=== PATIENT | female | born 1940 | race Caucasian/White ===

== ENCOUNTER → 2017-05-28 | Outpatient (CLI) | payer OTHER ==
[~2017-05-28] MED LIST: IBUP-1050 PO
--- NOTE | 2017-05-28 15:12 | MAMMOGRAPHY REPORT ---
BILATERAL DIGITAL SCREENING MAMMOGRAM WITH CAD: 05/28/2017 CLINICAL HISTORY: Routine screening. Patient has no complaints. TECHNIQUE: Bilateral CC and MLO views were obtained. Current study was also evaluated with a Compute r Aided Detection (CAD) system. COMPARISON: Comparison is made to exams dated: 05/22/2016 mammogram, 05/10/2015 mammogram, 05/04/2014 m ammogram, 04/28/2013 mammogram, 04/22/2012 mammogram, and 04/13/2011 mammogram - [facility] nter. BREAST COMPOSITION: There are scattered areas of fibroglandular density in both breasts. FINDINGS: There are a few benign round calcifications in the breasts. Stable asymmetry in the superi or right breast. No new suspicious mass, architectural distortion or cluster of microcalcifications is seen. IMPRESSION: ACR BI-RADS CATEGORY 1: NEGATIVE There is no mammographic evidence of malignancy. A 1 year screening mammogram is recommended. The pa tient will receive written notification of the results. Approximately 10% of breast cancers are not detected with mammography. A negative mammographic report should not delay biopsy if a clinically suggestive mass is present. Cassie Zhu M.D. ay/:05/28/2017 09:16:47 Mortgage Manager: Lakeisha DEJESUS(R)(M), [facility] letter sent: Normal 1/2 BI-RADS Code: ACR BI-RADS Category 1: Negative
== END | disposition home or self-care (01) ==
LOC: C.MAMM 07:15
PROVIDERS: ATTEND Family Medicine
DX: Z12.31 Encounter for screening mammogram for malignant neoplasm of breast (principal)

== ENCOUNTER → 2017-07-26 | Outpatient (CLI) | payer OTHER ==
--- NOTE | 2017-07-26 12:14 | DIAGNOSTIC IMAGING REPORT ---
RIGHT INJ MAJOR JNT SHLDR,HIP,KNEE CLINICAL HISTORY: 77 years-old Female presenting with RIGHT HIP PAIN Right. COMPARISON: None. PROCEDURE: The risks, benefits, and alternatives to the procedure were discussed with the patient. Written informed consent was obtained. The patient was placed supine on the fluoroscopy table, and a right hip injection was performed under fluoroscopic guidance. The area was prepped and draped in the usual sterile fashion. The skin and soft tissues anesthetized with local 1% lidocaine. The right hip joint was accessed utilizing a 22-gauge needle, and approximately 1 cc of Optiray 300 was injected into the joint space under fluoroscopic guidance the confirm intra-articular location. Subsequently, a 10 mL mixture of 2 mL of betamethasone and 8 mL of 0.5% bupivacaine was administered into the joint. The procedure was well tolerated and without immediate complication. Fluoroscopy dosage (mGy): Not available. Fluoroscopy time: 18 seconds. Number of fluoroscopic spot images: 0. IMPRESSION: Successful injection of the right hip under fluoroscopic guidance. Electronically signed by: Willam Bonilla M.D. 07/26/2017 12:13 PM Dictated Date/Time: 07/26/2017 12:11 PM
== END | disposition home or self-care (01) ==
LOC: C.RADBC 10:56
PROVIDERS: ATTEND Orthopaedic Surgery Sports Medicine
DX: M16.10 Unilateral primary osteoarthritis, unspecified hip (principal); M70.71 Other bursitis of hip, right hip

== ENCOUNTER 2017-10-08 05:16 | Inpatient (IN) | payer OTHER ==
[2017-09-10 08:45] VITALS: BMI 22.0
--- NOTE | 2017-09-10 09:20 | PAT Medication Instructions ---
Service Date Sep 10, 2017. Current Home Medication List Ibuprofen (Advil), 600 MG PO TID Medication Instructions For Your Scheduled Surgery - Check with surgeon for instructions: Ibuprofen (Advil), 600 MG PO TID If you have any questions please call us at [phone] or [phone] or [phone]
[2017-09-10 10:04] LABS: BASO % 0.5 %; BASO ABS # 0.04 K/uL (0-0.2); COMPLETE YES; EOS % 1.2 %; HEMATOCRIT 38.2 % (37-47); IG% 0.2 %; LYMPH % 28.2 %; LYMPH ABS # 2.35 K/uL (1.2-3.4); MEAN CELL VOLUME 90.1 fL (80-100); MEAN CORPUSCULAR HEMOGLOBIN 29.7 pg (25-34); MEAN PLATELET VOLUME 9.4 fL (7.4-10.4); MONO % 4.7 %; NEUT % 65.2 %; PLATELET COUNT 302 K/uL (130-400); RED BLOOD COUNT 4.24 M/uL (4.2-5.4); WHITE BLOOD COUNT 8.34 K/uL (4.8-10.8)
--- NOTE | 2017-09-10 10:06 | DIAGNOSTIC IMAGING REPORT ---
CHEST PREADMISSION(PA/LAT) HISTORY: 77 years-old Female PAT preoperative exam. No acute chest complaints COMPARISON: None available TECHNIQUE: Frontal and lateral views of the chest FINDINGS: Cardiomediastinal and hilar silhouettes are within normal limits. Atherosclerosis of the aorta. Lungs are hyperinflated with diaphragmatic flattening. Mild biapical pleural-parenchymal scarring and mild background interstitial coarsening without pneumothorax, pleural effusion or focal airspace consolidation. Increased lucency of the lungs suggests emphysema. Degenerative changes of the spine and shoulders are noted. Surgical clips of the upper abdomen suggest prior cholecystectomy. IMPRESSION: Probable emphysema without acute cardiopulmonary process. The above report was generated using voice recognition software. It may contain grammatical, syntax or spelling errors. Electronically signed by: Richie Singh M.D. 09/10/2017 10:04 AM Dictated Date/Time: 09/10/2017 10:03 AM
[2017-09-10 10:20] LABS: INR 0.9 (0.9-1.1); PROTHROMBIN TIME (PATIENT) 9.8 SECONDS (9.0-12.0)
--- NOTE | 2017-10-05 08:48 | HISTORY & PHYSICAL EXAMINATION ---
DATE OF ADMISSION: 10/08/2017 CHIEF COMPLAINT: Right hip pain. HISTORY OF PRESENT ILLNESS: The patient is a 77-year-old female who I have been following over the years for multiple musculoskeletal complaints. Over the past several years, she developed increased right hip pain and discomfort. We have given her some bursal injections with minimal relief. She did have an intra-articular hip joint injection which initially aggravated her symptoms for a period of time and then seemed to resolve them for a while. She developed increasing groin pain. It radiates down to her knee and causes some knee pain. The more she walks, the more it hurts. She has the upcoming trip in January and would like to have her hip better so she can walk better. X-rays show moderate hip arthritis. The patient elected to proceed with operative treatment. PAST MEDICAL HISTORY: Noncontributory. PAST SURGICAL HISTORY: 1. Appendectomy. 2. Cholecystectomy. 3. Hysterectomy. ALLERGIES: CODEINE WHICH CAUSES NAUSEA. CURRENT MEDICATIONS: Advil. SOCIAL HISTORY: 77-year-old female. She is and lives alone. Does not smoke. FAMILY HISTORY: Negative for heart disease, diabetes, or blood clots. REVIEW OF SYSTEMS: Negative for diabetes, neurologic problems, vascular problems or bleeding disorders. No chest pain or shortness of breath. No history of DVT or PE. PHYSICAL EXAMINATION: GENERAL: Reveals a healthy pleasant female. She looks younger than her stated age. HEENT: Benign. NECK: Supple. No lymphadenopathy. LUNGS: Clear to auscultation. HEART: Regular rate and rhythm. ABDOMEN: Soft, nontender, nondistended. EXTREMITIES: Grossly neurovascularly intact except as follows: Examination of the right leg reveals the patient walks with a slightly antalgic gait. Clinically, the leg lengths appear equal. She does have pain and stiffness with hip rotation, particularly internal rotation which reproduces her pain. Negative straight leg raise. She is neurologically intact. Examination of the right knee reveals bony hypertrophy. Minimal tenderness over the medial joint line. Minimal knee effusion. No instability. X-RAYS: X-rays of the right hip reveal moderate to advanced hip arthritis. She has got near complete loss of her joint space. She has less severe arthritis in the left side. X-rays of the knee reveal moderately advanced knee arthritis as well in both knees. ASSESSMENT: 77-year-old white female with right lower extremity pain consistent with: 1. 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 Her hip seems to be the limiting factor and unresponsive to conservative treatment. She would like to have her right hip fixed. PLAN: We are going to take her to the operating room and do a right total hip replacement. The risks and benefits of this procedure were explained to the patient including but not limited to DVT, PE, , infection, neurological injury, vascular injury, bleeding problems, pain, limited range of motion, stiffness, failure to relieve symptoms, incomplete relief of symptoms, need for further surgery in the future, fracture, leg length inequality, nerve palsy, dislocation, etc. The patient understands and desires to proceed. Informed consent was obtained. As far as discharge plans, she is hoping to be discharged to home using [facility]. Her daughter is going to come and stay with her for a while.
[~2017-10-08] VITALS: Ht 157.5 cm; Wt 56.6 kg
[2017-10-08] VITALS (19 sets, daily range): BP systolic 114–175; BP diastolic 54–72; PULSE 47–65; TEMP 36.4–36.7; O2SAT 87–100; Ht 157.5 cm; Wt 56.6 kg
[2017-10-08] MEDS ORDERED: ACET-1256 PO (05:38)
[2017-10-08] MEDS ORDERED: ACETAMINOPHEN 500 MG TAB PO SCH (06:00)
[2017-10-08] MEDS ORDERED: GABAPENTIN 300 MG CAP PO SCH (06:00)
[2017-10-08] MEDS ORDERED: LACTATED RINGER'S 1000ML 1,000 ML IV SCH (06:00)
[2017-10-08] MEDS ORDERED: LACTATED RINGER'S 1000ML 500 ML IV ONE (06:00)
[2017-10-08] MEDS ORDERED: FAMOTIDINE 20 MG TAB PO SCH (06:00)
[2017-10-08] MEDS ORDERED: METOCLOPRAMIDE HCL 10 MG TAB PO SCH (06:00)
[2017-10-08] MEDS ORDERED: TRANEXAMIC ACID INJ 1,000 MG in SYRINGE 0 ML IV SCH (06:00)
[2017-10-08] MEDS ORDERED: CEFAZOLIN 2000MG IV PUSH 10 ML IV SCH (06:00)
[2017-10-08] MEDS ORDERED: LACTATED RINGER'S 1000ML IV SCH (06:00)
[2017-10-08] MEDS ORDERED: SCOPOLAMINE 1.5 MG TDSY TD SCH (06:00)
[2017-10-08] MEDS ORDERED: BUPIVACAINE 0.5 % 5 MG/1 ML PF 10ML VIAL ONE (06:36)
[2017-10-08] MEDS ORDERED: PROPOFOL IV EMULSION 10 MG/ML 20 ML VIAL IV ONE (06:44)
[2017-10-08] MEDS ORDERED: MIDAZOLAM HCL 1 MG/ML 2ML VIAL ONE (06:44)
[2017-10-08] MEDS ORDERED: ONDANSETRON INJ 2 MG/ML 2 ML VIAL ONE (06:44)
[2017-10-08] MEDS ORDERED: FENTANYL CITRATE INJ 50 MCG/1 ML 2 ML VIAL ONE (06:44)
[2017-10-08] MEDS ORDERED: LIDOCAINE HCL 2% 2 ML VIAL (20MG/ML) ONE (06:44)
[2017-10-08] MEDS ORDERED: MORPHINE SULFATE PF 2MG/2ML SYR ONE (06:46)
--- NOTE | 2017-10-08 06:51 | History & Physical Bridge Note ---
H&P Re-Evaluation Bridge Note: I have examined the patient, reviewed the History & Physical and in the interval since the performance of the History & Physical I have noted the following changes of clinical significance: No changes noted
[2017-10-08] MEDS ORDERED: BUPIVACAINE/EPINEPHRINE 0.5% MPF 1:200,000 30 ML VIAL ONE (06:56)
[2017-10-08] MEDS ORDERED: BACITRACIN 50000 UNIT VIAL ONE (06:56)
[2017-10-08] MEDS ORDERED: SODIUM CHLORIDE 0.9% 1000ML 1,000 ML IV PRN (07:22)
[2017-10-08] MEDS ORDERED: NALOXONE HCL INJ 0.08 MG in SYRINGE 1.8 ML IV PRN (07:22)
[2017-10-08] MEDS ORDERED: LACTATED RINGER'S 1000ML 500 ML IV PRN (07:22)
[2017-10-08] MEDS ORDERED: NALOXONE HCL INJ 1 MG in SODIUM CHLORIDE 0.9% 1000ML 1,000 ML IV PRN (07:22)
[2017-10-08] MEDS ORDERED: MoRPHine SULFATE PF 1 MG/ML 10 ML AMP/VIAL INT SPINAL PRN (07:30)
[2017-10-08] MEDS ORDERED: ONDANSETRON INJ 2 MG/ML 2 ML VIAL IV PRN ×2 (07:30)
[2017-10-08] MEDS ORDERED: EpHEDrine SULFATE INJ 50 MG/ML AMP IV PRN ×2 (07:30)
[2017-10-08] MEDS ORDERED: ATROPINE SULFATE 0.1 MG/ML 5ML SYR IV PRN (07:30)
[2017-10-08] MEDS ORDERED: NALOXONE HCL 0.4 MG/1 ML VIAL/CARP IV PRN (07:30)
[2017-10-08] MEDS ORDERED: MoRPHine SULFATE 2 MG/ML CARP IV PRN (07:30)
[2017-10-08] MEDS ORDERED: DiphenhydrAMINE HCL 50 MG/ML VIAL IV PRN (07:30)
[2017-10-08] MEDS ORDERED: FENTANYL CITRATE INJ 50 MCG/1 ML 2 ML VIAL IV PRN (07:30)
[2017-10-08] MEDS ORDERED: NO NARCOTICS OR SEDATIVES SCH (07:30)
--- NOTE | 2017-10-08 08:54 | [facility] Post Operative Brief Note ---
Immediate Operative Summary Operative Date Oct 08, 2017. Pre-Operative Diagnosis Advanced Right Hip Degenerative Joint Disease Post-Operative Diagnosis Advanced Right Hip Degenerative Joint Disease + Chronic Hip Abductor Avulsion Procedure(s) Performed Right Total Hip Arthroplasty--Uncemented with Right Hip Abductor Repair Surgeon Dr. Castillo Basketball Coach Surgeon(s) JOHN Singh Estimated Blood Loss 300 ml Findings Hip DJD + Chronic Hip Abductor Avulsion Fluids (cc crystalloids) 1500 cc Specimens A. Right Femoral Head Drains None Anesthesia Spinal Complication(s) None Disposition Recovery Room / PACU
[2017-10-08] MEDS ORDERED: ALUMINUM/MAGNESIUM/SIMETH (MAALOX MAX) 30 ML UDC PO PRN (09:00)
[2017-10-08] MEDS ORDERED: BISACODYL 10 MG SUPP PR PRN (09:00)
[2017-10-08] MEDS ORDERED: MAGNESIUM HYDROXIDE SUSP 30 ML UDC PO PRN (09:00)
[2017-10-08] MEDS ORDERED: SILVER SULFADIAZINE 1% CR 50 GM JAR EXT PRN (09:00)
[2017-10-08] MEDS ORDERED: METOCLOPRAMIDE HCL INJ 5 MG/ML 2 ML VIAL IV PRN (09:00)
--- NOTE | 2017-10-08 09:25 | Anesthesiology Progress Note ---
Anesthesia Post Op Note Date & Time Oct 08, 2017 at 09:25 Vital Signs Pain Intensity: 0 Vital Signs Past 12 Hours Date Time Temp Pulse Resp B/P (MAP) Pulse Ox O2 Delivery O2 Flow Rate FiO2 10/08/17 09:20 56 13 151/63 94 Nasal Cannula 2 10/08/17 09:10 54 15 145/68 96 Nasal Cannula 2 10/08/17 09:00 54 13 135/54 98 Oxymask 10 10/08/17 08:52 36.6 57 10 128/56 98 Oxymask 10 10/08/17 05:44 36.6 65 18 164/72 94 Room Air Notes Mental Status: alert / awake / arousable, participated in evaluation Pt Amnestic to Procedure: Yes Nausea / Vomiting: adequately controlled Pain: adequately controlled Airway Patency, RR, SpO2: stable & adequate BP & HR: stable & adequate Hydration State: stable & adequate Neuraxial Anesthesia: was administered, sensory block is resolving Anesthetic Complications: no major complications apparent
--- NOTE | 2017-10-08 09:26 | DIAGNOSTIC IMAGING REPORT ---
R PELVIS/UNILATERAL HIP 1 VIEW CLINICAL HISTORY: IN PACU - A/P PELVIS and LATERAL HIP INCLUDING ALL OF IMPLANT COMPARISON: None. DISCUSSION: Anatomic alignment status post total right hip replacement. Good contact between prosthetic and the Bone. Expected soft tissue postoperative change. IMPRESSION: Anatomic parameters status post total right hip replacement. The above report was generated using voice recognition software. It may contain grammatical, syntax or spelling errors. Electronically signed by: Beau Allison M.D. 10/08/2017 9:25 AM Dictated Date/Time: 10/08/2017 9:24 AM
--- NOTE | 2017-10-08 09:28 | OPERATIVE REPORT ---
DATE OF OPERATION: 10/08/2017 SURGEON: Sherman Castillo MD. ANGIO TECHNOLOGIST: JOHN Connors. PREOPERATIVE DIAGNOSIS: Right hip degenerative joint disease. POSTOPERATIVE DIAGNOSES: 1. Right hip degenerative joint disease. 2. Right hip chronic abductor avulsion. PROCEDURE PERFORMED: 1. Right uncemented total hip arthroplasty. 2. Right hip abductor repair. COMPLICATIONS: None. ESTIMATED BLOOD LOSS: 300 mL. FLUID REPLACEMENT: 1500 mL crystalloid fluid replacement. ANESTHESIA: Spinal. DRAINS: None. SPECIMENS: Right femoral head sent for pathology. OPERATIVE INDICATIONS: The patient is a 77-year-old female who has had a long history of bilateral hip as well as knee pain. I have been treating her for the past several years. The injection in her knee seemed to help her. Her hip pain has gotten progressively worse and unresponsive to conservative care. It is really limiting her activities. She elected to proceed with total hip arthroplasty. She was made fully aware that this is not going to help her knee disease. OPERATIVE FINDINGS: Operative findings revealed advanced right hip DJD. She had a moderate sized joint effusion. She had fairly inflammatory looking hip process consistent with her psoriasis and maybe some psoriatic arthritis. She had osteophytes around the femoral head and acetabulum. She had some mild synovitis. Diffuse osteopenia. She also had a chronic hip abductor avulsion. OPERATIVE IMPLANTS: Operative implants consisted of: 1. Biomet G7 size 48 mm acetabular shell. 2. A 6.5 cancellous acetabular screws, 1 of 35 mm in length. 3. An apex hole eliminator. 4. Highly cross-linked polyethylene liner with a 48 mm outer diameter and 32 mm inner diameter with a monte placed posterior and inferior. 5. DePuy size 10.5 small stature AML femoral stem. 6. A +1/32 mm metal articular ball. OPERATIVE PROCEDURE: The patient taken to the operating room, identified and placed on the operating table in supine position. All contact areas were appropriately padded. IV antibiotics were provided by anesthesia team. A spinal anesthetic had been implemented in holding area. Britt catheter was placed in sterile fashion. The patient was then placed in the left lateral decubitus position. An axillary roll was placed. [facility] was used for positioning. Right hip and leg were then prepped and draped in usual sterile fashion. A posterolateral approach to the right hip was then performed through a curvilinear incision centered over the greater trochanter. Sharp dissection was carried out through the subcutaneous tissue down to the level of the IT band and gluteal fascia. The IT band and gluteal fascia were incised longitudinally in line with the skin incision. The underlying greater trochanteric bursa was excised. The chronic hip abductor avulsion was easily visualized. The piriformis and external rotators were tagged and taken off the posterior aspect of the joint capsule. Great care was taken throughout the procedure to protect the sciatic nerve at all times. Posterior capsulotomy was then performed leaving a large flap for later repair. Hip was internally rotated and dislocated. Femoral neck osteotomy cut was made with a final cut about 8 mm above the lesser trochanter. Femoral head was removed and sent for pathology. The femur was retracted anteriorly. Attention was then drawn to the acetabulum. The acetabulum labrum was excised. The pulvinar fat was excised. Sequential reaming of the acetabulum was then performed beginning with a size 41 and progressing up to 47. I then did ream with a 48 mm just open the entrance as there were some osteophytes. A 48 mm Biomet G7 acetabular shell was then placed in about 40 degrees of lateral opening and 20 degrees of anteversion. It was fixed with two 6.5 cancellous acetabular screws. A trial liner was placed. I eventually did take out one of the screws as I could not quite seat it and I kept the polyethylene from the seating. A trial liner was placed. Attention was then drawn to the femur. The proximal femur was entered with a cookie cutter followed by canal finder and lateralizing reamer. I reamed beginning with a size 9 and started even getting chatter at 9, so we reamed up to a 10. Her bone was pretty osteopenic and I did not want to risk a fracture. I then broached with a 10.5 broach. We had to broach this several times. A calcar reamer was then used to smoothen off the calcar. I then trialed the hip and the +1 articular ball seemed to provide soft tissue tension appropriately. I was fully aware that I may have lengthen her a couple millimeters, but I felt it was essential to maximize her stability. The hip was fully stable in full extension and external rotation and flexion to 90 degrees, internal rotation to [address] a hooded liner with the monte posterior and inferior to maximize stability posteriorly. I elected to do this, especially considering her chronic hip abductor avulsion. We elected to place these implants. All trial implants were removed. An apex hole eliminator was placed. I did remove the posterior screw and there was just 1 remaining screw at the acetabulum which did have good fixation. A highly cross-linked polyethylene liner with a monte placed posterior and inferior was then impacted in position. A 10.5 small stature AML femoral stem was placed. We got pretty good fit. A +1/32 mm metal articular ball was placed. Hip was located once again and found to be stable. Attention was then drawn toward closing. The wound was irrigated with copious amounts of pulsatile lavage solution. I did inject locally with 60 mL of 0.5% ropivacaine with epinephrine. The posterior capsule and external rotators were repaired through drill holes in the posterior trochanter with #2 Ethibond suture. The hip abductor repair was then repaired with a single Biomet JuggerKnot anchor with 2 sutures, 1 placed at the anterior hip abductors and 1 to the superior hip abductors. I then repaired the soft tissue into the vastus lateralis tissue with #1 Vicryl suture in running fashion. The IT band and gluteal fascia were then closed with #1 PDS suture in running fashion. The subcutaneous tissues were then closed with 2 layers with the deep layer #1 Vicryl suture and subcutaneous tissues with 2-0 Dexon suture in a buried interrupted fashion. Skin was closed skin marek. Leg was then cleaned, dried and a sterile dressing of Xeroform, 4 x 4, sterile ABD pad and foam tape was applied. The patient then transferred to the recovery room in stable condition. The patient tolerated the procedure without complications. All needle and sponge counts were correct at the end of the operation. I attest to the content of the Intraoperative Record and any orders documented therein. Any exceptions are noted below. MELISSA
[2017-10-08] MEDS: D5W AND 1/2NSS + 20MEQ KCL 1,000 ML IV SCH ×2 (10:26→20:16)
[2017-10-08] MEDS: FERROUS GLUCONATE 324 MG TAB PO SCH ×2 (12:30→17:55)
[2017-10-08] MEDS: ASPIRIN 325 MG ECTAB PO SCH ×2 (12:32→20:16)
[2017-10-08] MEDS: KETOROLAC TROMETHAMINE 15 MG/ML VIAL IV. SCH ×2 (12:34→17:56)
[2017-10-08] MEDS: ACETAMINOPHEN 500 MG TAB PO SCH ×2 (13:13→21:45)
[2017-10-08] MEDS ORDERED: TRANEXAMIC ACID INJ 1,000 MG in SODIUM CHLORIDE 0.9% 100ML 100 ML IV SCH (15:30)
[2017-10-08] MEDS: CEFAZOLIN IV 1,000 MG in SYRINGE 0 ML IV SCH (15:56)
[2017-10-08] MEDS: CHECK SCOPOLAMINE PATCH PLACEMENT SCH (15:57)
[2017-10-08] MEDS ORDERED: CEFAZOLIN IV 1,000 MG in DEXTROSE 5% 50ML 50 ML IV SCH (16:00)
--- NOTE | 2017-10-08 17:56 | PROGRESS NOTE ---
DATE: 10/08/2017 SUBJECTIVE: A 77-year-old white female postop from a right total hip replacement. She is doing well. Not having any pain. No chest pain or shortness of breath. Not feeling dizzy or lightheaded. OBJECTIVE: VITAL SIGNS: Temperature is 36.5. Vital signs stable. GENERAL: Physical examination reveals a pleasant elderly female. I awake her this afternoon when I went in her room. She is resting comfortably. LUNGS: Clear to auscultation. HEART: Regular rate and rhythm. ABDOMEN: Soft, nontender, and nondistended. EXTREMITIES: Grossly neurovascularly intact except as follows: Examination of right hip and leg reveals the leg to be well aligned. Leg lengths appear equal. Hip is located. Dressings clean, dry and intact. Thigh is soft and supple. She is neurologically intact. She can dorsiflex and plantarflex her foot appropriately. X-RAYS: X-rays of the right hip from recovery room were reviewed. It shows right uncemented total hip arthroplasty. The components looked to be in good position. No signs of problems. ASSESSMENT: A 77-year-old white female postop from a right total hip replacement, doing well. Pain is controlled. Hip is located. She is neurologically intact. PLAN: 1. DVT prophylaxis including thigh-high TEDs, SCDs, and aspirin twice a day. 2. PT/OT. Weightbear as tolerated. Right total hip protocol. 3. Pain control. Doing well with current pain regimen. 4. IV antibiotics x24 hours. 5. Disposition: Plan to discharge to home with some home health and her daughter's assistance once adequately recovered.
[2017-10-08] MEDS: DOCUSATE SODIUM 100 MG CAP PO SCH (20:17)
[2017-10-08] MEDS: SENNA 8.6 MG TAB PO SCH (20:17)
[2017-10-09 00:01] VITALS: O2SAT 95
[2017-10-09] MEDS: CHECK SCOPOLAMINE PATCH PLACEMENT SCH ×3 (00:08→16:00)
[2017-10-09] MEDS: KETOROLAC TROMETHAMINE 15 MG/ML VIAL IV. SCH ×4 (00:09→19:02)
[2017-10-09] MEDS: CEFAZOLIN IV 1,000 MG in SYRINGE 0 ML IV SCH (00:26)
[2017-10-09 01:00] VITALS: O2SAT 96
[2017-10-09] MEDS ORDERED: HYDROmorphone INJ 0.5 MG/0.5 ML SYR IV PRN (01:00)
[2017-10-09] MEDS ORDERED: ZOLPIDEM TARTRATE 5 MG TAB PO PRN (01:00)
[2017-10-09] MEDS ORDERED: ONDANSETRON INJ 2 MG/ML 2 ML VIAL IV PRN (01:00)
[2017-10-09] MEDS ORDERED: DC INTRASPINAL MORPHINE SCH (01:00)
[2017-10-09 04:00] VITALS: BP 120/68; PULSE 51; TEMP 37.1; O2SAT 96
[2017-10-09] MEDS: ACETAMINOPHEN 500 MG TAB PO SCH ×3 (05:46→21:24)
[2017-10-09] MEDS: D5W AND 1/2NSS + 20MEQ KCL 1,000 ML IV SCH (05:49)
[2017-10-09 06:36] LABS: BASO % 0.3 %; BASO ABS # 0.03 K/uL (0-0.2); COMPLETE YES; EOS % 0.7 %; HEMATOCRIT 30.7 % (37-47); IG% 0.3 %; LYMPH % 16.9 %; LYMPH ABS # 1.63 K/uL (1.2-3.4); MEAN CELL VOLUME 92.5 fL (80-100); MEAN CORPUSCULAR HEMOGLOBIN 29.2 pg (25-34); MEAN CORPUSCULAR HGB CONC 31.6 g/dl (32-36); MEAN PLATELET VOLUME 9.2 fL (7.4-10.4); MONO % 7.2 %; NEUT % 74.6 %; PLATELET COUNT 264 K/uL (130-400); RED BLOOD COUNT 3.32 M/uL (4.2-5.4); WHITE BLOOD COUNT 9.67 K/uL (4.8-10.8)
[2017-10-09 07:00] VITALS: BP 98/55; PULSE 53; TEMP 37; O2SAT 97
[2017-10-09 07:15] LABS: BUN/CREATININE RATIO 28.2 (10-20); CREATININE 0.79 mg/dl (0.60-1.20); POTASSIUM 4.3 mmol/L (3.5-5.1)
--- NOTE | 2017-10-09 07:40 | Anesthesiology Progress Note ---
Anesthesia Post Op Note Date & Time Oct 09, 2017 at 07:40 Vital Signs Pain Intensity: 0.0 Vital Signs Past 12 Hours Date Time Temp Pulse Resp B/P (MAP) Pulse Ox O2 Delivery O2 Flow Rate FiO2 10/09/17 07:00 37.0 53 16 98/55 (69) 97 Room Air 10/09/17 04:00 37.1 51 16 120/68 (85) 96 Room Air 10/09/17 01:00 16 96 Room Air 10/09/17 00:05 Room Air 10/09/17 00:01 16 95 Room Air 10/08/17 23:00 36.7 58 16 127/62 (83) 95 Room Air 10/08/17 22:00 16 93 10/08/17 21:00 16 94 10/08/17 20:00 15 94 10/08/17 19:55 36.5 59 15 133/65 (87) 95 Room Air Notes Mental Status: alert / awake / arousable, participated in evaluation Pt Amnestic to Procedure: Yes Nausea / Vomiting: adequately controlled Pain: adequately controlled Airway Patency, RR, SpO2: stable & adequate BP & HR: stable & adequate Hydration State: stable & adequate Neuraxial Anesthesia: was administered, sensory block resolved Anesthetic Complications: no major complications apparent
[2017-10-09] MEDS: TRAMADOL HCL 50 MG TAB PO PRN (08:45)
[2017-10-09] MEDS: PANTOprazole SOD 40 MG TAB PO SCH (08:46)
[2017-10-09] MEDS: FERROUS GLUCONATE 324 MG TAB PO SCH ×3 (08:46→19:02)
[2017-10-09] MEDS: MULTIVITAMIN TAB PO SCH (08:46)
[2017-10-09] MEDS: DOCUSATE SODIUM 100 MG CAP PO SCH ×2 (08:47→21:23)
[2017-10-09] MEDS: ASPIRIN 325 MG ECTAB PO SCH ×2 (08:47→21:23)
--- NOTE | 2017-10-09 09:10 | PROGRESS NOTE ---
DATE: 10/09/2017 SUBJECTIVE: 77-year-old white female postop day 1 from a right total hip replacement with hip abductor repair. She is doing well. Pain is manageable. No chest pain or shortness of breath. Not feeling dizzy or lightheaded. OBJECTIVE: VITAL SIGNS: Temperature 37.0. Vital signs stable. PHYSICAL EXAMINATION: GENERAL: Pleasant elderly female. She is sitting up in her bedside chair and looks pretty comfortable. EXTREMITIES: Examination of the right hip reveals leg lengths to be equal. Her dressing is clean, dry and intact. She can dorsiflex and plantarflex her foot appropriately. She is neurologically intact. LABORATORY DATA: Hemoglobin 9.7, hematocrit 30.7. Electrolytes are stable. ASSESSMENT: 77-year-old white female postoperative day 1 from right total hip replacement, doing well. Pain is reasonably well controlled. Hip is located. She is neurologically intact. PLAN: 1. DVT prophylaxis including thigh-high TEDs, SCDs, and aspirin twice a day. 2. PT/OT. Weight bear as tolerated. Right total hip protocol. No active hip abduction for 6 weeks due to abductor repair. 3. Pain control, doing pretty well with current pain regimen. 4. Disposition: Plan to discharge to home. Her daughter is going to stay with her along with some home health.
[2017-10-09 15:18] VITALS: BP 139/70; PULSE 71; TEMP 37.2
[2017-10-09] MEDS: SENNA 8.6 MG TAB PO SCH (21:23)
[2017-10-09] MEDS ORDERED: ULT50X PO (21:26)
[2017-10-09] MEDS ORDERED: ASPEC325 PO (21:26)
[2017-10-09] MEDS ORDERED: ACET-24 PO (21:26)
[2017-10-09] MEDS ORDERED: FRRG PO (21:26)
--- NOTE | 2017-10-09 21:29 | Discharge Instructions ---
Discharge Instructions Date of Service Oct 09, 2017. Admission Reason for Admission: Right Hip Degenerative Joint Disease Discharge Discharge Diagnosis / Problem: Right Hip Replacement Discharge Goals Goal(s): Decrease discomfort, Improve function, Increase independence, Improve disease control, Therapeutic intervention Activity Recommendations Activity Limitations: per Instructions/Follow-up section (Total Hip Precautions ) Weightbearing Status: Right weightbearing . Instructions / Follow-Up Instructions / Follow-Up ACTIVITY RECOMMENDATIONS: Physical Therapy: * Aggressive physical therapy is not usually needed. You will learn to take care of yourself safely and walk. * Follow the "Hip Precautions Instructions." * In some cases, the social staff worker at the hospital will arrange to have a therapist come to your house for the first couple of weeks to help you learn these skills. * You need to practice on your own or with the help of a family member as needed. * When you learn these skills, most of the therapy can be done on your own. Home Exercise: * You were shown a series of exercises in the hospital. Do these exercises three to four times each day including the exercises you were shown in physical therapy. Walking: * Get up and walk several times each day. For the first four weeks, try not to stand or walk for more than one hour at a time. If you do stand or walk for more than one hour, you will not hurt anything, but your leg will likely swell. * As you feel comfortable, you may change from the walker or crutches to a cane and then to independent walking. MEDICATIONS: New Medicine: * You will likely be taking one or more of these medicines: 1. Tramadol - Take, as directed, when you need it, every four to six hours to control your pain. 2. Iron Sulfate - Take three times each day for the month after surgery to help you replace the blood lost during surgery. 3. Aspirin - Thins your blood to lessen the chance of forming a blood clot. * The most common side effects of pain medicine and iron are nausea and constipation. If nausea or constipation is too much of a problem or if you have any questions about your new medicines or doses, call [facility] at [phone]. We will try to help you manage these issues. VERY IMPORTANT TO READ AND REVIEW" Pain: * The immediate post-operative period after hip replacement surgery is often quite painful. * You are given a prescription for pain medicine. You should take it, as directed, when you need it, especially before physical therapy and before going to bed. Pain that interferes with sleep is very common and can last several months. * You will likely need pain medicine for the first two to four weeks. It will not stop all of the pain. The pain will lessen and as you feel better, you may change to milder pain medicine such as Tylenol. * The most common side effects of pain medicine are nausea and constipation, so don't take more than you need. SPECIAL CARE INSTRUCTIONS: TEDs/Elastic Stockings: * The white elastic stockings help limit swelling and prevent blood clots from forming in your legs. The more you wear them, the more they work. * Wear them for six weeks. Prevention of Infection: * Take antibiotics one hour before any dental cleaning, dental work, urological procedure, gastrointestinal procedure or any invasive surgery in order to prevent your new joint from getting infected. * You may get the antibiotics from the doctor performing the procedure or you may call our office at before and we will call in a prescription to the pharmacy of your choice. Things to Watch For: * Drainage from the incision site that occurs more than one week after your surgery. * Severely increased leg pain or swelling. * Increased redness at the incision site. * Fever above 102 degrees Fahrenheit. * Unusual chest pain or shortness of breath. * Unusual pain or burning with urination. Call [facility] at with any of the above problems or if you have any questions about your medicines or recovery. FOLLOW UP VISIT: Make an appointment to see your doctor for approximately two weeks after surgery for a progress check and staple removal by calling the office at . Current Hospital Diet Patient's current hospital diet: Regular Diet Discharge Diet Recommended Diet: Regular Diet Procedures Procedures Performed: Right Total Hip Arthroplasty--Uncemented with Right Hip Abductor Repair Pending Studies Studies pending at discharge: no Medical Emergencies . Who to Call and When: Medical Emergencies: If at any time you feel your situation is an emergency, please call [phone] immediately. . Non-Emergent Contact Non-Emergency issues call your: Surgeon . "Provider Documentation" section prepared by Sherman Castillo. . VTE Core Measure Inpt VTE Proph given/why not?: Other Anticoagulation, T.E.D. Stockings, SCD's
[2017-10-10 00:13] VITALS: BP 137/69; PULSE 67; TEMP 37; O2SAT 95
[2017-10-10] MEDS: KETOROLAC TROMETHAMINE 15 MG/ML VIAL IV. SCH ×2 (00:15→05:41)
[2017-10-10] MEDS: CHECK SCOPOLAMINE PATCH PLACEMENT SCH ×2 (00:20→07:26)
[2017-10-10] MEDS: ACETAMINOPHEN 500 MG TAB PO SCH (05:41)
[2017-10-10 06:48] VITALS: BP 124/70; PULSE 68; TEMP 37.2; O2SAT 95
[2017-10-10] MEDS: ASPIRIN 325 MG ECTAB PO SCH (07:27)
[2017-10-10] MEDS: FERROUS GLUCONATE 324 MG TAB PO SCH (07:27)
[2017-10-10] MEDS: TRAMADOL HCL 50 MG TAB PO PRN ×2 (07:27→11:55)
[2017-10-10] MEDS: DOCUSATE SODIUM 100 MG CAP PO SCH (07:27)
[2017-10-10] MEDS: MULTIVITAMIN TAB PO SCH (07:28)
[2017-10-10] MEDS: PANTOprazole SOD 40 MG TAB PO SCH (07:28)
[2017-10-10 08:26] VITALS: O2SAT 95
[2017-10-10 10:49] VITALS: BP 124/70; PULSE 68; TEMP 37.2; O2SAT 95
--- NOTE | 2017-10-10 11:01 | PROGRESS NOTE ---
DATE: 10/10/2017 SUBJECTIVE: A 77-year-old white female, postop day 2 from right total hip replacement with hip abductor repair. She is doing pretty well. Pain is controlled. Really not much pain except for when she is walking. Denies any chest pain or shortness of breath. Not feeling dizzy or lightheaded. OBJECTIVE: VITAL SIGNS: Temperature 37.2. Vital signs stable. PHYSICAL EXAMINATION: GENERAL: Shows a pleasant elderly female. She is sitting in her bedside chair and looks pretty comfortable. EXTREMITIES: Examination of the right leg reveals the leg to be well aligned. Leg lengths are equal. Dressing is clean, dry and intact. Thigh is soft and supple. She is neurologically intact. ASSESSMENT: A 77-year-old white female, postop day 2 from right total hip replacement with hip abductor repair, doing pretty well. PLAN: 1. DVT prophylaxis including thigh-high TEDs, SCDs, and aspirin twice a day. 2. PT/OT. She can weightbear as tolerated. Right total hip protocol. No active hip abduction for 6 weeks. 3. Pain control. She is going to stick to Tylenol if at all possible. We will write her for some tramadol if needed. 4. Disposition. She is planning to be discharged to home when she is going to have someone come and stay with her and she is going to have home health as well.
[2017-10-10 11:25] VITALS: BP 134/73; PULSE 64; TEMP 36.8; O2SAT 98
--- NOTE | 2017-10-12 16:13 | DISCHARGE SUMMARY ---
ADMITTING PHYSICIAN AND SURGEON: Dr. Castillo. ADMITTING DIAGNOSIS: Right hip degenerative joint disease. SURGERY PERFORMED: 1. Right total hip arthroplasty. 2. Right hip abductor repair. SECONDARY DIAGNOSIS: Noncontributory. CONSULTS: None obtained. HISTORY AND PHYSICAL EXAMINATION: Well documented in the patient's chart. HOSPITAL COURSE: The patient is a 77-year-old female who was admitted on 10/08/2017 and underwent total hip arthroplasty, tolerated the procedure well and there were no complications. She was transferred to the PACU postoperatively and later to the orthopedic floor for further care. She was given Ancef for antibiotic prophylaxis, CELE stockings, SCDs and aspirin for DVT prophylaxis. Hemoglobin, hematocrit and vital signs were monitored during her hospital stay and remained stable. She developed some postoperative anemia with a hemoglobin of 9.7, but did not require any blood transfusions. There were no complications. By postoperative day #2, she was tolerating a regular diet. Pain was controlled with oral pain medicine. She was participating in physical therapy. No signs or symptoms of deep vein thrombosis. On postop day #2, she was discharged home and set up with home health services. She was given printed discharge instructions including new prescriptions for extra strength Tylenol, aspirin 325 mg b.i.d., iron supplement and tramadol. She can continue her home medicine which included just Advil, and her home dose of Tylenol was changed. She will continue physical therapy, weightbearing as tolerated, CELE stockings, total hip precautions. She was also instructed to avoid hip abduction for 6 weeks postoperatively. She will follow up in 10-12 days or sooner if there are any problems or concerns.
== END 2017-10-10 12:30 | disposition home health service (06) | DRG 470 ==
LOC: C.ACU 05:16 → C.3E 06:40 → ENRESERV 09:18
PROVIDERS: ADMIT Orthopaedic Surgery Sports Medicine; ATTEND Orthopaedic Surgery Sports Medicine
PROC: 0KQN0ZZ Repair Right Hip Muscle, Open Approach (ICD-10-PCS; principal; 2017-10-08 07:15)
PROC: 0SR902A Replacement of Right Hip Joint with Metal on Polyethylene Synthetic Substitute, Uncemented, Open Approach (ICD-10-PCS; principal; 2017-10-08 07:15)
DX: M16.11 Unilateral primary osteoarthritis, right hip (principal); S76.091A Other specified injury of muscle, fascia and tendon of right hip, initial encounter; M85.851 Other specified disorders of bone density and structure, right thigh; L40.50 Arthropathic psoriasis, unspecified; Z79.1 Long term (current) use of non-steroidal anti-inflammatories (NSAID); X58.XXXA Exposure to other specified factors, initial encounter

== ENCOUNTER 2018-02-08 20:34 | Emergency (ER) | payer OTHER ==
[~2018-02-08] VITALS: Ht 157.5 cm; Wt 58.9 kg
[~2018-02-08 20:34] MED LIST changes: +ACET-24 PO; +ASPEC325 PO; +FRRG PO; +ULT50X PO
[2018-02-08 20:37] VITALS: TEMP 36.7; Ht 157.5 cm; Wt 58.9 kg
[2018-02-08 21:12] LABS: BASO % 0.5 %; BASO ABS # 0.04 K/uL (0-0.2); EOS ABS # 0.26 K/uL (0-0.5); HEMATOCRIT 38.7 % (37-47); HEMOGLOBIN 12.6 g/dL (12.0-16.0); IG# 0.01 K/uL (0.00-0.02); LYMPH % 29.7 %; MEAN CELL VOLUME 86.6 fL (80-100); MEAN CORPUSCULAR HEMOGLOBIN 28.2 pg (25-34); MEAN CORPUSCULAR HGB CONC 32.6 g/dl (32-36); MEAN PLATELET VOLUME 9.5 fL (7.4-10.4); MONO ABS # 0.61 K/uL (0.11-0.59); NEUT % 59.7 %; NEUT ABS # 5.22 K/uL (1.4-6.5); PLATELET COUNT 383 K/uL (130-400); RED CELL DISTRIBUTION WIDTH CV 14.7 % (11.5-14.5); RED CELL DISTRIBUTION WIDTH SD 46.5 fL (36.4-46.3); WHITE BLOOD COUNT 8.74 K/uL (4.8-10.8)
[2018-02-08 21:23] LABS: PTT PATIENT 24.3 SECONDS (21.0-31.0)
[2018-02-08 21:28] LABS: ALBUMIN 3.6 gm/dl (3.4-5.0); CALCIUM 8.8 mg/dl (8.5-10.1); CREATININE 0.82 mg/dl (0.60-1.20); POTASSIUM 3.8 mmol/L (3.5-5.1)
[2018-02-08 21:32] LABS: TOTAL PROTEIN 7.2 gm/dl (6.4-8.2)
[2018-02-08] MEDS ORDERED: OPTIRAY 320 IV PRN (21:45)
--- NOTE | 2018-02-08 21:51 | EMERGENCY ROOM VISIT NOTE ---
History Report prepared by Sabas: Jordy Chang Under the Supervision of: Dr. Marcello Slater M.D. First contact with patient: 20:44 Chief Complaint: URINARY SYMPTOMS Stated Complaint: BLOOD IN URINE History of Present Illness The patient is an 78 year old female who presents to the Emergency Room with complaints of worsening blood in her urine beginning 6.5 hours ago. She states she currently does not have discomfort. The patient state she went to the restroom earlier and noticed her urine was slightly discolored. She reports she went to the restroom again 3.5 hours ago and 2.5 hours ago. The patient notes each time she went to the restroom, more blood was present. She states she has a history of trace blood in her urine but nothing like this. The patient reports she is prone to UTIs, and it does not feel like a UTI. She denies burning with urination, the urgency to urinate, nausea, flank pain, taking a blood thinner, and trauma to her kidneys or flank. Source of History: patient Onset: 6.5 hours ago Symptom Intensity: none Quality: other (blood in urine) Timing: worsening Associated Symptoms: No nausea Note: Denies: burning with urination, urgency to urinate, flank pain, taking a blood thinner, trauma to her kidney or flank Review of Systems See HPI for pertinent positives & negatives. A total of 10 systems reviewed and were otherwise negative. Past Medical & Surgical Medical Problems: (1) Cholecystectomy (2) Psoriasis (3) Right Hip DJD (4) Vertigo Surgical Problems: (1) S/P appendectomy (2) S/P hysterectomy Family History Cancer Diabetes mellitus FHx: gallbladder disease FHx: lung disease Hypertension Social History Smoking Status: Current Some Day Smoker Alcohol Use: none Marital Status: Housing Status: lives alone Occupation Status: employed Current/Historical Medications Scheduled Ibuprofen (Advil), 400 MG PO PRN UD Allergies Coded Allergies: Codeine (Verified Allergy, Unknown, NAUSEA AND VOMITING, 10/08/17) Physical Exam Vital Signs Date Time Temp Pulse Resp B/P (MAP) Pulse Ox O2 Delivery O2 Flow Rate FiO2 02/08/18 22:40 63 20 173/77 95 Room Air 02/08/18 20:37 36.7 69 20 206/83 95 Room Air Physical Exam GENERAL: Patient is in no acute distress. HEENT: No acute trauma, normocephalic atraumatic, mucous membranes moist, no nasal congestion, no scleral icterus. NECK: No stridor, no adenopathy, no meningismus, trachea is midline. LUNGS: Clear to auscultation bilaterally, no wheeze, no rhonchi, breath sounds equal. HEART: Without murmurs gallops or rubs, regular rate and rhythm. ABDOMEN: Soft, nontender, bowel sounds positive, no hernias, no peritonitis. BACK: No flank discomfort with percussion. EXTREMITIES: No cyanosis or edema, full range of motion of all the joints without pain or difficulty, no signs for acute trauma. NEUROLOGIC: Oriented x 3, no acute motor or sensory deficits, no focal weakness. SKIN: No rash, no jaundice, no diaphoresis. Medical Decision & Procedures ER Provider Diagnostic Interpretation: Radiology results as stated below per my review and radiologist interpretation: CT SCAN OF THE ABDOMEN AND PELVIS COMBO CLINICAL HISTORY: Hematuria. COMPARISON STUDY: No priors. TECHNIQUE: Before and following the IV administration of 93 cc of Optiray 320, CT scan of the abdomen and pelvis is performed from the lung bases to the proximal femora. Images are reviewed in the axial, sagittal, and coronal planes. IV contrast was administered without complication. A dose lowering technique was utilized adhering to the principles of ALARA. CT DOSE: 500.89 mGy.cm FINDINGS: Lung bases: The heart is normal in size and without pericardial effusion. The lung bases are clear noting dependent atelectasis at the right lung base. There is a small hiatal hernia. Liver: The contrast-enhanced liver is mildly enlarged, measuring 18.3 cm in length. The liver is normal in contour and attenuation. There is no intrahepatic biliary ductal dilatation. The hepatic veins and portal veins are patent. Gallbladder: Surgically absent noting clips in the gallbladder fossa. Spleen: Normal in size and attenuation. Pancreas: Unremarkable. Adrenal glands: Unremarkable. Kidneys: No renal calculi are identified on the unenhanced series. The contrast enhanced kidneys images demonstrate cortical atrophy. There is no left-sided hydronephrosis. There is a large heterogeneous/essentially necrotic mass lesion arising from the upper pole the right kidney. This measures approximately 7.5 x 9 x 5.5 cm. This likely extends into the left renal pelvis. There is mild to moderate right hydronephrosis. Hyperdense material is present within the right proximal ureter and likely represents blood products. There is no definite involvement of the right renal vein. There is heterogeneously diminished perfusion of the right kidney as compared to left. Nonspecific right-sided perinephric stranding is observed. No enhancing mass lesion is identified in the left kidney. A 3.6 cm cyst arises from the interpolar left kidney. Numerous additional subcentimeter cortical hypodensities also likely represent cysts but are too small for definitive characterization. Abdominal vasculature: The abdominal aorta is normal in course and caliber noting moderate atherosclerotic calcification. Bowel: The small bowel and colon are normal in course and caliber. The appendix is not identified and reported surgically absent. Peritoneum: There is no intraperitoneal free air or abdominal ascites. Lymphadenopathy: A retrocaval lymph node on image #134 measures 2.0 x 2.2 cm. No additional retroperitoneal lymph nodes are identified. Pelvic viscera: Evaluation of the pelvis is degraded by streak artifact from a right hip arthroplasty. The bladder is partially decompressed and grossly unremarkable. The uterus is surgically absent. No adnexal lesion is seen. Skeletal structures: The skeletal structures are osteopenic. No lytic or blastic lesions are seen. A right hip arthroplasty is in place. IMPRESSION: 1. There is a 9 cm centrally necrotic mass lesion arising from the upper pole of the right kidney. This should be considered renal cell carcinoma until proven otherwise, and this likely invades the right renal collecting system. 2. There is mild to moderate right-sided hydronephrosis, and hyperdense material is present within the right proximal ureter. This likely represents blood clots causing obstruction. 3. There is heterogeneously diminished perfusion of the right kidney as well as right-sided perinephric stranding. 4. 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 5. No enhancing lesion is identified in the left kidney. 6. No renal calculi are identified. 7. Additional findings as above. Electronically signed by: Marcello Lynn M.D. 02/08/2018 10:21 PM Dictated Date/Time: 02/08/2018 10:08 PM Laboratory Results 02/08/18 21:00 Red Blood Count 4.47, Mean Corpuscular Volume 86.6, Mean Corpuscular Hemoglobin 28.2, Mean Corpuscular Hemoglobin Concent 32.6, Mean Platelet Volume 9.5, Neutrophils (%) (Auto) 59.7, Lymphocytes (%) (Auto) 29.7, Monocytes (%) (Auto) 7.0, Eosinophils (%) (Auto) 3.0, Basophils (%) (Auto) 0.5, Neutrophils # (Auto) 5.22, Lymphocytes # (Auto) 2.60, Monocytes # (Auto) 0.61, Eosinophils # (Auto) 0.26, Basophils # (Auto) 0.04 02/08/18 21:00 Test 02/08/18 20:50 02/08/18 21:00 Urine Color RED Urine Appearance CLOUDY (CLEAR) Urine pH 6.0 (4.5-7.5) Urine Specific [place] 1.020 (1.000-1.030) Urine Protein NEG (NEG) Urine Glucose (UA) NEG (NEG) Urine Ketones NEG (NEG) Urine Occult Blood 3+ (NEG) Urine Nitrite NEG (NEG) Urine Bilirubin NEG (NEG) Urine Urobilinogen NEG (NEG) Urine Leukocyte Esterase NEG (NEG) Urine RBC >30 /hpf (0-4) Urine WBC 5-10 /hpf (0-5) Urine Epithelial Cells 10-20 /lpf (0-5) Urine Bacteria 1+ (NEG) White Blood Count 8.74 K/uL (4.8-10.8) Red Blood Count 4.47 M/uL (4.2-5.4) Hemoglobin 12.6 g/dL (12.0-16.0) Hematocrit 38.7 % (37-47) Mean Corpuscular Volume 86.6 fL (80-100) Mean Corpuscular Hemoglobin 28.2 pg (25-34) Mean Corpuscular Hemoglobin Concent 32.6 g/dl (32-36) Platelet Count 383 K/uL (130-400) Mean Platelet Volume 9.5 fL (7.4-10.4) Neutrophils (%) (Auto) 59.7 % Lymphocytes (%) (Auto) 29.7 % Monocytes (%) (Auto) 7.0 % Eosinophils (%) (Auto) 3.0 % Basophils (%) (Auto) 0.5 % Neutrophils # (Auto) 5.22 K/uL (1.4-6.5) Lymphocytes # (Auto) 2.60 K/uL (1.2-3.4) Monocytes # (Auto) 0.61 K/uL (0.11-0.59) Eosinophils # (Auto) 0.26 K/uL (0-0.5) Basophils # (Auto) 0.04 K/uL (0-0.2) RDW Standard Deviation 46.5 fL (36.4-46.3) RDW Coefficient of Variation 14.7 % (11.5-14.5) Immature Granulocyte % (Auto) 0.1 % Immature Granulocyte # (Auto) 0.01 K/uL (0.00-0.02) Prothrombin Time 10.0 SECONDS (9.0-12.0) Prothromb Time International Ratio 1.0 (0.9-1.1) Activated Partial Thromboplast Time 24.3 SECONDS (21.0-31.0) Partial Thromboplastin Ratio 0.9 Anion Gap 5.0 mmol/L (3-11) Est Creatinine Clear Calc Drug Dose 43.3 ml/min Estimated GFR () 78.3 Estimated GFR (Non- 67.6 BUN/Creatinine Ratio 31.0 (10-20) Calcium Level 8.8 mg/dl (8.5-10.1) Total Bilirubin 0.2 mg/dl (0.2-1) Aspartate Amino Transf (AST/SGOT) 10 U/L (15-37) Alanine Aminotransferase (ALT/SGPT) 13 U/L (12-78) Alkaline Phosphatase 147 U/L (45-117) Total Protein 7.2 gm/dl (6.4-8.2) Albumin 3.6 gm/dl (3.4-5.0) Globulin 3.6 gm/dl (2.5-4.0) Albumin/Globulin Ratio 1.0 (0.9-2) Laboratory results reviewed by me. Medications Administered Medications (Trade) Dose Ordered Sig/Daisy Route Start Time Stop Time Status Last Admin Dose Admin Ondansetron HCl (Zofran Odt) 4 mg NOW STAT PO 02/08/18 23:04 02/08/18 23:05 DC 02/08/18 23:07 4 MG ED Course 8: The patient was evaluated in room A04B. A complete history and physical exam was performed. 6: I discussed current lab findings and discussed the need for a CT. The patient is in agreement with a CT scan. 2244: I discussed the patient's case with Dr. Andrews, Urology. He states the patient can follow-up as an outpatient. 0: Reevaluated the patient. Discussed results and discharge instructions: she verbalized understanding and agreement. The patient is ready for discharge. 4: The patient's IV was removed and she started vomiting. She was given Zofran PO. Ordered Ondansetron HCl 4mg PO 2328: I reevaluated the patient. She is feeling better and is ready to be discharged. Medical Decision The patient is an 78 year old female who presents to the ED with complaints of worsening blood in her urine. Differential diagnoses considered include ureteral stone, kidney stone, UTI, coagulopathy, anemia, renal failure, renal mass, and bladder mass. There is no leukocytosis or concerning anemia. No significant electrolyte abnormality, kidney failure or hepatitis. There is no coagulopathy. Urinalysis does show hematuria, no obvious infection. Urine culture is pending. Abdominal and pelvis CT shows a right renal mass, likely cancerous. There was evidence for potential metastasis. The patient has no pain. I do believe the hematuria is from the renal mass noted on CT. I discussed the case with urology. The patient is being discharged with outpatient follow-up and workup. She was told to avoid all aspirin and ibuprofen. She should avoid NSAIDs and only use Tylenol. She was encouraged to return here for worsening symptoms, fever or pain. Upon discharge, the patient became nauseated and vomited. She was given oral Zofran. Her symptoms resolved. I suspect the vomiting was from the stress of the unsuspected diagnosis. Medication Reconcilliation Current Medication List: was personally reviewed by me Blood Pressure Screening Patient's blood pressure: Elevated blood pressure Blood pressure disposition: Referred to PCP Consults Time Called: 2240 Consulting Physician: Dr. Andrews, Urology Returned Call: [phone] I discussed the patient's case with Dr. Andrews, Urology. He states the patient can follow-up as an outpatient. Impression Primary Impression: Hematuria Additional Impression: Right renal mass Scribe Attestation The scribe's documentation has been prepared under my direction and personally reviewed by me in its entirety. I confirm that the note above accurately reflects all work, treatment, procedures, and medical decision making performed by me. Departure Information Dispostion Home / Self-Care Referrals Mac Owens MD (PCP) Forms HOME CARE DOCUMENTATION FORM, IMPORTANT VISIT INFORMATION Patient Instructions My [facility] Additional Instructions stay well hydrated no aspirin, motrin, aleve, advil or ibuprofen use tylenol for pain follow with your doctor sunday for referrals for the right kidney mass return for fever, vomiting, or pain Problem Qualifiers
--- NOTE | 2018-02-08 22:22 | DIAGNOSTIC IMAGING REPORT ---
CT SCAN OF THE ABDOMEN AND PELVIS COMBO CLINICAL HISTORY: Hematuria. COMPARISON STUDY: No priors. TECHNIQUE: Before and following the IV administration of 93 cc of Optiray 320, CT scan of the abdomen and pelvis is performed from the lung bases to the proximal femora. Images are reviewed in the axial, sagittal, and coronal planes. IV contrast was administered without complication. A dose lowering technique was utilized adhering to the principles of ALARA. CT DOSE: 500.89 mGy.cm FINDINGS: Lung bases: The heart is normal in size and without pericardial effusion. The lung bases are clear noting dependent atelectasis at the right lung base. There is a small hiatal hernia. Liver: The contrast-enhanced liver is mildly enlarged, measuring 18.3 cm in length. The liver is normal in contour and attenuation. There is no intrahepatic biliary ductal dilatation. The hepatic veins and portal veins are patent. Gallbladder: Surgically absent noting clips in the gallbladder fossa. Spleen: Normal in size and attenuation. Pancreas: Unremarkable. Adrenal glands: Unremarkable. Kidneys: No renal calculi are identified on the unenhanced series. The contrast enhanced kidneys images demonstrate cortical atrophy. There is no left-sided hydronephrosis. There is a large heterogeneous/essentially necrotic mass lesion arising from the upper pole the right kidney. This measures approximately 7.5 x 9 x 5.5 cm. This likely extends into the left renal pelvis. There is mild to moderate right hydronephrosis. Hyperdense material is present within the right proximal ureter and likely represents blood products. There is no definite involvement of the right renal vein. There is heterogeneously diminished perfusion of the right kidney as compared to left. Nonspecific right-sided perinephric stranding is observed. No enhancing mass lesion is identified in the left kidney. A 3.6 cm cyst arises from the interpolar left kidney. Numerous additional subcentimeter cortical hypodensities also likely represent cysts but are too small for definitive characterization. Abdominal vasculature: The abdominal aorta is normal in course and caliber noting moderate atherosclerotic calcification. Bowel: The small bowel and colon are normal in course and caliber. The appendix is not identified and reported surgically absent. Peritoneum: There is no intraperitoneal free air or abdominal ascites. Lymphadenopathy: A retrocaval lymph node on image #134 measures 2.0 x 2.2 cm. No additional retroperitoneal lymph nodes are identified. Pelvic viscera: Evaluation of the pelvis is degraded by streak artifact from a right hip arthroplasty. The bladder is partially decompressed and grossly unremarkable. The uterus is surgically absent. No adnexal lesion is seen. Skeletal structures: The skeletal structures are osteopenic. No lytic or blastic lesions are seen. A right hip arthroplasty is in place. IMPRESSION: 1. There is a 9 cm centrally necrotic mass lesion arising from the upper pole of the right kidney. This should be considered renal cell carcinoma until proven otherwise, and this likely invades the right renal collecting system. 2. There is mild to moderate right-sided hydronephrosis, and hyperdense material is present within the right proximal ureter. This likely represents blood clots causing obstruction. 3. There is heterogeneously diminished perfusion of the right kidney as well as right-sided perinephric stranding. 4. 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 5. No enhancing lesion is identified in the left kidney. 6. No renal calculi are identified. 7. Additional findings as above. Electronically signed by: Marcello Lynn M.D. 02/08/2018 10:21 PM Dictated Date/Time: 02/08/2018 10:08 PM
[2018-02-08 22:40] VITALS: BP 173/77; PULSE 63; O2SAT 95
[2018-02-08] MEDS ORDERED: ONDANSETRON 4MG OD TAB PO STA (23:04)
[2018-02-09] MEDS ORDERED: ACET-1256 PO (18:23)
[2018-02-11] MEDS ORDERED: MRLP17X PO (14:52)
[2018-02-11] MEDS ORDERED: TRAM-10 PO (14:52)
[2018-02-11] MEDS ORDERED: CLC100X PO (14:52)
[2018-02-15] MEDS ORDERED: DOCU100C31 PO (11:10)
[2018-02-15] MEDS ORDERED: POLY335019 PO (11:10)
[2018-02-15] MEDS ORDERED: TRAM-10 PO (11:10)
== END 2018-02-08 23:10 | disposition home or self-care (01) ==
LOC: C.EDB 20:35 → C.EDA 23:10
DX: N28.89 Other specified disorders of kidney and ureter (principal); Z90.49 Acquired absence of other specified parts of digestive tract; L40.9 Psoriasis, unspecified; M16.11 Unilateral primary osteoarthritis, right hip; Z90.710 Acquired absence of both cervix and uterus; Z80.9 Family history of malignant neoplasm, unspecified; Z83.3 Family history of diabetes mellitus; Z82.49 Family history of ischemic heart disease and other diseases of the circulatory system; F17.210 Nicotine dependence, cigarettes, uncomplicated; Z88.5 Allergy status to narcotic agent

== ENCOUNTER 2018-02-09 17:41 | Inpatient (IN) | payer OTHER ==
[~2018-02-09] VITALS: Ht 154.9 cm; Wt 58.8 kg
[~2018-02-09 17:41] MED LIST changes: -ACET-24 PO; -ASPEC325 PO; -FRRG PO; -ULT50X PO
[2018-02-09] MEDS ORDERED: FENTANYL CITRATE INJ 50 MCG/1 ML 2 ML VIAL IV STA (18:05)
[2018-02-09] MEDS ORDERED: ONDANSETRON INJ 2 MG/ML 2 ML VIAL IV STA (18:05)
[2018-02-09] MEDS ORDERED: SODIUM CHLORIDE 0.9% 1000ML 1,000 ML IV STA (18:05)
[2018-02-09] MEDS ORDERED: ACET-1256 PO (18:23)
[2018-02-09 18:29] LABS: HEMATOCRIT 36.5 % (37-47); MEAN CELL VOLUME 86.5 fL (80-100); MEAN CORPUSCULAR HEMOGLOBIN 28.4 pg (25-34); MEAN CORPUSCULAR HGB CONC 32.9 g/dl (32-36); MEAN PLATELET VOLUME 9.6 fL (7.4-10.4); PLATELET COUNT 353 K/uL (130-400); RED CELL DISTRIBUTION WIDTH CV 14.6 % (11.5-14.5); RED CELL DISTRIBUTION WIDTH SD 46.1 fL (36.4-46.3); WHITE BLOOD COUNT 12.12 K/uL (4.8-10.8)
--- NOTE | 2018-02-09 18:43 | EMERGENCY ROOM VISIT NOTE ---
History Report prepared by Sabas: Fozia Bassett Under the Supervision of: Dr. Pawan Lai M.D. First contact with patient: 17:55 Chief Complaint: VOMITING Stated Complaint: PAIN AND VOMITING Nursing Triage Summary: right flank/abdominal pain 08/21 with associated vomiting. History of Present Illness The patient is a 78 year old female who presents to the Emergency Room with complaints of constant abdominal pain beginning this morning. The patient was in the ED last night where she had a CT which was unremarkable besides a mass on her kidney. She reports she had three episodes of vomiting since she was in the ED last night. The patient reports she has been having blood in her urine since yesterday. She states the blood was in her urine lessened today. Presently , the patient has nausea. She denies any chest pain or shortness of breath. The patient states she has only been able to drink orange juice since yesterday. The patient is not on any blood thinners. Source of History: patient Onset: morning Position: abdomen Quality: other (pain) Timing: constant Associated Symptoms: + nausea, + vomiting, + abdominal pain, + urinary symptoms, No chest pain, No SOB Review of Systems See HPI for pertinent positives and negatives. A total of ten systems were reviewed and were otherwise negative. Past Medical & Surgical Medical Problems: (1) Cholecystectomy (2) Intractable abdominal pain (3) Psoriasis (4) Right Hip DJD (5) Vertigo Surgical Problems: (1) S/P appendectomy (2) S/P hysterectomy Family History Cancer Diabetes mellitus FHx: gallbladder disease FHx: lung disease Hypertension Social History Smoking Status: Current Some Day Smoker Alcohol Use: none Marital Status: Housing Status: lives alone Occupation Status: employed Current/Historical Medications Scheduled Acetaminophen (Tylenol), 1,000 MG PO UD Ibuprofen (Advil), 400 MG PO PRN UD Allergies Coded Allergies: Codeine (Verified Allergy, Unknown, NAUSEA AND VOMITING, 10/08/17) Physical Exam Vital Signs Date Time Temp Pulse Resp B/P (MAP) Pulse Ox O2 Delivery O2 Flow Rate FiO2 02/09/18 18:33 64 02/09/18 18:30 69 20 152/69 92 Room Air 02/09/18 17:44 36.9 69 18 171/81 94 Room Air Physical Exam GENERAL: Awake, alert, fatigued and uncomfortable-appearing, in no distress HENT: Normocephalic, atraumatic. Oropharynx unremarkable. Dry mucus membranes. EYES: Normal conjunctiva. Sclera non-icteric. NECK: Supple. No nuchal rigidity. FROM. No JVD. RESPIRATORY: Clear to auscultation. CARDIAC: Regular rate, normal rhythm. Extremities warm and well perfused. Pulses equal. ABDOMEN: Generalized abdominal tenderness, without peritoneal signs. Soft, non- distended. No tenderness to palpation. No rebound or guarding. No masses. RECTAL: Deferred. MUSCULOSKELETAL: Chest examination reveals no tenderness. The back is symmetrical on inspection without obvious abnormality. Mild right flank and CVA tenderness. No joint edema. LOWER EXTREMITIES: Calves are equal size bilaterally and non-tender. No edema. No discoloration. NEURO: Normal sensorium. No sensory or motor deficits noted. SKIN: No rash or jaundice noted. Medical Decision & Procedures ER Provider Diagnostic Interpretation: Radiology results as stated below per my review and radiologist interpretation: SINGLE VIEW CHEST FINDINGS: An AP, portable, upright chest radiograph is compared to study dated chest x-ray dated 09/10/2017.. The heart is top normal for projection and there is atherosclerotic calcification of the thoracic aorta. Chronic interstitial thickening is similar to previous. No airspace consolidation or large pleural effusion is identified. Mild apical scarring is observed. No pneumothorax is seen. The skeletal structures are osteopenic. The bony thorax is grossly intact. Degenerative change and scoliosis are noted in the thoracic spine. IMPRESSION: No acute cardiopulmonary abnormality. Electronically signed by: Marcello Lynn M.D. Laboratory Results 02/09/18 18:08 Red Blood Count 4.22, Mean Corpuscular Volume 86.5, Mean Corpuscular Hemoglobin 28.4, Mean Corpuscular Hemoglobin Concent 32.9, Mean Platelet Volume 9.6, Neutrophils (%) (Auto) 86.9, Lymphocytes (%) (Auto) 8.7, Monocytes (%) (Auto) 3.7, Eosinophils (%) (Auto) 0.3, Basophils (%) (Auto) 0.2, Neutrophils # (Auto) 10.51, Lymphocytes # (Auto) 1.06, Monocytes # (Auto) 0.45, Eosinophils # (Auto) 0.04, Basophils # (Auto) 0.03 02/09/18 18:08 Test 02/09/18 18:08 02/09/18 18:11 White Blood Count 12.12 K/uL (4.8-10.8) Red Blood Count 4.22 M/uL (4.2-5.4) Hemoglobin 12.0 g/dL (12.0-16.0) Hematocrit 36.5 % (37-47) Mean Corpuscular Volume 86.5 fL (80-100) Mean Corpuscular Hemoglobin 28.4 pg (25-34) Mean Corpuscular Hemoglobin Concent 32.9 g/dl (32-36) Platelet Count 353 K/uL (130-400) Mean Platelet Volume 9.6 fL (7.4-10.4) Neutrophils (%) (Auto) 86.9 % Lymphocytes (%) (Auto) 8.7 % Monocytes (%) (Auto) 3.7 % Eosinophils (%) (Auto) 0.3 % Basophils (%) (Auto) 0.2 % Neutrophils # (Auto) 10.51 K/uL (1.4-6.5) Lymphocytes # (Auto) 1.06 K/uL (1.2-3.4) Monocytes # (Auto) 0.45 K/uL (0.11-0.59) Eosinophils # (Auto) 0.04 K/uL (0-0.5) Basophils # (Auto) 0.03 K/uL (0-0.2) RDW Standard Deviation 46.1 fL (36.4-46.3) RDW Coefficient of Variation 14.6 % (11.5-14.5) Immature Granulocyte % (Auto) 0.2 % Immature Granulocyte # (Auto) 0.03 K/uL (0.00-0.02) Red Blood Cell Morphology Unremarkable Anion Gap 4.0 mmol/L (3-11) Est Creatinine Clear Calc Drug Dose 39.5 ml/min Estimated GFR () 67.3 Estimated GFR (Non- 58.0 BUN/Creatinine Ratio 23.1 (10-20) Calcium Level 8.4 mg/dl (8.5-10.1) Magnesium Level 2.0 mg/dl (1.8-2.4) Total Bilirubin 0.4 mg/dl (0.2-1) Direct Bilirubin 0.1 mg/dl (0-0.2) Aspartate Amino Transf (AST/SGOT) 13 U/L (15-37) Alanine Aminotransferase (ALT/SGPT) 13 U/L (12-78) Alkaline Phosphatase 138 U/L (45-117) Total Protein 7.0 gm/dl (6.4-8.2) Albumin 3.4 gm/dl (3.4-5.0) Lipase 108 U/L (73-393) Bedside Lactic Acid Venous 0.64 mmol/L (0.90-1.70) Laboratory results reviewed by me Medications Administered Medications (Trade) Dose Ordered Sig/Daisy Route Start Time Stop Time Status Last Admin Dose Admin Sodium Chloride 1,000 ml @ 999 mls/hr Q1H1M STAT IV 02/09/18 18:05 02/09/18 19:05 DC 02/09/18 18:23 999 MLS/HR Ondansetron HCl (Zofran Inj) 4 mg NOW STAT IV 02/09/18 18:05 02/09/18 18:08 DC 02/09/18 18:22 4 MG Fentanyl Citrate (Fentanyl Inj) 50 mcg NOW STAT IV 02/09/18 18:05 02/09/18 18:09 DC 02/09/18 18:22 50 MCG Morphine Sulfate (MoRPHine SULFATE INJ) 2 mg Q4 PRN IV 02/09/18 20:00 02/23/18 19:59 02/09/18 20:29 2 MG Sodium Chloride 1,000 ml @ 75 mls/hr [id number] IV 02/09/18 20:00 02/10/18 22:39 02/09/18 21:55 75 MLS/HR ECG Per My Interpretation Indication: abdominal pain Rate (beats per minute): 66 Rhythm: normal sinus Findings: no acute ischemic change, other (normal axis) ED Course 1801: The patient was evaluated in room A12B. A complete history and physical exam was performed. 1908: I discussed the patient with Dr. Ho - She will evaluate the patient for further treatment. Medical Decision I reviewed the patient's past medical history, medications, and the nursing notes as described above. Differential diagnosis: Etiologies such as appendicitis, diverticulitis, PUD, biliary pathology, UTI, pancreatitis, obstruction, mesenteric ischemia, aortic pathology, infections, inflammatory bowel disease, renal colic, as well as others were entertained. The patient is an 78-year-old woman who presents emergency department with persistent nausea vomiting and right flank and abdominal pain after being seen in the ED yesterday for hematuria and had CT scan that demonstrates likely renal cell carcinoma per hpi. Of note, patient was feeling improved last night as so was discharged with plan for outpatient f/u. Urology was consulted. On arrival the patient is uncomfortable and fatigued appearing but in no distress, afebrile stable vital signs. She has moderate tenderness the right flank and generalized abdominal pain. Labs unremarkable including WBC and lactate within normal limits. Given the patient's persistent symptoms in the setting of likely new diagnosis of renal cell carcinoma it is reasonable to admit the patient for symptom control and possible further evaluation of her renal mass. Case was discussed with Dr. Pippa Castillo, EMILY hospitalist, who will evaluate the patient for admission. Medication Reconcilliation Current Medication List: was personally reviewed by me Blood Pressure Screening Patient's blood pressure: Elevated blood pressure Blood pressure disposition: Elevated BP felt to be situational Consults Time Called: 1900 Consulting Physician: Dr. Ho Returned Call: 1908 I discussed the patient with Dr. Ho - She will evaluate the patient for further treatment. Impression Primary Impression: Hematuria Additional Impressions: Right flank pain Renal mass Scribe Attestation The scribe's documentation has been prepared under my direction and personally reviewed by me in its entirety. I confirm that the note above accurately reflects all work, treatment, procedures, and medical decision making performed by me. Departure Information Dispostion Being Evaluated By Hospitalist Referrals No Doctor, Assigned (PCP) Patient Instructions My [facility] Problem Qualifiers
[2018-02-09 18:50] LABS: BASO % 0.2 %; BASO ABS # 0.03 K/uL (0-0.2); EOS % 0.3 %; EOS ABS # 0.04 K/uL (0-0.5); IG# 0.03 K/uL (0.00-0.02); LYMPH % 8.7 %; LYMPH ABS # 1.06 K/uL (1.2-3.4); MONO % 3.7 %; MONO ABS # 0.45 K/uL (0.11-0.59); NEUT % 86.9 %; NEUT ABS # 10.51 K/uL (1.4-6.5)
[2018-02-09 18:52] LABS: ALBUMIN 3.4 gm/dl (3.4-5.0); CALCIUM 8.4 mg/dl (8.5-10.1); CREATININE 0.93 mg/dl (0.60-1.20); POTASSIUM 3.8 mmol/L (3.5-5.1)
[2018-02-09] MEDS ORDERED: POLYETHYLENE (MIRALAX) 17 GM PACK PO PRN (20:00)
[2018-02-09] MEDS ORDERED: ACETAMINOPHEN 325 MG TAB PO PRN (20:00)
--- NOTE | 2018-02-09 20:27 | History and Physical ---
History & Physical Date & Time of Service: Feb 09, 2018 at 20:02 Chief Complaint: Pain And Vomiting Primary Care Physician: Mac Owens MD History of Present Illness Source: patient Patient is a pleasant 78yo C female with no significant past medical history who was seen in the ER yesterday for painless hematuria with clots. She had a CT of the abdomen performed which revealed a 9cm necrotic mass on the right kidney suspicious for RCC. Patient was discharged home with antiemetics and instruction to followup with her PCP and Urology. She returns this evening with severe right sided bandlike flank pain x 1 day, 10/10 in severity. She took Tylenol at home with no relief. She is also experiencing nausea and 3 episodes of nonbloody nonbilious vomiting. She is having adequate UOP and states that the hematuria has improved from yesterday. She denies increased frequency/urgency or dysuria. No additional complaints at this time. ER Course: NSS x 1 L, Zofran 4mg IV, Fentanyl 50mg IV Past Medical/Surgical History Medical Problems: (1) Psoriasis (2) Hematuria (3) Intractable abdominal pain (4) Psoriasis (5) Right Hip DJD (6) Right renal mass (7) Vertigo Surgical Problems: (1) S/P appendectomy (2) S/P hysterectomy (3) S/P cholecystectomy Family History Cancer Diabetes mellitus FHx: gallbladder disease FHx: lung disease Hypertension Social History Smoking Status: Current Some Day Smoker Alcohol Use: none Drug Use: none Marital Status: Housing status: lives alone Occupational Status: employed Allergies Coded Allergies: Codeine (Verified Allergy, Unknown, NAUSEA AND VOMITING, 10/08/17) Home Medications Scheduled Acetaminophen (Tylenol), 1,000 MG PO UD Ibuprofen (Advil), 400 MG PO PRN UD Review of Systems Constitutional: + chills, No fever Respiratory: No cough, No sputum, No shortness of breath Cardiovascular: No chest pain, No palpitations Abdomen: + pain, + nausea, + vomiting, + constipation, No diarrhea, No GI bleeding Genitourinary - Female: + hematuria, No dysuria, No urinary frequency, No urinary urgency, No urinary incontinence, No urinary retention Physical Exam Vital Signs Date Time Temp Pulse Resp B/P (MAP) Pulse Ox O2 Delivery O2 Flow Rate FiO2 02/09/18 18:33 64 02/09/18 18:30 69 20 152/69 92 Room Air 02/09/18 17:44 36.9 69 18 171/81 94 Room Air General: patient resting comfortably in bed, NAD, AA&O Skin: warm, dry, intact, no rashes or lesions HEENT: NC/AT, PERRL, EOMI, anicteric sclera, conjunctiva without injection, neck supple, no JVD Heart: +S1/S2, regular, no m/r/g Lungs: equal air entry bilaterally, no rales/rhonchi/wheezes Abd: soft, normoactive bowel sounds, +tenderness in RUQ with voluntary guarding , +CVA tenderness on the right Ext: warm, well perfused, no edema, palpable pulses Neuro: grossly nonfocal Diagnostics Laboratory Results Results Past 24 Hours Test 02/09/18 18:08 02/09/18 18:11 Range/Units White Blood Count 12.12 4.8-10.8 K/uL Red Blood Count 4.22 4.2-5.4 M/uL Hemoglobin 12.0 12.0-16.0 g/dL Hematocrit 36.5 37-47 % Mean Corpuscular Volume 86.5 80-100 fL Mean Corpuscular Hemoglobin 28.4 25-34 pg Mean Corpuscular Hemoglobin Concent 32.9 32-36 g/dl Platelet Count 353 130-400 K/uL Mean Platelet Volume 9.6 7.4-10.4 fL Neutrophils (%) (Auto) 86.9 % Lymphocytes (%) (Auto) 8.7 % Monocytes (%) (Auto) 3.7 % Eosinophils (%) (Auto) 0.3 % Basophils (%) (Auto) 0.2 % Neutrophils # (Auto) 10.51 1.4-6.5 K/uL Lymphocytes # (Auto) 1.06 1.2-3.4 K/uL Monocytes # (Auto) 0.45 0.11-0.59 K/uL Eosinophils # (Auto) 0.04 0-0.5 K/uL Basophils # (Auto) 0.03 0-0.2 K/uL RDW Standard Deviation 46.1 36.4-46.3 fL RDW Coefficient of Variation 14.6 11.5-14.5 % Immature Granulocyte % (Auto) 0.2 % Immature Granulocyte # (Auto) 0.03 0.00-0.02 K/uL Red Blood Cell Morphology Unremarkable Sodium Level 135 136-145 mmol/L Potassium Level 3.8 3.5-5.1 mmol/L Chloride Level 105 98-107 mmol/L Carbon Dioxide Level 26 21-32 mmol/L Anion Gap 4.0 3-11 mmol/L Blood Urea Nitrogen 22 7-18 mg/dl Creatinine 0.93 0.60-1.20 mg/dl Est Creatinine Clear Calc Drug Dose 39.5 ml/min Estimated GFR () 67.3 Estimated GFR (Non- 58.0 BUN/Creatinine Ratio 23.1 10-20 Random Glucose 121 70-99 mg/dl Calcium Level 8.4 8.5-10.1 mg/dl Magnesium Level 2.0 1.8-2.4 mg/dl Total Bilirubin 0.4 0.2-1 mg/dl Direct Bilirubin 0.1 0-0.2 mg/dl Aspartate Amino Transf (AST/SGOT) 13 15-37 U/L Alanine Aminotransferase (ALT/SGPT) 13 12-78 U/L Alkaline Phosphatase 138 45-117 U/L Total Protein 7.0 6.4-8.2 gm/dl Albumin 3.4 3.4-5.0 gm/dl Lipase 108 73-393 U/L Bedside Lactic Acid Venous 0.64 0.90-1.70 mmol/L Diagnostic Radiology CT SCAN OF THE ABDOMEN AND PELVIS COMBO CLINICAL HISTORY: Hematuria. COMPARISON STUDY: No priors. TECHNIQUE: Before and following the IV administration of 93 cc of Optiray 320, CT scan of the abdomen and pelvis is performed from the lung bases to the proximal femora. Images are reviewed in the axial, sagittal, and coronal planes. IV contrast was administered without complication. A dose lowering technique was utilized adhering to the principles of ALARA. CT DOSE: 500.89 mGy.cm FINDINGS: Lung bases: The heart is normal in size and without pericardial effusion. The lung bases are clear noting dependent atelectasis at the right lung base. There is a small hiatal hernia. Liver: The contrast-enhanced liver is mildly enlarged, measuring 18.3 cm in length. The liver is normal in contour and attenuation. There is no intrahepatic biliary ductal dilatation. The hepatic veins and portal veins are patent. Gallbladder: Surgically absent noting clips in the gallbladder fossa. Spleen: Normal in size and attenuation. Pancreas: Unremarkable. Adrenal glands: Unremarkable. Kidneys: No renal calculi are identified on the unenhanced series. The contrast enhanced kidneys images demonstrate cortical atrophy. There is no left-sided hydronephrosis. There is a large heterogeneous/essentially necrotic mass lesion arising from the upper pole the right kidney. This measures approximately 7.5 x 9 x 5.5 cm. This likely extends into the left renal pelvis. There is mild to moderate right hydronephrosis. Hyperdense material is present within the right proximal ureter and likely represents blood products. There is no definite involvement of the right renal vein. There is heterogeneously diminished perfusion of the right kidney as compared to left. Nonspecific right-sided perinephric stranding is observed. No enhancing mass lesion is identified in the left kidney. A 3.6 cm cyst arises from the interpolar left kidney. Numerous additional subcentimeter cortical hypodensities also likely represent cysts but are too small for definitive characterization. Abdominal vasculature: The abdominal aorta is normal in course and caliber noting moderate atherosclerotic calcification. Bowel: The small bowel and colon are normal in course and caliber. The appendix is not identified and reported surgically absent. Peritoneum: There is no intraperitoneal free air or abdominal ascites. Lymphadenopathy: A retrocaval lymph node on image #134 measures 2.0 x 2.2 cm. No additional retroperitoneal lymph nodes are identified. Pelvic viscera: Evaluation of the pelvis is degraded by streak artifact from a right hip arthroplasty. The bladder is partially decompressed and grossly unremarkable. The uterus is surgically absent. No adnexal lesion is seen. Skeletal structures: The skeletal structures are osteopenic. No lytic or blastic lesions are seen. A right hip arthroplasty is in place. IMPRESSION: 1. There is a 9 cm centrally necrotic mass lesion arising from the upper pole of the right kidney. This should be considered renal cell carcinoma until proven otherwise, and this likely invades the right renal collecting system. 2. There is mild to moderate right-sided hydronephrosis, and hyperdense material is present within the right proximal ureter. This likely represents blood clots causing obstruction. 3. There is heterogeneously diminished perfusion of the right kidney as well as right-sided perinephric stranding. 4. 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 5. No enhancing lesion is identified in the left kidney. 6. No renal calculi are identified. 7. Additional findings as above. Impression Assessment and Plan 78yo C female with no significant past medical history recently found to have a necrotic right renal mass suspicious for RCC. She presents today with worsening pain abdominal, nausea and vomiting. 1. Abdominal pain - 10/10 constant pain at right flank. LFTs largely unremarkable, [id number]. Most likely secondary to underlying mass. -Pain control with Morphine 2mg IV q 4 hours PRN -Colace 100mg po BID PRN -Miralax PRN 2. Nausea - presently well controlled -Zofran ODT 4mg SL q 6 hours PRN 3. Renal mass - suspicious for RCC. Patient to follow up with Urology as an outpatient -Check UA with culture 4. F/E/N - NSS at 75mL/hr x 2 liters, monitor electrolytes and replete as needed, regular diet as tolerated 5. Ppx - CELE stockings to bilateral LE. Will avoid Lovenox due to hematuria 6. Code - Full per discussion with patient 7. Dispo - Observation to medical floor Resuscitation Status VTE Prophylaxis Will order VTE Prophylaxis: Yes
[2018-02-09] MEDS: MoRPHine SULFATE 2 MG/ML CARP IV PRN (20:29)
[2018-02-09] MEDS ORDERED: DOCUSATE SODIUM 100 MG CAP PO PRN (20:30)
[2018-02-09 20:45] VITALS: BP 162/70; PULSE 75; TEMP 37.2; O2SAT 93; Ht 154.9 cm; Wt 58.8 kg
[2018-02-09] MEDS: SODIUM CHLORIDE 0.9% 1000ML 1,000 ML IV SCH (21:55)
[2018-02-09 23:14] VITALS: BP 136/66; PULSE 71; TEMP 37.6; O2SAT 92
[2018-02-10] MEDS: MoRPHine SULFATE 2 MG/ML CARP IV PRN ×3 (06:20→23:17)
[2018-02-10 06:43] LABS: BASO % 0.3 %; BASO ABS # 0.03 K/uL (0-0.2); EOS % 0.1 %; EOS ABS # 0.01 K/uL (0-0.5); HEMATOCRIT 35.6 % (37-47); HEMOGLOBIN 11.5 g/dL (12.0-16.0); IG# 0.04 K/uL (0.00-0.02); LYMPH % 11.5 %; MEAN CELL VOLUME 86.4 fL (80-100); MEAN CORPUSCULAR HEMOGLOBIN 27.9 pg (25-34); MEAN CORPUSCULAR HGB CONC 32.3 g/dl (32-36); MEAN PLATELET VOLUME 9.8 fL (7.4-10.4); MONO % 6.9 %; MONO ABS # 0.78 K/uL (0.11-0.59); NEUT % 80.8 %; NEUT ABS # 9.15 K/uL (1.4-6.5); PLATELET COUNT 308 K/uL (130-400); RED CELL DISTRIBUTION WIDTH CV 14.8 % (11.5-14.5); RED CELL DISTRIBUTION WIDTH SD 46.9 fL (36.4-46.3); WHITE BLOOD COUNT 11.31 K/uL (4.8-10.8)
[2018-02-10 07:20] LABS: ALBUMIN 2.9 gm/dl (3.4-5.0); CALCIUM 7.9 mg/dl (8.5-10.1); CREATININE 0.91 mg/dl (0.60-1.20); POTASSIUM 3.8 mmol/L (3.5-5.1)
[2018-02-10 07:23] LABS: TOTAL PROTEIN 6.2 gm/dl (6.4-8.2)
[2018-02-10] MEDS ORDERED: PNEUMOCOCCAL ADMINISTRATION CHARGE ONE (08:00)
[2018-02-10] MEDS ORDERED: PNEUMOCOCCAL POLYSACCHARIDES 25 MCG/0.5 ML VIAL/SYR IM. ONE (08:00)
[2018-02-10 08:17] VITALS: BP 138/68; PULSE 68; TEMP 37; O2SAT 94
--- NOTE | 2018-02-10 10:04 | Progress Note ---
Subjective Date of Service: Feb 10, 2018. 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 Pain feels like pressure and distention of her right lower quadrant and radiates to the back. Patient reports morhine is helping. Patient states that patient continues to have hematuria, but is not passing clots. Patient also reports no BM since Sunday. Problem List Medical Problems: (1) Hematuria Status: Acute (2) Hematuria Status: Acute (3) Renal mass Status: Acute (4) Right flank pain Status: Acute (5) Right renal mass Status: Acute Review of Systems Constitutional: No fever, No chills Eyes: No worsening of vision ENT: No hearing loss Respiratory: No cough Cardiac: No chest pain Abdomen: + pain, + nausea Musculoskeletal: No joint pain Female : No dysuria Neurologic: No memory loss Psychiatric: No depression symptoms Heme: No abnormal bleeding/bruising All Other Systems: Reviewed and Negative Medications Current Inpatient Medications Medications (Trade) Dose Ordered Sig/Daisy Route Start Time Stop Time Status Last Admin Dose Admin Acetaminophen (Tylenol Tab) 650 mg Q4H PRN PO 02/09/18 20:00 03/11/18 19:59 Polyethylene (Miralax Powder Packet) 17 gm DAILY PRN PO 02/09/18 20:00 03/11/18 19:59 Ondansetron HCl (Zofran Odt) 4 mg Q6H PRN PO 02/09/18 20:00 03/11/18 19:59 Morphine Sulfate (MoRPHine SULFATE INJ) 2 mg Q4 PRN IV 02/09/18 20:00 02/23/18 19:59 02/10/18 06:20 2 MG Sodium Chloride 1,000 ml @ 75 mls/hr [id number] IV 02/09/18 20:00 02/10/18 22:39 02/09/18 21:55 75 MLS/HR Docusate Sodium (coLACE CAP) 100 mg BID PRN PO 02/09/18 20:30 03/11/18 20:29 02/10/18 09:04 100 MG Objective Vital Signs Date Time Temp Pulse Resp B/P (MAP) Pulse Ox O2 Delivery O2 Flow Rate FiO2 02/10/18 08:17 37.0 68 20 138/68 (91) 94 Room Air 02/10/18 00:01 Room Air 02/09/18 23:14 37.6 71 18 136/66 (89) 92 Room Air 02/09/18 20:45 37.2 75 18 162/70 93 Room Air 02/09/18 18:33 64 02/09/18 18:30 69 20 152/69 92 Room Air 02/09/18 17:44 36.9 69 18 171/81 94 Room Air Physical Exam General Appearance: WD/WN, no apparent distress Eyes: normal inspection ENT: normal ENT inspection Neck: supple, no adenopathy Respiratory/Chest: chest non-tender, lungs clear, normal breath sounds Cardiovascular: regular rate, rhythm, no edema Abdomen: normal bowel sounds, soft, + pertinent finding (no rebound no guarding , no distention. TTP on RLQ) Extremities: normal range of motion Neurologic/Psychiatric: alert, oriented x 3 Skin: normal color Lymphatic: no adenopathy Laboratory Results Last 24 Hours Test 02/09/18 18:08 02/09/18 18:11 02/09/18 23:01 02/10/18 06:07 White Blood Count 12.12 K/uL 11.31 K/uL Red Blood Count 4.22 M/uL 4.12 M/uL Hemoglobin 12.0 g/dL 11.5 g/dL Hematocrit 36.5 % 35.6 % Mean Corpuscular Volume 86.5 fL 86.4 fL Mean Corpuscular Hemoglobin 28.4 pg 27.9 pg Mean Corpuscular Hemoglobin Concent 32.9 g/dl 32.3 g/dl Platelet Count 353 K/uL 308 K/uL Mean Platelet Volume 9.6 fL 9.8 fL Neutrophils (%) (Auto) 86.9 % 80.8 % Lymphocytes (%) (Auto) 8.7 % 11.5 % Monocytes (%) (Auto) 3.7 % 6.9 % Eosinophils (%) (Auto) 0.3 % 0.1 % Basophils (%) (Auto) 0.2 % 0.3 % Neutrophils # (Auto) 10.51 K/uL 9.15 K/uL Lymphocytes # (Auto) 1.06 K/uL 1.30 K/uL Monocytes # (Auto) 0.45 K/uL 0.78 K/uL Eosinophils # (Auto) 0.04 K/uL 0.01 K/uL Basophils # (Auto) 0.03 K/uL 0.03 K/uL RDW Standard Deviation 46.1 fL 46.9 fL RDW Coefficient of Variation 14.6 % 14.8 % Immature Granulocyte % (Auto) 0.2 % 0.4 % Immature Granulocyte # (Auto) 0.03 K/uL 0.04 K/uL Red Blood Cell Morphology Unremarkable Sodium Level 135 mmol/L 138 mmol/L Potassium Level 3.8 mmol/L 3.8 mmol/L Chloride Level 105 mmol/L 105 mmol/L Carbon Dioxide Level 26 mmol/L 25 mmol/L Anion Gap 4.0 mmol/L 7.0 mmol/L Blood Urea Nitrogen 22 mg/dl 17 mg/dl Creatinine 0.93 mg/dl 0.91 mg/dl Est Creatinine Clear Calc Drug Dose 39.5 ml/min 40.6 ml/min Estimated GFR () 67.3 69.1 Estimated GFR (Non- 58.0 59.6 BUN/Creatinine Ratio 23.1 18.3 Random Glucose 121 mg/dl 100 mg/dl Calcium Level 8.4 mg/dl 7.9 mg/dl Magnesium Level 2.0 mg/dl Total Bilirubin 0.4 mg/dl 0.5 mg/dl Direct Bilirubin 0.1 mg/dl 0.1 mg/dl Aspartate Amino Transf (AST/SGOT) 13 U/L 15 U/L Alanine Aminotransferase (ALT/SGPT) 13 U/L 16 U/L Alkaline Phosphatase 138 U/L 122 U/L Total Protein 7.0 gm/dl 6.2 gm/dl Albumin 3.4 gm/dl 2.9 gm/dl Lipase 108 U/L Bedside Lactic Acid Venous 0.64 mmol/L Urine Color YELLOW Urine Appearance ERROR Urine pH 5.0 Urine Specific [place] 1.019 Urine Protein NEG Urine Glucose (UA) NEG Urine Ketones NEG Urine Occult Blood 3+ Urine Nitrite NEG Urine Bilirubin NEG Urine Urobilinogen NEG Urine Leukocyte Esterase NEG Urine WBC (Auto) 1-5 /hpf Urine RBC (Auto) 10-30 /hpf Urine Hyaline Casts (Auto) 0 /lpf Urine Epithelial Cells (Auto) 0-5 /lpf Urine Bacteria (Auto) NEG Assessment and Plan 78yo C female with no significant past medical history recently found to have a necrotic right renal mass suspicious for RCC. She presents today with worsening pain abdominal, nausea and vomiting. 1. Intractable Abdominal pain -Pain better controlled today. -WBC improved -Unsure of cause of pain. May be clots from tumor in ureter. May be from constipation -Patient though is not in acute abdomen. -D/W Urologist. No stents can be placed as these do not help with clots. -Patient will require R nephrectomy -This will likely be done laparoscopically -will like to have patient get a bowel movement and explained to her to try to decrease need of morphine. will also order KUB -Colace 100mg po BID PRN -Miralax PRN 2. Nausea - presently well controlled -Zofran ODT 4mg SL q 6 hours PRN 3. Renal mass - suspicious for RCC. Patient to follow up with Urology as an outpatient -Check UA with culture -hematuria 4. F/E/N - NSS at 75mL/hr x 2 liters, monitor electrolytes and replete as needed, regular diet as tolerated 5. Ppx - CEEL stockings to bilateral LE. Will avoid Lovenox due to hematuria 6. Code - Full per discussion with patient 7. Dispo - Observation to medical floor Continued [facility] stay due to: inadequate oral pain control Discharge planning: home
[2018-02-10] MEDS: SODIUM CHLORIDE 0.9% 1000ML 1,000 ML IV SCH (10:08)
--- NOTE | 2018-02-10 11:08 | DIAGNOSTIC IMAGING REPORT ---
KUB CLINICAL HISTORY: Generalized abdominal pain. Constipation. FINDINGS: 2 AP supine abdominal radiographs are correlated with abdominal CT dated 02/08/2018. There is a nonobstructed abdominal bowel gas pattern noting mild to moderate colonic fecal retention. No evidence of intraperitoneal free air is seen on these supine views. Cholecystectomy clips are noted in the right upper quadrant. Calcified phleboliths are observed in the pelvis. The skeletal structures are osteopenic. A right hip arthroplasty is in place. IMPRESSION: Nonobstructed abdominal bowel gas pattern noting mild to moderate colonic fecal retention. Electronically signed by: Marcello Lynn M.D. 02/10/2018 11:07 AM Dictated Date/Time: 02/10/2018 11:06 AM
--- NOTE | 2018-02-10 11:51 | Urology Consultation ---
History General Date of Service: Feb 10, 2018. Primary Care Physician: Mac Owens MD History of Present Illness Patient is an 78-year-old white female who came to the emergency room yesterday with hematuria. She had a urine culture done which was negative. She had a CT scan though which showed a 9 cm mass in the upper pole of the right kidney consistent with a renal cell carcinoma. She went home and then came back a day later with nausea vomiting and abdominal pain. Currently her complaints are mostly abdominal pain although she may have a little bit of flank pain. She is voiding okay although her urine is light pink. She has had no fevers or chills. Laboratory Last Vital Signs Documentation Date Time Temp Pulse Resp B/P (MAP) Pulse Ox O2 Delivery O2 Flow Rate FiO2 02/10/18 08:17 37.0 68 20 138/68 (91) 94 Room Air Last 24 Hours Test 02/09/18 18:08 02/09/18 18:11 02/09/18 23:01 02/10/18 06:07 White Blood Count 12.12 K/uL 11.31 K/uL Red Blood Count 4.22 M/uL 4.12 M/uL Hemoglobin 12.0 g/dL 11.5 g/dL Hematocrit 36.5 % 35.6 % Mean Corpuscular Volume 86.5 fL 86.4 fL Mean Corpuscular Hemoglobin 28.4 pg 27.9 pg Mean Corpuscular Hemoglobin Concent 32.9 g/dl 32.3 g/dl Platelet Count 353 K/uL 308 K/uL Mean Platelet Volume 9.6 fL 9.8 fL Neutrophils (%) (Auto) 86.9 % 80.8 % Lymphocytes (%) (Auto) 8.7 % 11.5 % Monocytes (%) (Auto) 3.7 % 6.9 % Eosinophils (%) (Auto) 0.3 % 0.1 % Basophils (%) (Auto) 0.2 % 0.3 % Neutrophils # (Auto) 10.51 K/uL 9.15 K/uL Lymphocytes # (Auto) 1.06 K/uL 1.30 K/uL Monocytes # (Auto) 0.45 K/uL 0.78 K/uL Eosinophils # (Auto) 0.04 K/uL 0.01 K/uL Basophils # (Auto) 0.03 K/uL 0.03 K/uL RDW Standard Deviation 46.1 fL 46.9 fL RDW Coefficient of Variation 14.6 % 14.8 % Immature Granulocyte % (Auto) 0.2 % 0.4 % Immature Granulocyte # (Auto) 0.03 K/uL 0.04 K/uL Red Blood Cell Morphology Unremarkable Sodium Level 135 mmol/L 138 mmol/L Potassium Level 3.8 mmol/L 3.8 mmol/L Chloride Level 105 mmol/L 105 mmol/L Carbon Dioxide Level 26 mmol/L 25 mmol/L Anion Gap 4.0 mmol/L 7.0 mmol/L Blood Urea Nitrogen 22 mg/dl 17 mg/dl Creatinine 0.93 mg/dl 0.91 mg/dl Est Creatinine Clear Calc Drug Dose 39.5 ml/min 40.6 ml/min Estimated GFR () 67.3 69.1 Estimated GFR (Non- 58.0 59.6 BUN/Creatinine Ratio 23.1 18.3 Random Glucose 121 mg/dl 100 mg/dl Calcium Level 8.4 mg/dl 7.9 mg/dl Magnesium Level 2.0 mg/dl Total Bilirubin 0.4 mg/dl 0.5 mg/dl Direct Bilirubin 0.1 mg/dl 0.1 mg/dl Aspartate Amino Transf (AST/SGOT) 13 U/L 15 U/L Alanine Aminotransferase (ALT/SGPT) 13 U/L 16 U/L Alkaline Phosphatase 138 U/L 122 U/L Total Protein 7.0 gm/dl 6.2 gm/dl Albumin 3.4 gm/dl 2.9 gm/dl Lipase 108 U/L Bedside Lactic Acid Venous 0.64 mmol/L Urine Color YELLOW Urine Appearance ERROR Urine pH 5.0 Urine Specific [place] 1.019 Urine Protein NEG Urine Glucose (UA) NEG Urine Ketones NEG Urine Occult Blood 3+ Urine Nitrite NEG Urine Bilirubin NEG Urine Urobilinogen NEG Urine Leukocyte Esterase NEG Urine WBC (Auto) 1-5 /hpf Urine RBC (Auto) 10-30 /hpf Urine Hyaline Casts (Auto) 0 /lpf Urine Epithelial Cells (Auto) 0-5 /lpf Urine Bacteria (Auto) NEG Labs were reviewed and are within normal limits unless listed below. Labs are available in the chart and at [facility] Problem List Medical Problems: (1) Hematuria Status: Acute (2) Hematuria Status: Acute (3) Renal mass Status: Acute (4) Right flank pain Status: Acute (5) Right renal mass Status: Acute Family History Cancer Diabetes mellitus FHx: gallbladder disease FHx: lung disease Hypertension Social History Hx Tobacco Use In Past Year?: Yes (SMOKES LESS THAN A PACK PER WEEK ) Marital status: Housing status: lives alone Occupation status: employed History of MDRO No Allergies Coded Allergies: Codeine (Verified Allergy, Unknown, NAUSEA AND VOMITING, 10/08/17) Medications Home Medications: Home Meds and Scripts Medications Dose Route/Sig Max Daily Dose Days Date Category Tylenol (Acetaminophen) 500 Mg Tab 1,000 Mg PO UD 02/09/18 Reported Advil (Ibuprofen) 200 Mg Tab 400 Mg PO PRN UD 05/03/13 Reported Inpatient Medications: Current Inpatient Medications Medications (Trade) Dose Ordered Sig/Daisy Route Start Time Stop Time Status Last Admin Dose Admin Acetaminophen (Tylenol Tab) 650 mg Q4H PRN PO 02/09/18 20:00 03/11/18 19:59 Polyethylene (Miralax Powder Packet) 17 gm DAILY PRN PO 02/09/18 20:00 03/11/18 19:59 Ondansetron HCl (Zofran Odt) 4 mg Q6H PRN PO 02/09/18 20:00 03/11/18 19:59 Morphine Sulfate (MoRPHine SULFATE INJ) 2 mg Q4 PRN IV 02/09/18 20:00 02/23/18 19:59 02/10/18 06:20 2 MG Sodium Chloride 1,000 ml @ 75 mls/hr [id number] IV 02/09/18 20:00 02/10/18 22:39 02/10/18 10:08 75 MLS/HR Docusate Sodium (coLACE CAP) 100 mg BID PRN PO 02/09/18 20:30 03/11/18 20:29 02/10/18 09:04 100 MG Review of Systems Review of Systems Additional Comments: Review of systems reviewed from her admitting history and physical and emergency room notes Physical Exam Vital Signs: Vital Signs Past 12 Hours Date Time Temp Pulse Resp B/P (MAP) Pulse Ox O2 Delivery O2 Flow Rate FiO2 02/10/18 08:17 37.0 68 20 138/68 (91) 94 Room Air 02/10/18 08:00 Room Air 02/10/18 00:01 Room Air Physical Exam: General Appearance: WD/WN, no apparent distress Eyes: bilateral eyes normal inspection ENT: hearing grossly normal Neck: supple, no adenopathy Respiratory/Chest: chest non-tender, lungs clear, normal breath sounds, no respiratory distress Cardiovascular: regular rate, rhythm Gastrointestinal: Abdomen: normal abdomen Assessment & Plan Assessment & Plan Assessment Hematuria with large right upper pole renal mass consistent with a renal cell carcinoma I reviewed the CT with the patient She will need a right nephrectomy I discussed the laparoscopic procedure with her In terms of the abdominal pain and wondering whether some of this may be GI related as she tells me she is developed a lot of bloating and gaseous feelings over the last day or 2 possibly from the pain medication she is getting
[2018-02-10] MEDS ORDERED: LACTULOSE SYRUP 30 GM/45 ML UDP PO STA (12:10)
[2018-02-10] MEDS: ONDANSETRON 4MG OD TAB PO PRN ×2 (12:40→21:54)
[2018-02-10 16:20] VITALS: BP 160/63; PULSE 68; TEMP 37.5; O2SAT 91
[2018-02-10 23:10] VITALS: BP 169/74; PULSE 73; TEMP 37.3; O2SAT 93
[2018-02-11] MEDS: MoRPHine SULFATE 2 MG/ML CARP IV PRN ×2 (04:07→08:08)
[2018-02-11 07:18] LABS: HEMOGLOBIN 11.1 g/dL (12.0-16.0); MEAN CELL VOLUME 85.4 fL (80-100); MEAN CORPUSCULAR HEMOGLOBIN 27.9 pg (25-34); MEAN CORPUSCULAR HGB CONC 32.6 g/dl (32-36); MEAN PLATELET VOLUME 9.5 fL (7.4-10.4); PLATELET COUNT 302 K/uL (130-400); RED CELL DISTRIBUTION WIDTH CV 14.7 % (11.5-14.5); RED CELL DISTRIBUTION WIDTH SD 45.8 fL (36.4-46.3); WHITE BLOOD COUNT 12.77 K/uL (4.8-10.8)
[2018-02-11 07:37] LABS: CALCIUM 8.3 mg/dl (8.5-10.1); CREATININE 0.77 mg/dl (0.60-1.20); POTASSIUM 3.8 mmol/L (3.5-5.1)
[2018-02-11 07:46] VITALS: BP 168/74; PULSE 63; TEMP 37; O2SAT 92
--- NOTE | 2018-02-11 10:10 | Progress Note ---
Subjective Date of Service: Feb 11, 2018. Subjective Pt evaluation today including: conversation w/ patient, chart review, lab review Voiding: no voiding problems 78 yo female with large right renal mass. Pt continues to have some hematuria. Urine in hat noted to be brownish with some clot. H&H stable. Pt c/o right flank pain this morning. Improved with pain medication. Denies n/v. Problem List Medical Problems: (1) Hematuria Status: Acute (2) Hematuria Status: Acute (3) Renal mass Status: Acute (4) Right flank pain Status: Acute (5) Right renal mass Status: Acute Review of Systems Constitutional: No fever, No chills Respiratory: No shortness of breath Cardiac: No chest pain Abdomen: + pain (right flank pain, RLQ ), No nausea, No vomiting Female : + hematuria Heme: + abnormal bleeding/bruising Objective Vital Signs Date Time Temp Pulse Resp B/P (MAP) Pulse Ox O2 Delivery O2 Flow Rate FiO2 02/11/18 08:00 Room Air 02/11/18 07:46 37.0 63 18 168/74 (105) 92 02/11/18 00:30 Room Air 02/10/18 23:10 37.3 73 18 169/74 (105) 93 Room Air 02/10/18 20:00 Room Air 02/10/18 16:20 37.5 68 18 160/63 (95) 91 02/10/18 16:00 Room Air Physical Exam General Appearance: no apparent distress Eyes: normal inspection ENT: hearing grossly normal Neck: no JVD Respiratory/Chest: no respiratory distress, no accessory muscle use Cardiovascular: no JVD Abdomen: + tenderness (RLQ and flank ) Extremities: normal inspection Neurologic/Psychiatric: alert, normal mood/affect, oriented x 3 Skin: normal color Laboratory Results Last 24 Hours Test 02/11/18 06:35 White Blood Count 12.77 K/uL Red Blood Count 3.98 M/uL Hemoglobin 11.1 g/dL Hematocrit 34.0 % Mean Corpuscular Volume 85.4 fL Mean Corpuscular Hemoglobin 27.9 pg Mean Corpuscular Hemoglobin Concent 32.6 g/dl RDW Standard Deviation 45.8 fL RDW Coefficient of Variation 14.7 % Platelet Count 302 K/uL Mean Platelet Volume 9.5 fL Sodium Level 135 mmol/L Potassium Level 3.8 mmol/L Chloride Level 101 mmol/L Carbon Dioxide Level 24 mmol/L Anion Gap 9.0 mmol/L Blood Urea Nitrogen 13 mg/dl Creatinine 0.77 mg/dl Est Creatinine Clear Calc Drug Dose 48.0 ml/min Estimated GFR () 84.5 Estimated GFR (Non- 72.9 BUN/Creatinine Ratio 17.2 Random Glucose 106 mg/dl Calcium Level 8.3 mg/dl Assessment and Plan A/P: Right renal mass, gross hematuria AFVSS. Plan for outpatient f/u with Dr. Turner this 02-13 at 3:20pm to discuss possible nephrectomy. Continue to monitor H&H and gross hematuria while inpatient. Pain management per primary service. Will continue to follow along with primary service. Continued [facility] stay due to: inadequate oral pain control Discharge planning: home
--- NOTE | 2018-02-11 13:59 | Hospitalist Progress Note ---
Hospitalist Progress Note Date of Service Feb 11, 2018. Subjective Pt evaluation today including: conversation w/ patient, physical exam, chart review, lab review, review of studies, review of inpatient medication list Pain: 8 -0-10 scale PO Intake: vivian PO with no increased abdominal pain Voiding: no voiding problems still with significant RUQ and right flank pain - morphine helps - moved bowels x 3 yesterday with no change in pain - no nausea/vomiting, Constitutional: No see HPI, No fever, No chills, No sweats, No weight loss, No weakness, No fatigue, No problem reported Respiratory: No see HPI, No cough, No sputum, No wheezing, No shortness of breath, No dyspnea on exertion, No dyspnea at rest, No hemoptysis, No problem reported Cardiovascular: No see HPI, No chest pain, No orthopnea, No PND, No edema, No claudication, No palpitations, No problem reported Abdomen: + pain Musculoskeletal: No see HPI, No joint pain, No muscle pain, No swelling, No calf pain, No problem reported Female : + hematuria Neurologic: No see HPI, No memory loss, No paralysis, No weakness, No numbness/tingling, No vertigo, No balance problems, No problem reported Heme: No see HPI, No abnormal bleeding/bruising, No clotting problems, No swollen lymph nodes, No night sweats, No problem reported Endo: No see HPI, No fatigue, No excessive thirst, No excessive urination, No problem reported Skin: No see HPI, No rash, No itch, No new/changing skin lesions, No color change, No bleeding, No problem reported All Other Systems: Reviewed and Negative Medications reviewed Objective Vital Signs Date Time Temp Pulse Resp B/P (MAP) Pulse Ox O2 Delivery O2 Flow Rate FiO2 02/11/18 07:46 37.0 63 18 168/74 (105) 92 02/11/18 00:30 Room Air 02/10/18 23:10 37.3 73 18 169/74 (105) 93 Room Air 02/10/18 20:00 Room Air 02/10/18 16:20 37.5 68 18 160/63 (95) 91 02/10/18 16:00 Room Air Physical Exam General Appearance: WD/WN, no apparent distress Eyes: normal inspection ENT: pharynx normal Neck: supple, no adenopathy Respiratory/Chest: chest non-tender, lungs clear, normal breath sounds Cardiovascular: regular rate, rhythm, no edema, no murmur Abdomen: normal bowel sounds, soft, + guarding, + tenderness (even light palpation to RUQ is painful) Extremities: normal range of motion, non-tender, normal inspection, no pedal edema, no calf tenderness Neurologic/Psychiatric: no motor/sensory deficits, alert, normal mood/affect, oriented x 3 Skin: normal color, warm/dry Notes: positive CVA tenderness on the right Laboratory Results Last 24 Hours Test 02/11/18 06:35 White Blood Count 12.77 K/uL Red Blood Count 3.98 M/uL Hemoglobin 11.1 g/dL Hematocrit 34.0 % Mean Corpuscular Volume 85.4 fL Mean Corpuscular Hemoglobin 27.9 pg Mean Corpuscular Hemoglobin Concent 32.6 g/dl RDW Standard Deviation 45.8 fL RDW Coefficient of Variation 14.7 % Platelet Count 302 K/uL Mean Platelet Volume 9.5 fL Sodium Level 135 mmol/L Potassium Level 3.8 mmol/L Chloride Level 101 mmol/L Carbon Dioxide Level 24 mmol/L Anion Gap 9.0 mmol/L Blood Urea Nitrogen 13 mg/dl Creatinine 0.77 mg/dl Est Creatinine Clear Calc Drug Dose 48.0 ml/min Estimated GFR () 84.5 Estimated GFR (Non- 72.9 BUN/Creatinine Ratio 17.2 Random Glucose 106 mg/dl Calcium Level 8.3 mg/dl Assessment and Plan 1. Intractable Abdominal pain - still unclear etiology - question right renal mass as source -Pain tolerable with IV Morphine -WBC once again elevated above 12 -Patient will require R nephrectomy per urology - not sure of timing -This will likely be done laparoscopically 2. constipation - moved bowels x 3 yesterday with no change in pain 3. Renal mass - suspicious for RCC. Urology following 4. DVT prophylaxis - CELE stockings to bilateral LE. Will avoid Lovenox due to hematuria 6. Dispo - Awaiting urology - still unclear source of abdominal pain Continued [facility] stay due to: inadequate oral pain control Discharge planning: uncertain
[2018-02-11] MEDS ORDERED: MRLP17X PO (14:52)
[2018-02-11] MEDS ORDERED: CLC100X PO (14:52)
[2018-02-11] MEDS ORDERED: TRAM-10 PO (14:52)
--- NOTE | 2018-02-11 14:56 | Discharge Instructions ---
Discharge Instructions Date of Service Feb 11, 2018. Admission Reason for Admission: Intractable Abdominal Pain Discharge Discharge Diagnosis / Problem: Right renal mass, constipation Discharge Goals Goal(s): Improve function, Specific goals (follow up with Dr. Turner) Activity Recommendations Activity Limitations: per Instructions/Follow-up section Driving or Machine Use: no driving while taking Ultram . Instructions / Follow-Up Instructions / Follow-Up Medications: - ULTRAM: 50mg every 4 hours as needed for pain control - COLACE: can take twice a day to soften stools, take with 8oz of water - MIRALAX: can take once a day for constipation, as needed Right renal mass, suspicious for renal cell carcinoma follow up with Dr. Turner on 02/13 at 3:20pm to discuss plan use Ultram for pain Constipation: stay well hydrated, stay active, use Benefiber daily can take Colace twice a day as needed Miralax twice a day as needed FOLLOW UP - Dr. Turner on 02/13 as above Current Hospital Diet Patient's current hospital diet: Regular Diet Discharge Diet Recommended Diet: Regular Diet Pending Studies Studies pending at discharge: no Medical Emergencies . Who to Call and When: Medical Emergencies: If at any time you feel your situation is an emergency, please call 911 immediately. . Non-Emergent Contact Non-Emergency issues call your: Primary Care Provider, Urologist Call Non-Emergent contact if: your pain is not controlled, your pain is worsening, you have any medication questions . . "Provider Documentation" section prepared by Michele Polk. . [place] Drug Monitoring Program Search Results: no issues identified
[2018-02-11 14:58] VITALS: BP 168/74; PULSE 63; TEMP 37; O2SAT 92
[2018-02-11 15:32] VITALS: BP 136/70; PULSE 70; TEMP 37.5; O2SAT 94
--- NOTE | 2018-02-12 08:44 | Discharge Summary ---
Discharge Summary Date of Service Feb 11, 2018. Discharge Summary Admission Date: Feb 10, 2018 at 09:57 Discharge Date: Feb 11, 2018 Discharge Disposition: Home Principal Diagnosis: Right sided abdominal pain Problems/Secondary Diagnoses: Right renal mass Constipation Procedures: none Consultations: Urology Medication Reconciliation New Medications: Tramadol (Ultram) 50 Mg Tab 50 MG PO Q4H PRN for Pain, #30 TAB Docusate Sodium (Docusate Sodium) 100 Mg Cap 100 MG PO BID PRN for Constipation, #60 CAP 1 Refill Polyethylene (Miralax) 17 Gm Pow 17 GM PO DAILY PRN for Constipation, #1 BTL 1 Refill Continued Medications: Acetaminophen (Tylenol) 500 Mg Tab 1000 MG PO UD Discontinued Medications: Ibuprofen (Advil) 200 Mg Tab 400 MG PO PRN UD Discharge Exam patient had several bowel movements on 02/11 with some relief of her abdominal pain. still with right flank pain, radiates to right groin. discussed that this was likely from the right renal mass. eating better. she wanted to go home, discussed importance of follow up with Dr. Turner on 02/13 in the afternoon to come up with plan for right renal mass Review of Systems: Constitutional: No fever, No chills, No sweats, No weight loss, No weakness , No fatigue, No problem reported Eyes: No worsening of vision, No eye pain, No redness, No discharge, No diplopia, No problem reported ENT: No hearing loss, No unusual epistaxis, No nasal symptoms, No sore throat, No tinnitus, No dental problems, No trouble swallowing, No problem reported Respiratory: No cough, No sputum, No wheezing, No shortness of breath, No dyspnea on exertion, No dyspnea at rest, No hemoptysis, No problem reported Cardiovascular: No chest pain, No orthopnea, No PND, No edema, No claudication, No palpitations, No problem reported Abdomen: + pain (right groin, right flank, improved), + constipation, No nausea, No vomiting, No diarrhea, No GI bleeding, No problem reported Musculoskeletal: No joint pain, No muscle pain, No swelling, No calf pain, No problem reported Genitourinary - Female: No dysuria, No urinary frequency, No urinary urgency , No urinary incontinence, No urinary retention, No hematuria Neurologic: No memory loss, No paralysis, No weakness, No numbness/tingling , No vertigo, No balance problems, No problem reported Psychiatric: No depression symptoms, No anhedonism, No anxiety, No insomnia , No substance abuse, No problem reported Endocrine: No fatigue, No excessive thirst, No excessive urination, No problem reported Hematologic / Lymphatic: No abnormal bleeding/bruising, No clotting problems , No swollen lymph nodes, No night sweats, No problem reported Integumentary: No rash, No itch, No new/changing skin lesions, No color change, No bleeding, No problem reported Physical Exam: General Appearance: WD/WN, no apparent distress Eyes: normal inspection, EOMI, sclerae normal ENT: normal ENT inspection, hearing grossly normal, pharynx normal Neck: supple, no adenopathy, no JVD, trachea midline Respiratory/Chest: chest non-tender, lungs clear, normal breath sounds, no respiratory distress, no accessory muscle use Cardiovascular: regular rate, rhythm, no edema, no gallop, no JVD, no murmur , normal peripheral pulses Abdomen / GI: normal bowel sounds, soft, no organomegaly, + tenderness ( mild tenderness in right lower quadrant, suprapubic area) Extremities: normal inspection, no calf tenderness, normal capillary refill , no pedal edema, normal range of motion, pelvis stable Neurologic/Psychiatric: shareholder II-XII nml as tested, no motor/sensory deficits , alert, normal mood/affect, normal reflexes, oriented x 3 Skin: normal color, warm/dry, no rash Hospital Course - Abdominal pain, initially intractable likely combination of referred pain from right renal mass complicated by constipation relief of pain after moving bowels but still having right flank pain, referred to right groin and suprapubic area prescribed Ultram PRN - Right renal mass suspicious for RCC will meet with Dr. Turner on 02/13 at 3:20 to discuss options, surgery etc - Constipation slow transit, possible complications of opioids will continue Colace and Miralax on discharge instructed on importance of adequate hydration, staying active, Benefiber Total Time Spent: Greater than 30 minutes This includes examination of the patient, discharge planning, medication reconciliation, and communication with other providers. Discharge Instructions Please refer to the electronic Patient Visit Report (Discharge Instructions) for additional information. Follow-Up Dr. Turner on 02/13 Additional Copies To Mac Owens MD; Juan Turner MD, Urology
[2018-02-15] MEDS ORDERED: POLY335019 PO (11:10)
[2018-02-15] MEDS ORDERED: DOCU100C31 PO (11:10)
[2018-02-15] MEDS ORDERED: TRAM-10 PO (11:10)
== END 2018-02-11 16:06 | disposition home or self-care (01) | DRG 688 ==
LOC: C.EDB 17:42 → C.MS2W 20:02 → ENRESERV 20:33 → OBSVTOIN 02-10 09:57
PROVIDERS: ADMIT Internal Medicine; ATTEND Internal Medicine
DX: C64.1 Malignant neoplasm of right kidney, except renal pelvis (principal); G89.3 Neoplasm related pain (acute) (chronic); K59.03 Drug induced constipation; T40.2X5A Adverse effect of other opioids, initial encounter; K59.01 Slow transit constipation; R31.9 Hematuria, unspecified; R11.0 Nausea; F17.200 Nicotine dependence, unspecified, uncomplicated; Z79.1 Long term (current) use of non-steroidal anti-inflammatories (NSAID); Z88.5 Allergy status to narcotic agent; Z83.3 Family history of diabetes mellitus; Z82.49 Family history of ischemic heart disease and other diseases of the circulatory system

== ENCOUNTER 2018-02-21 09:22 | Inpatient (IN) | payer OTHER ==
[2018-02-15 10:51] VITALS: BMI 24.0
[2018-02-21] VITALS (8 sets, daily range): BP systolic 131–178; BP diastolic 68–77; PULSE 53–75; TEMP 36.3–37; O2SAT 92–99; Ht 154.9 cm; Wt 58.2 kg
[~2018-02-21] VITALS: Ht 154.9 cm; Wt 58.2 kg
[~2018-02-21 09:22] MED LIST changes: +ACET-1256 PO; +ACETAMINOPHEN 1000 MG/100 ML IV IV SCH; +CEFAZOLIN 2000MG IV PUSH 15 ML IV SCH; +DOCU100C31 PO; +FENTANYL CITRATE INJ 50 MCG/1 ML 2 ML VIAL ONE; -IBUP-1050 PO; +LACTATED RINGER'S 1000ML 1,000 ML IV SCH; +MIDAZOLAM HCL 1 MG/ML 2ML VIAL ONE; +POLY335019 PO; +TRAM-10 PO
[2018-02-21] MEDS ORDERED: ATROPINE SULFATE 0.1 MG/ML 5ML SYR IV PRN (13:00)
[2018-02-21] MEDS ORDERED: EpHEDrine SULFATE INJ 50 MG/ML AMP IV PRN (13:00)
[2018-02-21] MEDS ORDERED: ONDANSETRON INJ 2 MG/ML 2 ML VIAL IV PRN (13:00)
[2018-02-21] MEDS ORDERED: PROMETHAZINE HCL INJ 6.25 MG in SODIUM CHLORIDE 0.9% 50ML 50 ML IV PRN (13:00)
[2018-02-21] MEDS ORDERED: HYDROmorphone INJ 1 MG/ML SYR IV PRN (13:00)
[2018-02-21] MEDS ORDERED: MANNITOL 25% 50 ML VIAL ONE (13:01)
[2018-02-21] MEDS ORDERED: BUPIVACAINE 0.5 % 5 MG/1 ML MPF 30ML VIAL ONE (13:01)
[2018-02-21] MEDS ORDERED: GELATIN SPONGE SZ 100 ONE (13:01)
[2018-02-21] MEDS ORDERED: ONDANSETRON INJ 2 MG/ML 2 ML VIAL ONE (15:44)
[2018-02-21] MEDS ORDERED: GLYCOPYRROLATE INJ 0.2 MG/ML VIAL ONE (15:44)
[2018-02-21] MEDS ORDERED: PROPOFOL IV EMULSION 10 MG/ML 20 ML VIAL IV ONE (15:44)
[2018-02-21] MEDS ORDERED: LIDOCAINE HCL 2% 2 ML VIAL (20MG/ML) ONE (15:44)
[2018-02-21] MEDS ORDERED: NEOSTIGMINE METHYLSULFATE 5 MG/5 ML SYR ONE (15:44)
[2018-02-21] MEDS ORDERED: DEXAMETHASONE SOD INJ 4 MG/ML VIAL ONE (15:44)
[2018-02-21] MEDS ORDERED: ROCURONIUM BROMIDE 10 MG/ML 5 ML VIAL IV ONE (15:44)
[2018-02-21] MEDS ORDERED: FENTANYL CITRATE INJ 50 MCG/1 ML 2 ML VIAL ONE (15:46)
[2018-02-21] MEDS ORDERED: SURGICEL ABSORB HEMOSTAT 2IN X 14IN TOP ONE (16:23)
[2018-02-21] MEDS ORDERED: FLOSEAL HEMOSTATIC MATRIX 5ML TOP ONE (16:24)
[2018-02-21] MEDS ORDERED: ACETAMINOPHEN IV 650 MG in EMPTY BAG 0 ML IV PRN (16:45)
[2018-02-21] MEDS ORDERED: OXYCODONE/ACETAMINOPHEN 7.5-325 TAB PO PRN (16:45)
[2018-02-21] MEDS ORDERED: BACITRACIN OINT 15 GM TUBE ONE (16:49)
--- NOTE | 2018-02-21 16:56 | [facility] Post Operative Brief Note ---
Immediate Operative Summary Operative Date Feb 21, 2018. Pre-Operative Diagnosis Right Kidney Mass Post-Operative Diagnosis Right Kidney Mass Retroperitoneal nodule Procedure(s) Performed Right Hand Assisted Laparoscopic Radical Nephrectomy with Resection of retroperitoneal Nodule Surgeon Dr. Juan Turner Senior [employer]ach[employer]ist Surgeon(s) Guerline Biswas PA-C Estimated Blood Loss 200 ml Findings Consistent with Post-Op Diagnosis Fluids (cc crystalloids) 1200 cc crystalloid Specimens A. Right Kidney B. Renal Hilar Nodule Drains Britt to gravity Anesthesia Type General Complication(s) none Disposition Accompanied Pt To Recover: yes Disposition: Recovery Room / PACU
--- NOTE | 2018-02-21 17:13 | [facility] Operative Report ---
Operative Report Operative Date Feb 21, 2018. Pre-Operative Diagnosis Right Kidney Mass Post-Operative Diagnosis Right Kidney Mass Retroperitoneal nodule Procedure(s) Performed Right Hand Assisted Laparoscopic Radical Nephrectomy with Resection of retroperitoneal Nodule Surgeon Dr. Juan Turner Die Baker Surgeon(s) Guerline Biswas PA-C Estimated Blood Loss 200 ml Findings Inflamed right kidney resected without residual tissue. Fatty hilar nodules removed, one with the kidney and one separately. Fluids 1200 cc crystalloid Specimens A. Right Kidney B. Renal Hilar Nodule Drains Britt to gravity Anesthesia Type General (With endotracheal intubation plus local) Complication(s) none Disposition yes Recovery Room / PACU Indications Patient is an 78-year-old female with a right renal mass discovered at the time of an acute bleed into her collecting system with clot colic a week and a half ago. She is here today for resection of her right renal mass as well as her suspected involved lymph node behind the hilum of the right kidney. Please see H&P for further details. Intravenous Ancef provided for antibiotic coverage and SCDs used for DVT prophylaxis. Description of Procedure Patient was properly identified and brought into the operative suite after identification for proper consent in the chart. General anesthesia with endotracheal intubation was initiated and patient was prepped and draped in the standard fashion for this procedure. Britt catheter was placed in a sterile fashion. Full timeout procedure was followed. All port sites were anesthetized with local prior to incision. Patient was placed in the right flank up flexed position with all pressure points generously padded. A Schmitt incision was made in the right lower quadrant and brought down through the subcutaneous tissues to the fascia of the external oblique. This was divided and abdomen was entered using Metzenbaum scissors with no evidence of any injury to the bowel. Initial dissection was carried out through the hand port including division of the white line of Toldt alongside the right colon and mobilization down to the psoas muscle with identification of the ureter. This was identified using a vessel loop. Seen the patient's small stature a significant portion of the dissection was able to be done through the hand port. A GelPort was placed and abdomen was insufflated to 15 mmHg. 2 ports were placed in the medial aspect of the clavicular line onto the surgeon's hand. Patient was noted to have quite a redundant liver covering the entirety of the kidney and after some further dissection a 5 mm port was placed in a substernal location to assist with liver retraction by the medical office assistant instructor. Retroperitoneal covering to the right kidney was divided allowing for medial mobilization of the kidney. Ureter was used for lateral traction on the kidney and the gonadal vessel was identified running into the inferior vena cava to assist with identification of anatomy. No evidence of any injury to the bowel throughout the case was appreciated. Duodenum was identified and kocherized medially. Using a vascular stapler the medial aspect of the kidney was divided up to and including the hilum. This was done with minimal residual tissue being present over the IVC again seen a paucity of intra-abdominal fat. After the hilum was controlled lateral aspects of the kidney were divided using harmonic scalpel. Kidney was noticed to diminish in size and firmness. The superior aspect of the kidney was circumscribed and dissection was carried down to the level of the adrenal gland with the IVC was followed presumably leaving adrenal tissue in proximity to the tumor on CT scan with the specimen. In the superior aspect of the renal hilum attached to Gerota's fascia a fatty nodule was noted to be protruding behind the IVC. This was soft and did not appear consistent with malignant lymph node involvement. This was kept with the specimen and small vessels were controlled using clips as necessary. After the final attachments of the specimen were divided using a stapler the ureter was clipped and divided and the specimen was removed from the abdomen and sent for pathologic analysis. Some stripping of the capsule of the liver was appreciated in this area was covered using Surgicel. Minimal bleeding was present in the renal fossa and over the liver. Hemostasis persisted on dropping intra-abdominal pressure. The hilum was carefully inspected and another fatty nodule was appreciated behind the level of the renal vein. Seen the possibility that this represented the structure identified on CT scan and despite a lack of induration this was carefully dissected free from its location posterior to the IVC using clips and harmonic scalpel judiciously for hemostasis. This was sent separately as a right renal hilar nodule on removal for pathologic analysis. After this was complete the surgical bed was carefully reinspected. Save for the vascular stumps, IVC spine and psoas no additional tissue was appreciated at the level of the dissection or in the hilar area. Resection was felt to be complete and adequate. FloSeal tissue sealant was placed in the adrenal bed, hilar area and over the liver. This was covered with Surgicel and liver was replaced in its anatomic location. Ports were removed and excess carbon dioxide gas was removed from the abdomen. Flexion was removed from the table. Hand port was closed in 2 layers using 0 Vicryl suture on the deep musculature and fascia of the abdomen and a #1 Vicryl on the fascia of the external oblique. Subcutaneous tissue was closed using 3- 0 Vicryl suture. 10 mm ports were closed at the fascial layer using an 0 Vicryl suture on a UR 6 needle. 4-0 Monocryl was used to close all the skin incisions as well as Dermabond. Anesthesia was reversed and patient was transferred to the recovery room in stable condition. CREW MESS ATTENDANT assisted throughout the case with camera, patient positioning, retraction, resection, passage of instruments and general patient safety. Follow-up care: Patient will be admitted to the floor for standard postoperative management. I attest to the content of the Intraoperative Record and any orders documented therein. Any exceptions are noted below.
[2018-02-21] MEDS: FENTANYL CITRATE INJ 50 MCG/1 ML 2 ML VIAL IV PRN ×2 (17:17→17:24)
[2018-02-21 17:20] LABS: MEAN CELL VOLUME 85.2 fL (80-100); MEAN CORPUSCULAR HEMOGLOBIN 27.6 pg (25-34); MEAN PLATELET VOLUME 8.6 fL (7.4-10.4); PLATELET COUNT 394 K/uL (130-400); RED CELL DISTRIBUTION WIDTH CV 14.7 % (11.5-14.5); RED CELL DISTRIBUTION WIDTH SD 46.2 fL (36.4-46.3); WHITE BLOOD COUNT 17.28 K/uL (4.8-10.8)
--- NOTE | 2018-02-21 17:34 | Anesthesiology Progress Note ---
Anesthesia Post Op Note Date & Time Feb 21, 2018 at 17:34 Vital Signs Pain Intensity: 4 Vital Signs Past 12 Hours Date Time Temp Pulse Resp B/P (MAP) Pulse Ox O2 Delivery O2 Flow Rate FiO2 02/21/18 17:20 60 13 165/45 97 Nasal Cannula 2 02/21/18 17:10 61 15 153/76 97 Nasal Cannula 2 02/21/18 17:02 36.4 71 18 171/57 99 Oxymask 10 02/21/18 09:55 37.0 75 16 131/70 92 Notes Mental Status: alert / awake / arousable, participated in evaluation Pt Amnestic to Procedure: Yes Nausea / Vomiting: adequately controlled Pain: adequately controlled Airway Patency, RR, SpO2: stable & adequate BP & HR: stable & adequate Hydration State: stable & adequate Anesthetic Complications: no major complications apparent
[2018-02-21 17:36] LABS: MEAN CORPUSCULAR HGB CONC 32.4 g/dl (32-36)
[2018-02-21 18:04] LABS: CALCIUM 8.3 mg/dl (8.5-10.1); CREATININE 0.87 mg/dl (0.60-1.20); POTASSIUM 4.4 mmol/L (3.5-5.1)
[2018-02-21] MEDS: LACTATED RINGER'S 1000ML 1,000 ML IV SCH (18:23)
[2018-02-21] MEDS: HYDROmorphone INJ 2 MG/ML SYR/VIAL IV PRN ×3 (19:08→23:56)
[2018-02-21] MEDS: DOCUSATE SODIUM 100 MG CAP PO SCH (20:35)
[2018-02-21] MEDS: CEFAZOLIN IV 1,000 MG in SYRINGE 0 ML IV SCH (21:30)
[2018-02-22] MEDS: LACTATED RINGER'S 1000ML 1,000 ML IV SCH ×2 (02:07→11:00)
[2018-02-22] MEDS: HYDROmorphone INJ 2 MG/ML SYR/VIAL IV PRN ×2 (02:46→08:53)
[2018-02-22 04:00] VITALS: BP 149/70; PULSE 57; TEMP 36.6; O2SAT 97
[2018-02-22] MEDS ORDERED: COUGH DROP (SUGAR FREE) LOZ 24 LOZ/1 BOX LOZ PRN (04:45)
[2018-02-22] MEDS: CEFAZOLIN IV 1,000 MG in SYRINGE 0 ML IV SCH ×2 (05:47→14:07)
[2018-02-22 05:56] VITALS: O2SAT 93
[2018-02-22 06:44] LABS: HEMATOCRIT 32.7 % (37-47); HEMOGLOBIN 10.6 g/dL (12.0-16.0); MEAN CELL VOLUME 85.8 fL (80-100); MEAN CORPUSCULAR HEMOGLOBIN 27.8 pg (25-34); MEAN CORPUSCULAR HGB CONC 32.4 g/dl (32-36); MEAN PLATELET VOLUME 9.1 fL (7.4-10.4); PLATELET COUNT 382 K/uL (130-400); RED CELL DISTRIBUTION WIDTH CV 14.6 % (11.5-14.5); RED CELL DISTRIBUTION WIDTH SD 45.5 fL (36.4-46.3); WHITE BLOOD COUNT 9.83 K/uL (4.8-10.8)
--- NOTE | 2018-02-22 06:47 | Clinical Documentation Query ---
CLINICAL DOCUMENTATION QUERY 78-y/o female who has undergone right nephrectomy. The medical record states right kidney mass, which codes to "other specified disorder of kidney." If clinically appropriate you think this mass may be a neoplasm/tumor please state such. In your clinical opinion is this patient being managed for: ( X ) Suspected right kidney tumor treated with nephrectomy. ( ) Not Agree ( ) Other explanation of clinical findings (Please Explain) ( ) Unable to determine (Please Define) ( ) Need to Discuss The medical record reflects the following clinical findings, treatment, and risk factors. Clinical Indicators: right renal mass Treatment: nephrectomy Risk Factors: Age Please clarify and document your clinical opinion in the progress notes and discharge summary. Terms such as "probable", "suspected", "likely", "questionable", "possible", or "still to be ruled out" are acceptable. IF IN AGREEMENT, YOU MUST DOCUMENT ABOVE DIAGNOSTIC STATEMENT IN DAILY PROGRESS NOTES AND DISCHARGE SUMMARY. This document is not part of the patient's record. Thank You, Prudencio Scherer RN [phone]
[2018-02-22 07:08] VITALS: BP_SYST 171; BP_SYST 175; BP_DIAS 60; BP_DIAS 68; PULSE 55; TEMP 36.6; O2SAT 94
[2018-02-22 07:16] LABS: CALCIUM 8.2 mg/dl (8.5-10.1); CREATININE 0.92 mg/dl (0.60-1.20); POTASSIUM 4.6 mmol/L (3.5-5.1)
[2018-02-22 07:17] LABS: BASO % 0.1 %; BASO ABS # 0.01 K/uL (0-0.2); IG# 0.03 K/uL (0.00-0.02); LYMPH % 14.3 %; LYMPH ABS # 1.41 K/uL (1.2-3.4); MONO % 7.1 %; NEUT % 78.2 %; NEUT ABS # 7.68 K/uL (1.4-6.5)
--- NOTE | 2018-02-22 07:56 | Progress Note ---
Subjective Date of Service: Feb 22, 2018. Subjective Pt evaluation today including: conversation w/ patient, chart review, lab review Voiding: zamudio catheter in place (patent, draining clear, yellow urine ) 78 yo female s/p right HALN. Pt reports some belching this morning. Slight nausea. Denies vomiting. Tolerating clear liquids. Denies flatus or BM. I&Os acceptable. H&H 10.6 and 32.7 this morning. Cr of 0.92. Problem List Medical Problems: (1) Hematuria Status: Acute (2) Hematuria Status: Acute (3) Renal mass Status: Acute (4) Right flank pain Status: Acute (5) Right renal mass Status: Acute Review of Systems Constitutional: No fever, No chills Respiratory: No shortness of breath Cardiac: No chest pain Abdomen: No pain, No nausea, No vomiting Female : No hematuria Heme: No abnormal bleeding/bruising Objective Vital Signs Date Time Temp Pulse Resp B/P (MAP) Pulse Ox O2 Delivery O2 Flow Rate FiO2 02/22/18 05:56 Room Air 02/22/18 05:56 93 Room Air 02/22/18 04:00 36.6 57 16 149/70 (96) 97 Nasal Cannula 2.0 02/21/18 23:49 Nasal Cannula 1.0 02/21/18 23:10 167/77 (107) 02/21/18 23:04 36.3 56 15 169/71 (103) 98 Nasal Cannula 2.0 02/21/18 21:27 36.4 66 16 141/68 (92) 97 Nasal Cannula 2.0 02/21/18 20:34 168/73 (104) 99 02/21/18 20:06 36.4 58 18 174/70 (104) 99 Nasal Cannula 2.0 02/21/18 18:59 53 18 178/69 (105) 99 Nasal Cannula 2.0 02/21/18 18:34 54 13 162/71 (101) 97 Nasal Cannula 2.0 02/21/18 18:06 Nasal Cannula 2.0 02/21/18 18:00 Nasal Cannula 2.0 02/21/18 17:40 36.2 65 10 158/68 98 Nasal Cannula 2 02/21/18 17:30 67 16 146/58 96 Nasal Cannula 2 02/21/18 17:20 60 13 165/45 97 Nasal Cannula 2 02/21/18 17:10 61 15 153/76 97 Nasal Cannula 2 02/21/18 17:02 36.4 71 18 171/57 99 Oxymask 10 02/21/18 09:55 37.0 75 16 131/70 92 Physical Exam General Appearance: no apparent distress, + thin Eyes: normal inspection ENT: hearing grossly normal Neck: no JVD Respiratory/Chest: no respiratory distress, no accessory muscle use Cardiovascular: no JVD Abdomen: + pertinent finding (abdominal incisions c/d/i) Extremities: normal inspection Neurologic/Psychiatric: alert, normal mood/affect, oriented x 3 Skin: normal color Laboratory Results Last 24 Hours Test 02/21/18 17:09 02/22/18 06:08 White Blood Count 17.28 K/uL 9.83 K/uL Red Blood Count 3.99 M/uL 3.81 M/uL Hemoglobin 11.0 g/dL 10.6 g/dL Hematocrit 34.0 % 32.7 % Mean Corpuscular Volume 85.2 fL 85.8 fL Mean Corpuscular Hemoglobin 27.6 pg 27.8 pg Mean Corpuscular Hemoglobin Concent 32.4 g/dl 32.4 g/dl RDW Standard Deviation 46.2 fL 45.5 fL RDW Coefficient of Variation 14.7 % 14.6 % Platelet Count 394 K/uL 382 K/uL Mean Platelet Volume 8.6 fL 9.1 fL Sodium Level 136 mmol/L 134 mmol/L Potassium Level 4.4 mmol/L 4.6 mmol/L Chloride Level 107 mmol/L 103 mmol/L Carbon Dioxide Level 25 mmol/L 27 mmol/L Anion Gap 4.0 mmol/L 4.0 mmol/L Blood Urea Nitrogen 20 mg/dl 21 mg/dl Creatinine 0.87 mg/dl 0.92 mg/dl Est Creatinine Clear Calc Drug Dose 42.3 ml/min 40.0 ml/min Estimated GFR () 72.9 68.2 Estimated GFR (Non- 62.9 58.8 BUN/Creatinine Ratio 23.2 23.0 Random Glucose 183 mg/dl 114 mg/dl Calcium Level 8.3 mg/dl 8.2 mg/dl Neutrophils (%) (Auto) 78.2 % Lymphocytes (%) (Auto) 14.3 % Monocytes (%) (Auto) 7.1 % Eosinophils (%) (Auto) 0.0 % Basophils (%) (Auto) 0.1 % Neutrophils # (Auto) 7.68 K/uL Lymphocytes # (Auto) 1.41 K/uL Monocytes # (Auto) 0.70 K/uL Eosinophils # (Auto) 0.00 K/uL Basophils # (Auto) 0.01 K/uL Immature Granulocyte % (Auto) 0.3 % Immature Granulocyte # (Auto) 0.03 K/uL Assessment and Plan POD #1 s/p right HALN. AFVSS. Pt clinically stable. Will advance to a mechanical soft diet today as tolerated. Encourage ambulation to hallway. Encourage use of IS. Trial of void this morning. Possible d/c home after lunch if tolerating PO, ambulating without difficulty, and pain controlled. Discharge planning: home
[2018-02-22] MEDS ORDERED: CLC100 PO (07:58)
[2018-02-22] MEDS ORDERED: OXYC7.5T62 PO (07:58)
--- NOTE | 2018-02-22 08:00 | Discharge Instructions ---
Discharge Instructions Date of Service Feb 22, 2018. Admission Reason for Admission: Right Renal Mass Discharge Discharge Diagnosis / Problem: Right renal mass Discharge Goals Goal(s): Decrease discomfort, Improve function, Increase independence, Improve disease control, Improve nutritional status, Therapeutic intervention Activity Recommendations Activity Limitations: as noted below Shower/Bathe: tomorrow 1. Do not lift >15lbs x 6 weeks. 2. No heavy exercise x 6 weeks. You may engage in light activity such as walking and stairs as tolerated. 3. Do not drive x [address] while taking narcotics. 4. Follow-up as scheduled. Please call our office at [phone] if you need to reschedule for any reason. 5. You may take tramadol or Endocet for pain control, but do not take both medications together. . . Current Hospital Diet Patient's current hospital diet: Regular Diet Discharge Diet Recommended Diet: Regular Diet Procedures Procedures Performed: Right Hand Assisted Laparoscopic Radical Nephrectomy with Resection of retroperitoneal Nodule Pending Studies Studies pending at discharge: yes List of pending studies: right kidney pathology Medical Emergencies . Who to Call and When: Medical Emergencies: If at any time you feel your situation is an emergency, please call 911 immediately. . Non-Emergent Contact Non-Emergency issues call your: Urologist Call Non-Emergent contact if: temperature is above 101.5, your pain is not controlled, your pain is worsening, your pain is unusual for you, your pain is concerning you, wound has increased drainage, wound has increased redness, wound has increased pain, you have any medication questions . . "Provider Documentation" section prepared by Guerline Biswas. . [place] Drug Monitoring Program Search Results: patient reviewed within database, no issues identified
[2018-02-22] MEDS: DOCUSATE SODIUM 100 MG CAP PO SCH ×2 (08:39→20:28)
[2018-02-22] MEDS: ONDANSETRON INJ 2 MG/ML 2 ML VIAL IV PRN (12:18)
[2018-02-22] MEDS: TRAMADOL HCL 50 MG TAB PO PRN ×2 (14:08→20:28)
[2018-02-22 14:58] VITALS: BP 176/72; PULSE 64; TEMP 37.6; O2SAT 90
[2018-02-22] MEDS ORDERED: NURSING VERBAL MED ORDER ONE (15:15)
[2018-02-22] MEDS: HEPARIN SOD 5000 UNIT/0.5 ML CARP SQ SCH (21:31)
[2018-02-22 23:03] VITALS: BP 160/74; PULSE 68; TEMP 37.2; O2SAT 88
[2018-02-22 23:04] VITALS: O2SAT 94
[2018-02-23] MEDS: TRAMADOL HCL 50 MG TAB PO PRN ×3 (02:30→17:50)
[2018-02-23 05:39] VITALS: BP 128/76; PULSE 70; O2SAT 89
[2018-02-23 06:39] LABS: BASO % 0.1 %; BASO ABS # 0.01 K/uL (0-0.2); EOS % 0.6 %; EOS ABS # 0.06 K/uL (0-0.5); HEMATOCRIT 32.2 % (37-47); HEMOGLOBIN 10.5 g/dL (12.0-16.0); IG# 0.03 K/uL (0.00-0.02); LYMPH % 15.6 %; LYMPH ABS # 1.61 K/uL (1.2-3.4); MEAN CELL VOLUME 85.2 fL (80-100); MEAN CORPUSCULAR HEMOGLOBIN 27.8 pg (25-34); MEAN CORPUSCULAR HGB CONC 32.6 g/dl (32-36); MEAN PLATELET VOLUME 8.8 fL (7.4-10.4); MONO ABS # 0.72 K/uL (0.11-0.59); NEUT % 76.4 %; PLATELET COUNT 335 K/uL (130-400); RED CELL DISTRIBUTION WIDTH SD 46.7 fL (36.4-46.3); WHITE BLOOD COUNT 10.33 K/uL (4.8-10.8)
[2018-02-23 07:04] VITALS: BP 154/72; PULSE 65; TEMP 36.9; O2SAT 97
[2018-02-23 07:08] LABS: CALCIUM 8.5 mg/dl (8.5-10.1); CREATININE 0.89 mg/dl (0.60-1.20); POTASSIUM 4.2 mmol/L (3.5-5.1)
[2018-02-23] MEDS: DOCUSATE SODIUM 100 MG CAP PO SCH ×2 (09:10→20:43)
[2018-02-23] MEDS: HEPARIN SOD 5000 UNIT/0.5 ML CARP SQ SCH ×2 (09:14→20:46)
--- NOTE | 2018-02-23 09:21 | Progress Note ---
Subjective Date of Service: Feb 23, 2018. Subjective Pt evaluation today including: conversation w/ patient, physical exam, chart review, lab review Voiding: no voiding problems Postop day #2 status post right hand-assisted laparoscopic radical nephrectomy Progressing appropriately Tolerating diet ambulating in the room Pain relatively well controlled on tramadol No bowel function yet Still reports significant belching and hiccuping Problem List Medical Problems: (1) Hematuria Status: Acute (2) Hematuria Status: Acute (3) Renal mass Status: Acute (4) Right flank pain Status: Acute (5) Right renal mass Status: Acute Review of Systems Constitutional: No see HPI, No fever, No chills, No sweats, No weight loss, No weakness, No fatigue, No problem reported Respiratory: No see HPI, No cough, No sputum, No wheezing, No shortness of breath, No dyspnea on exertion, No dyspnea at rest, No hemoptysis, No problem reported Abdomen: + pain (Appropriate postsurgical) Musculoskeletal: No see HPI, No joint pain, No muscle pain, No swelling, No calf pain, No problem reported Female : No see HPI, No dysuria, No urinary frequency, No hematuria, No incontinence, No abnormal vaginal bleeding, No vaginal discharge, No problem reported Neurologic: No see HPI, No memory loss, No paralysis, No weakness, No numbness/ tingling, No vertigo, No balance problems, No problem reported Endo: No see HPI, No fatigue, No excessive thirst, No excessive urination, No problem reported Objective Vital Signs Date Time Temp Pulse Resp B/P (MAP) Pulse Ox O2 Delivery O2 Flow Rate FiO2 02/23/18 07:25 Room Air 02/23/18 07:04 36.9 65 16 154/72 (99) 97 Room Air 02/23/18 05:39 70 128/76 (93) 89 Room Air 02/22/18 23:31 Nasal Cannula 2.0 02/22/18 23:04 94 Nasal Cannula 2.0 02/22/18 23:03 37.2 68 16 160/74 (102) 88 Room Air 02/22/18 15:20 Room Air 02/22/18 14:58 37.6 64 16 176/72 (106) 90 Room Air Physical Exam General Appearance: no apparent distress Eyes: normal inspection ENT: hearing grossly normal Neck: no adenopathy Respiratory/Chest: no respiratory distress, no accessory muscle use Cardiovascular: regular rate, rhythm, no edema Abdomen: soft (Incisions healing appropriately, no evidence of infection) Extremities: non-tender Neurologic/Psychiatric: alert, normal mood/affect, oriented x 3 Skin: warm/dry Laboratory Results Last 24 Hours Test 02/22/18 20:04 02/23/18 06:22 Prothrombin Time 10.2 SECONDS Prothromb Time International Ratio 1.0 White Blood Count 10.33 K/uL Red Blood Count 3.78 M/uL Hemoglobin 10.5 g/dL Hematocrit 32.2 % Mean Corpuscular Volume 85.2 fL Mean Corpuscular Hemoglobin 27.8 pg Mean Corpuscular Hemoglobin Concent 32.6 g/dl Platelet Count 335 K/uL Mean Platelet Volume 8.8 fL Neutrophils (%) (Auto) 76.4 % Lymphocytes (%) (Auto) 15.6 % Monocytes (%) (Auto) 7.0 % Eosinophils (%) (Auto) 0.6 % Basophils (%) (Auto) 0.1 % Neutrophils # (Auto) 7.90 K/uL Lymphocytes # (Auto) 1.61 K/uL Monocytes # (Auto) 0.72 K/uL Eosinophils # (Auto) 0.06 K/uL Basophils # (Auto) 0.01 K/uL RDW Standard Deviation 46.7 fL RDW Coefficient of Variation 15.0 % Immature Granulocyte % (Auto) 0.3 % Immature Granulocyte # (Auto) 0.03 K/uL Sodium Level 135 mmol/L Potassium Level 4.2 mmol/L Chloride Level 101 mmol/L Carbon Dioxide Level 30 mmol/L Anion Gap 4.0 mmol/L Blood Urea Nitrogen 15 mg/dl Creatinine 0.89 mg/dl Est Creatinine Clear Calc Drug Dose 41.3 ml/min Estimated GFR () 70.9 Estimated GFR (Non- 61.2 BUN/Creatinine Ratio 16.3 Random Glucose 98 mg/dl Calcium Level 8.5 mg/dl Assessment and Plan Postoperative day #2 status post right hand-assisted laparoscopic radical nephrectomy Progressing appropriately, however she does not feel that she is ready for discharge home She has been advanced to full diet I have encouraged her to ambulate in the hallways today Laboratory examinations all appropriate -stable renal function, stable hematocrit Presuming good progression today, discharge home tomorrow Discharge planning: home
[2018-02-23] MEDS: ONDANSETRON INJ 2 MG/ML 2 ML VIAL IV PRN (12:48)
[2018-02-23 15:08] VITALS: BP 135/70; PULSE 79; TEMP 37.2; O2SAT 92
[2018-02-23 16:00] VITALS: O2SAT 92
[2018-02-23 23:09] VITALS: BP 154/70; PULSE 72; TEMP 37.2; O2SAT 80; O2SAT 92
[2018-02-24] MEDS: TRAMADOL HCL 50 MG TAB PO PRN ×3 (04:04→14:30)
[2018-02-24 06:10] LABS: BASO % 0.2 %; BASO ABS # 0.02 K/uL (0-0.2); EOS % 2.1 %; EOS ABS # 0.22 K/uL (0-0.5); HEMATOCRIT 33.4 % (37-47); HEMOGLOBIN 10.4 g/dL (12.0-16.0); IG# 0.04 K/uL (0.00-0.02); LYMPH % 16.3 %; MEAN CORPUSCULAR HEMOGLOBIN 27.1 pg (25-34); MEAN CORPUSCULAR HGB CONC 31.1 g/dl (32-36); MEAN PLATELET VOLUME 9.3 fL (7.4-10.4); MONO ABS # 0.62 K/uL (0.11-0.59); NEUT ABS # 7.82 K/uL (1.4-6.5); PLATELET COUNT 359 K/uL (130-400); RED CELL DISTRIBUTION WIDTH SD 47.6 fL (36.4-46.3); WHITE BLOOD COUNT 10.42 K/uL (4.8-10.8)
[2018-02-24 06:31] LABS: CALCIUM 8.8 mg/dl (8.5-10.1); CREATININE 0.83 mg/dl (0.60-1.20); POTASSIUM 4.2 mmol/L (3.5-5.1)
[2018-02-24 06:57] VITALS: BP 136/81; PULSE 66; TEMP 36.7; O2SAT 94
[2018-02-24] MEDS: DOCUSATE SODIUM 100 MG CAP PO SCH (08:38)
[2018-02-24] MEDS: HEPARIN SOD 5000 UNIT/0.5 ML CARP SQ SCH (08:41)
[2018-02-24] MEDS ORDERED: TRAM-10 PO (09:09)
--- NOTE | 2018-02-24 09:36 | Progress Note ---
Subjective Date of Service: Feb 24, 2018. Subjective Pt evaluation today including: conversation w/ patient, physical exam, chart review, lab review Voiding: no voiding problems Subjectively improved overnight, no nausea, no vomiting No belching, no hiccups Tolerating a diet Ambulating Pain present, but well controlled with tramadol Problem List Medical Problems: (1) Hematuria Status: Acute (2) Hematuria Status: Acute (3) Renal mass Status: Acute (4) Right flank pain Status: Acute (5) Right renal mass Status: Acute Review of Systems Constitutional: No see HPI, No fever, No chills, No sweats, No weight loss, No weakness, No fatigue, No problem reported Female : No see HPI, No dysuria, No urinary frequency, No hematuria, No incontinence, No abnormal vaginal bleeding, No vaginal discharge, No problem reported Objective Vital Signs Date Time Temp Pulse Resp B/P (MAP) Pulse Ox O2 Delivery O2 Flow Rate FiO2 02/24/18 06:57 36.7 66 16 136/81 (99) 94 Nasal Cannula 2.0 02/23/18 23:56 Nasal Cannula 2.0 02/23/18 23:09 92 Nasal Cannula 2.0 02/23/18 23:09 37.2 72 14 154/70 (98) 80 Room Air 02/23/18 16:00 92 Nasal Cannula 1.0 02/23/18 15:08 37.2 79 14 135/70 (91) 92 Room Air Physical Exam General Appearance: no apparent distress ENT: hearing grossly normal Abdomen: soft (Incisions appropriate, no evidence of infection/hematoma, appropriately tender) Laboratory Results Last 24 Hours Test 02/24/18 05:40 White Blood Count 10.42 K/uL Red Blood Count 3.84 M/uL Hemoglobin 10.4 g/dL Hematocrit 33.4 % Mean Corpuscular Volume 87.0 fL Mean Corpuscular Hemoglobin 27.1 pg Mean Corpuscular Hemoglobin Concent 31.1 g/dl Platelet Count 359 K/uL Mean Platelet Volume 9.3 fL Neutrophils (%) (Auto) 75.0 % Lymphocytes (%) (Auto) 16.3 % Monocytes (%) (Auto) 6.0 % Eosinophils (%) (Auto) 2.1 % Basophils (%) (Auto) 0.2 % Neutrophils # (Auto) 7.82 K/uL Lymphocytes # (Auto) 1.70 K/uL Monocytes # (Auto) 0.62 K/uL Eosinophils # (Auto) 0.22 K/uL Basophils # (Auto) 0.02 K/uL RDW Standard Deviation 47.6 fL RDW Coefficient of Variation 15.0 % Immature Granulocyte % (Auto) 0.4 % Immature Granulocyte # (Auto) 0.04 K/uL Sodium Level 134 mmol/L Potassium Level 4.2 mmol/L Chloride Level 101 mmol/L Carbon Dioxide Level 30 mmol/L Anion Gap 3.0 mmol/L Blood Urea Nitrogen 15 mg/dl Creatinine 0.83 mg/dl Est Creatinine Clear Calc Drug Dose 44.3 ml/min Estimated GFR () 77.2 Estimated GFR (Non- 66.6 BUN/Creatinine Ratio 17.6 Random Glucose 110 mg/dl Calcium Level 8.8 mg/dl Assessment and Plan Postoperative day #3 status post right hand-assisted laparoscopic radical nephrectomy Progressed well overnight, feels ready for discharge today Labs stable DC home Discharge planning: home
[2018-02-24 10:42] VITALS: BP 136/81; PULSE 66; TEMP 36.7; O2SAT 94
--- NOTE | 2018-03-12 12:51 | Discharge Summary ---
Discharge Summary Date of Service March 12, 2018. Admission Date/Reason Feb 21, 2018 at 13:00 Right Renal Mass. Discharge Date/Disposition Feb 22, 2018 Home Diagnosis Principal Diagnosis: Right renal cell carcinoma Procedure(s) Performed Right hand-assisted laparoscopic nephrectomy Consultations None Medication Reconciliation See list Admission Physical Exam As per Admitting History & Physical. Hospital Course Patient was admitted after uncomplicated right-sided hand-assisted laparoscopic nephrectomy. Diet and activity were advanced with some sluggish GI function being noted. By postoperative day #3 patient was ambulatory in the hallways, tolerating a regular diet and comfortable on oral medication. She was stable for discharge home at this time. Please see progress notes for further details. Discharge Instructions Please refer to the electronic Patient Visit Report (Discharge Instructions) for additional information.
== END 2018-02-24 15:35 | disposition home or self-care (01) | DRG 658 ==
LOC: C.ACU 09:22 → C.MSW 13:00 → ENRESERV 17:32
PROVIDERS: ADMIT Urology; ATTEND Urology
PROC: 0TT00ZZ Resection of Right Kidney, Open Approach (ICD-10-PCS; principal; 2018-02-21 11:30)
PROC: 07BH0ZX Excision of Right Inguinal Lymphatic, Open Approach, Diagnostic (ICD-10-PCS; principal; 2018-02-21 11:30)
PROC: 0JBB0ZX Excision of Perineum Subcutaneous Tissue and Fascia, Open Approach, Diagnostic (ICD-10-PCS; principal; 2018-02-21 11:30)
DX: C64.1 Malignant neoplasm of right kidney, except renal pelvis (principal); R22.2 Localized swelling, mass and lump, trunk; R31.0 Gross hematuria; Z90.49 Acquired absence of other specified parts of digestive tract; Z90.710 Acquired absence of both cervix and uterus; Z87.891 Personal history of nicotine dependence; Z83.3 Family history of diabetes mellitus; Z82.49 Family history of ischemic heart disease and other diseases of the circulatory system; Z80.1 Family history of malignant neoplasm of trachea, bronchus and lung

== ENCOUNTER 2018-03-04 19:14 | Emergency (ER) | payer OTHER ==
[~2018-03-04] VITALS: Ht 154.9 cm; Wt 58.0 kg
[~2018-03-04 19:14] MED LIST changes: -ACETAMINOPHEN 1000 MG/100 ML IV IV SCH; -CEFAZOLIN 2000MG IV PUSH 15 ML IV SCH; +CLC100 PO; -FENTANYL CITRATE INJ 50 MCG/1 ML 2 ML VIAL ONE; -LACTATED RINGER'S 1000ML 1,000 ML IV SCH; -MIDAZOLAM HCL 1 MG/ML 2ML VIAL ONE
[2018-03-04 19:21] VITALS: TEMP 36.9; Ht 154.9 cm; Wt 58.0 kg
[2018-03-04] MEDS ORDERED: SODIUM CHLORIDE 0.9% 1000ML 1,000 ML IV STA (19:27)
[2018-03-04] MEDS ORDERED: ONDANSETRON INJ 2 MG/ML 2 ML VIAL IV STA (19:34)
[2018-03-04] MEDS ORDERED: OPTIRAY 320 IV PRN (19:45)
--- NOTE | 2018-03-04 19:56 | DIAGNOSTIC IMAGING REPORT ---
CHEST ONE VIEW PORTABLE HISTORY: Generalized abdominal pain. COMPARISON: None. FINDINGS: Right basilar densities. The left lung is clear. The heart is normal in size. No pleural effusions. No pneumothorax. IMPRESSION: Interval development of right basilar densities which may represent atelectasis or pneumonia. This will be better assessed on the same day abdomen and pelvis CT Electronically signed by: Damion Doan M.D. 03/04/2018 7:55 PM Dictated Date/Time: 03/04/2018 7:49 PM
[2018-03-04] MEDS: HYDROmorphone INJ 0.5 MG/0.5 ML SYR IV PRN ×2 (20:08→21:43)
[2018-03-04 20:21] LABS: BASO % 0.4 %; BASO ABS # 0.04 K/uL (0-0.2); EOS % 3.3 %; EOS ABS # 0.31 K/uL (0-0.5); HEMATOCRIT 36.7 % (37-47); HEMOGLOBIN 12.1 g/dL (12.0-16.0); IG# 0.05 K/uL (0.00-0.02); LYMPH % 22.4 %; LYMPH ABS # 2.07 K/uL (1.2-3.4); MEAN CELL VOLUME 84.8 fL (80-100); MEAN CORPUSCULAR HEMOGLOBIN 27.9 pg (25-34); MEAN PLATELET VOLUME 8.9 fL (7.4-10.4); MONO % 5.8 %; MONO ABS # 0.54 K/uL (0.11-0.59); NEUT % 67.6 %; NEUT ABS # 6.25 K/uL (1.4-6.5); PLATELET COUNT 544 K/uL (130-400); RED CELL DISTRIBUTION WIDTH CV 14.8 % (11.5-14.5); RED CELL DISTRIBUTION WIDTH SD 45.8 fL (36.4-46.3); WHITE BLOOD COUNT 9.26 K/uL (4.8-10.8)
[2018-03-04 20:40] LABS: ALBUMIN 3.3 gm/dl (3.4-5.0); ALT/SGPT 24 U/L (12-78); AST/SGOT 11 U/L (15-37); BLOOD UREA NITROGEN 35 mg/dl (7-18); CALCIUM 9.2 mg/dl (8.5-10.1); CARBON DIOXIDE 25 mmol/L (21-32); GLUCOSE 122 mg/dl (70-99); LIPASE 158 U/L (73-393); POTASSIUM 4.1 mmol/L (3.5-5.1); SODIUM 137 mmol/L (136-145)
[2018-03-04 20:42] LABS: ALKALINE PHOSPHATASE 197 U/L (45-117); TOTAL PROTEIN 7.5 gm/dl (6.4-8.2)
--- NOTE | 2018-03-04 21:52 | DIAGNOSTIC IMAGING REPORT ---
ABDOMEN AND PELVIS CT WITH IV CONTRAST CT DOSE: 253.33 mGy.cm HISTORY: fevers, chills, recent right nephrectomy TECHNIQUE: Multiaxial CT images of the abdomen and pelvis were performed following the use of intravenous contrast. A dose lowering technique was utilized adhering to the principles of ALARA. COMPARISON STUDY: Abdomen and pelvis CT 02/08/2018. FINDINGS: Mild dependent changes seen at the lung bases. There are few punctate foci of pneumoperitoneum. Small fat-containing right inguinal hernia containing trace gas. There is a right total hip arthroplasty. No suspicious lytic or blastic osseous lesions. Cholecystectomy. A 6 mm hypodense lesion within the central aspect of the liver on image 91. This is too small to characterize but favors a cyst. The spleen, pancreas, and left adrenal gland are unremarkable. Multiple hypodense lesions seen within the left kidney. The majority of these are subcentimeter in size and too small to characterize. Dominant lesion measures 3.6 cm. This does not appear to demonstrate significant enhancement compared to the prior noncontrast CT. Therefore, this favors a slightly hyperdense cyst. The bladder is not well identified due to the metallic artifact from the right hip prosthesis. The uterus appears surgically absent. No bowel wall thickening or obstruction. The right retrocrural lymph node seen on the prior study may still be present and measures approximately 12 mm in short axis diameter. Interval right-sided nephrectomy. There is fluid at the nephrectomy bed which measures 6.1 x 2.4 cm. This does not demonstrate an enhancing wall at this time. This fluid tracks along the right psoas muscle. IMPRESSION: 1. Status post right nephrectomy. There is fluid at the nephrectomy bed which measures 6.1 x 2.4 cm. This does not demonstrate an enhancing wall at this time to suggest an abscess. Therefore, this favors a seroma. However, if the patient symptoms continue to progress then consider follow-up contrast-enhanced CT to exclude a developing abscess. 2. Trace pneumoperitoneum. This is likely due to the patient's recent postoperative state. 3. The enlarged right retrocrural lymph node may still be present. However, this is difficult to confirm due to the adjacent postoperative changes. This bears watching on future examinations Electronically signed by: Damion Doan M.D. 03/04/2018 9:51 PM Dictated Date/Time: 03/04/2018 9:40 PM
[2018-03-04] MEDS ORDERED: SULFAMETHOXAZOLE/TRIMETHOPRIM DS 800/160MG TAB PO STA ×2 (22:09→22:14)
[2018-03-04] MEDS ORDERED: SULF800T23 PO (22:39)
[2018-03-04 22:55] VITALS: BP 133/62; PULSE 75; O2SAT 95
--- NOTE | 2018-03-04 23:04 | EMERGENCY ROOM VISIT NOTE ---
History Report prepared by Sabas: Megan Maki Under the Supervision of: Dr. Jignesh Serra M.D. First contact with patient: 19:24 Chief Complaint: ABDOMINAL PAIN Stated Complaint: ABDOMINAL PAIN History of Present Illness The patient is a 78 year old female who presents to the Emergency Room with complaints of worsening right-sided abdominal pain beginning 1 week ago which she rates between a 6 and an 8. The patient had a nephrectomy 1 week ago on the right side and was diagnosed with renal cell cancer. The patient reports having diaphoresis, chills, a cough, and nausea since her surgery. She reports that she was given Tramadol but states that she has been taking Tylenol for her pain as she does not like taking pain medication. She also reports taking Zofran which she stated has helped her. The patient reports having hip pain since the surgery. She denies having any redness or problems with the incision site. The patient reports a history of an appendectomy, hysterectomy, and cholecystectomy. Pt denies LOC, headache, visual changes, neck pain, chest pain , breathing difficulties, vomiting, back pain, melena, hematochezia, urinary symptoms, numbness, weakness, lymphadenopathy, rash, or other complaints. Source of History: patient Onset: 1 week ago Position: abdomen Symptom Intensity: rated between a 6 and an 8 Quality: other (pain ) Timing: worsening Associated Symptoms: + chills, + diaphoresis, + cough, + nausea, No vomiting Note: additional symptom: hip pain Review of Systems See HPI for pertinent positives and negatives. A total of ten systems were reviewed and were otherwise negative. Past Medical & Surgical Medical Problems: (1) Cholecystectomy (2) Intractable abdominal pain (3) Psoriasis (4) Renal cell cancer (5) Renal mass, right (6) Right Hip DJD (7) Vertigo Surgical Problems: (1) S/P appendectomy (2) S/P appendectomy (3) S/P hysterectomy (4) S/P hysterectomy (5) S/p nephrectomy Family History Cancer Diabetes mellitus FHx: gallbladder disease FHx: lung disease Hypertension Social History Smoking Status: Former Smoker Alcohol Use: none Drug Use: none Marital Status: Housing Status: lives alone Occupation Status: employed Current/Historical Medications Scheduled Acetaminophen (Tylenol), 1,000 MG PO UD Sulfa/Trimethoprim (Bactrim Ds 800MG/160MG), 1 TAB PO BID Scheduled PRN Docusate Sodium (Docusate Sodium), 1 CAP PO BID PRN for PRN Docusate Sodium (Docusate Sodium), 100 MG PO BID PRN for Constipation Polyethylene Glycol 3350 (Miralax), 17 GM PO DAILY PRN for PRN Tramadol (Ultram), 50 MG PO Q4H PRN for Pain Tramadol (Ultram), 50 MG PO Q4H PRN for Pain Allergies Coded Allergies: Codeine (Verified Adverse Reaction, Unknown, NAUSEA AND VOMITING, 02/21/18) Physical Exam Vital Signs Date Time Temp Pulse Resp B/P (MAP) Pulse Ox O2 Delivery O2 Flow Rate FiO2 03/04/18 22:55 75 18 133/62 95 03/04/18 21:39 76 20 135/71 95 Room Air 03/04/18 20:28 82 03/04/18 19:21 36.9 99 16 138/73 94 Room Air Physical Exam GENERAL: Awake, alert, uncomfortable-appearing, in no distress HENT: Normocephalic, atraumatic. Oropharynx unremarkable. EYES: Normal conjunctiva. Sclera non-icteric. NECK: Supple. No nuchal rigidity. FROM. No masses. RESPIRATORY: Clear to auscultation. No wheezes. No rales. Normal respiratory effort. CARDIAC: Normal rate. Normal rhythm. No murmurs. No rubs. Extremities warm and well perfused. Pulses equal. No JVD. GI: Soft, non-distended. No masses. Tenderness, guarding, and rebound to the right lower quadrant. Incision site clean, dry, and intact. RECTAL: Deferred. MUSCULOSKELETAL: Atraumatic. Chest examination reveals no tenderness. The back is symmetrical on inspection without obvious abnormality. There is no CVA tenderness to palpation. No joint edema. LOWER EXTREMITIES: Calves are equal size bilaterally and non-tender. No edema. No discoloration. NEURO: Normal sensorium. No sensory or motor deficits noted. SKIN: No rash or jaundice noted. Medical Decision & Procedures ER Provider Diagnostic Interpretation: Radiology results as stated below per my review and radiologist interpretation: CHEST ONE VIEW PORTABLE HISTORY: Generalized abdominal pain. COMPARISON: None. FINDINGS: Right basilar densities. The left lung is clear. The heart is normal in size. No pleural effusions. No pneumothorax. IMPRESSION: Interval development of right basilar densities which may represent atelectasis or pneumonia. This will be better assessed on the same day abdomen and pelvis CT Electronically signed by: Damion Doan M.D. 03/04/2018 7:55 PM Dictated Date/Time: 03/04/2018 7:49 PM ABDOMEN AND PELVIS CT WITH IV CONTRAST CT DOSE: 253.33 mGy.cm HISTORY: fevers, chills, recent right nephrectomy TECHNIQUE: Multiaxial CT images of the abdomen and pelvis were performed following the use of intravenous contrast. A dose lowering technique was utilized adhering to the principles of ALARA. COMPARISON STUDY: Abdomen and pelvis CT 02/08/2018. FINDINGS: Mild dependent changes seen at the lung bases. There are few punctate foci of pneumoperitoneum. Small fat-containing right inguinal hernia containing trace gas. There is a right total hip arthroplasty. No suspicious lytic or blastic osseous lesions. Cholecystectomy. A 6 mm hypodense lesion within the central aspect of the liver on image 91. This is too small to characterize but favors a cyst. The spleen, pancreas, and left adrenal gland are unremarkable. Multiple hypodense lesions seen within the left kidney. The majority of these are subcentimeter in size and too small to characterize. Dominant lesion measures 3.6 cm. This does not appear to demonstrate significant enhancement compared to the prior noncontrast CT. Therefore, this favors a slightly hyperdense cyst. The bladder is not well identified due to the metallic artifact from the right hip prosthesis. The uterus appears surgically absent. No bowel wall thickening or obstruction. The right retrocrural lymph node seen on the prior study may still be present and measures approximately 12 mm in short axis diameter. Interval right-sided nephrectomy. There is fluid at the nephrectomy bed which measures 6.1 x 2.4 cm. This does not demonstrate an enhancing wall at this time. This fluid tracks along the right psoas muscle. IMPRESSION: 1. Status post right nephrectomy. There is fluid at the nephrectomy bed which measures 6.1 x 2.4 cm. This does not demonstrate an enhancing wall at this time to suggest an abscess. Therefore, this favors a seroma. However, if the patient symptoms continue to progress then consider follow-up contrast-enhanced CT to exclude a developing abscess. 2. Trace pneumoperitoneum. This is likely due to the patient's recent postoperative state. 3. The enlarged right retrocrural lymph node may still be present. However, this is difficult to confirm due to the adjacent postoperative changes. This bears watching on future examinations Electronically signed by: Damion Doan M.D. 03/04/2018 9:51 PM Dictated Date/Time: 03/04/2018 9:40 PM Laboratory Results 03/04/18 19:55 Red Blood Count 4.33, Mean Corpuscular Volume 84.8, Mean Corpuscular Hemoglobin 27.9, Mean Corpuscular Hemoglobin Concent 33.0, Mean Platelet Volume 8.9, Neutrophils (%) (Auto) 67.6, Lymphocytes (%) (Auto) 22.4, Monocytes (%) (Auto) 5.8, Eosinophils (%) (Auto) 3.3, Basophils (%) (Auto) 0.4, Neutrophils # (Auto) 6.25, Lymphocytes # (Auto) 2.07, Monocytes # (Auto) 0.54, Eosinophils # (Auto) 0.31, Basophils # (Auto) 0.04 03/04/18 19:55 Test 03/04/18 19:55 03/04/18 20:05 White Blood Count 9.26 K/uL (4.8-10.8) Red Blood Count 4.33 M/uL (4.2-5.4) Hemoglobin 12.1 g/dL (12.0-16.0) Hematocrit 36.7 % (37-47) Mean Corpuscular Volume 84.8 fL (80-100) Mean Corpuscular Hemoglobin 27.9 pg (25-34) Mean Corpuscular Hemoglobin Concent 33.0 g/dl (32-36) Platelet Count 544 K/uL (130-400) Mean Platelet Volume 8.9 fL (7.4-10.4) Neutrophils (%) (Auto) 67.6 % Lymphocytes (%) (Auto) 22.4 % Monocytes (%) (Auto) 5.8 % Eosinophils (%) (Auto) 3.3 % Basophils (%) (Auto) 0.4 % Neutrophils # (Auto) 6.25 K/uL (1.4-6.5) Lymphocytes # (Auto) 2.07 K/uL (1.2-3.4) Monocytes # (Auto) 0.54 K/uL (0.11-0.59) Eosinophils # (Auto) 0.31 K/uL (0-0.5) Basophils # (Auto) 0.04 K/uL (0-0.2) RDW Standard Deviation 45.8 fL (36.4-46.3) RDW Coefficient of Variation 14.8 % (11.5-14.5) Immature Granulocyte % (Auto) 0.5 % Immature Granulocyte # (Auto) 0.05 K/uL (0.00-0.02) Anion Gap 7.0 mmol/L (3-11) Est Creatinine Clear Calc Drug Dose 33.4 ml/min Estimated GFR () 54.9 Estimated GFR (Non- 47.4 BUN/Creatinine Ratio 31.5 (10-20) Calcium Level 9.2 mg/dl (8.5-10.1) Total Bilirubin 0.3 mg/dl (0.2-1) Direct Bilirubin < 0.1 mg/dl (0-0.2) Aspartate Amino Transf (AST/SGOT) 11 U/L (15-37) Alanine Aminotransferase (ALT/SGPT) 24 U/L (12-78) Alkaline Phosphatase 197 U/L (45-117) Total Protein 7.5 gm/dl (6.4-8.2) Albumin 3.3 gm/dl (3.4-5.0) Lipase 158 U/L (73-393) Urine Color YELLOW Urine Appearance CLEAR (CLEAR) Urine pH 5.0 (4.5-7.5) Urine Specific [place] 1.028 (1.000-1.030) Urine Protein TRACE (NEG) Urine Glucose (UA) NEG (NEG) Urine Ketones NEG (NEG) Urine Occult Blood 2+ (NEG) Urine Nitrite NEG (NEG) Urine Bilirubin NEG (NEG) Urine Urobilinogen NEG (NEG) Urine Leukocyte Esterase SMALL (NEG) Urine WBC (Auto) 10-30 /hpf (0-5) Urine RBC (Auto) 0-4 /hpf (0-4) Urine Hyaline Casts (Auto) 1-5 /lpf (0-5) Urine Epithelial Cells (Auto) >30 /lpf (0-5) Urine Bacteria (Auto) 1+ (NEG) Laboratory results reviewed by me Medications Administered Medications (Trade) Dose Ordered Sig/Daisy Route Start Time Stop Time Status Last Admin Dose Admin Sodium Chloride 1,000 ml @ 125 mls/hr Q8H STAT IV 03/04/18 19:27 03/05/18 03:26 03/04/18 20:08 125 MLS/HR Ondansetron HCl (Zofran Inj) 4 mg NOW STAT IV 03/04/18 19:34 03/04/18 19:36 DC 03/04/18 20:09 4 MG Hydromorphone HCl (Dilaudid Inj) 0.25 mg Q15M PRN IV 03/04/18 19:45 03/18/18 19:44 03/04/18 21:43 0.25 MG Trimethoprim/ Sulfamethoxazole (Septra Ds 800/ 160MG Tab) 1 tab NOW STAT PO 03/04/18 22:09 03/04/18 22:10 DC 03/04/18 22:48 1 TAB ED Course 1926: Ordered Sodium Chloride 1,000 ml @ 125 mls/hr IV. 1929: The patient was evaluated in room A11B. A complete history and physical exam was performed. 1933: Ordered Zofran Inj 4 mg IV. 1944: Ordered Dilaudid 0.25 mg IV. 2199: I checked on the patient and she does feel a little better. 2204: Discussed the patient's case with Dr. Turner of Urology. He recommended that the patient continue her home pain medication, Bactrim for her UTI, and to follow up in the office. 2208: Ordered Trimethoprim/Sulfamethoxazole 1 tab PO. 2214: Ordered Trimethoprim/Sulfamethoxazole 1 tab PO For use at home tomorrow morning. 2241: I reevaluated the patient. Discussed results and discharge instructions: She verbalized understanding and agreement. The patient is ready for discharge. Medical Decision Prior records/ancillary studies reviewed. Triage Nursing notes reviewed and agree them. Additional history obtained from family. The patient's history was concerning for postoperative abdominal pain. Differential diagnosis: Etiologies such as complication of recent nephrectomy, diverticulitis, PUD, biliary pathology, UTI, pancreatitis, obstruction, mesenteric ischemia, aortic pathology, infections, inflammatory bowel disease, renal colic, as well as others were entertained. Physical examination findings: As above. ER treatment provided: Normal saline hydration IV Zofran IV Dilaudid On reassessment the patient felt much better. Oral Bactrim Diagnostics interpreted by me: The labs revealed an unremarkable CBC and chemistry panel. Urinalysis did reveal findings concerning for infection. Imaging studies: CT scan as above Consultation: A consultation was placed with the urologist on-call, Dr. Turner. The case was discussed and diagnostics were reviewed. He did review the patient's images. He felt that this was likely related to a seroma. He recommended Bactrim for her UTI and requested that the patient take her pain medication as prescribed as she has not been using this much at all. The patient will follow-up in the office. By the evaluation outlined above emergent etiologies such as appendicitis, diverticulitis, PUD, biliary pathology, pancreatitis, obstruction, mesenteric ischemia, aortic pathology, infections, inflammatory bowel disease, renal colic , as well as others were deemed relatively unlikely. The patient was informed about the findings as listed above. All questions were answered and she was pleased with the treatment. Return instructions were outlined and the patient was discharged in stable condition. Outpatient prescription management: Bactrim Patient will continue her tramadol as prescribed Referral: The patient was referred back to their primary care physician and urologist for a recheck of the current condition. Medication Reconcilliation Current Medication List: was personally reviewed by me Blood Pressure Screening Patient's blood pressure: Elevated blood pressure Blood pressure disposition: Referred to PCP Consults Time Called: 2129 Consulting Physician: Dr. Turner-Urology Returned Call: 2204 Discussed the patient's case with Dr. Turner of Urology. He recommended that the patient continue her home pain medication, Bactrim for her UTI, and to follow up in the office. Impression Primary Impression: Right flank pain Additional Impressions: UTI (urinary tract infection) status post right nephrectomy Scribe Attestation The scribe's documentation has been prepared under my direction and personally reviewed by me in its entirety. I confirm that the note above accurately reflects all work, treatment, procedures, and medical decision making performed by me. Departure Information Dispostion Home / Self-Care Prescriptions Sulfa/Trimethoprim (Bactrim Ds 800MG/160MG) Tab 1 TAB PO BID, #8 TAB Prov: Jignesh Serra MD 03/04/18 Referrals Mac Owens MD (PCP) Forms Call Back Authorization, HOME CARE DOCUMENTATION FORM, IMPORTANT VISIT INFORMATION Patient Instructions [facility] Additional Instructions Trimethoprim-Sulfamethoxazole(Bactrim DS): Take one pill twice daily for 5 days for your urine infection. All antibiotics can cause diarrhea. If this occurs and you feel worse or it does not resolve in 1-2 days follow up with your doctor or return to the Emergency Department as this could be signs of serious underlying problems. Any medication can cause an allergic reaction, stop the pills immediately and return to the ER for rash, hives, breathing difficulties, or swelling. Continue your tramadol as prescribed by Dr. Turner. Acetaminophen(Tylenol) may be used for fever or pain. Use 1000mg every six hours as needed. Avoid using more than 4000mg in a 24 hour period. Rest and drink plenty of fluids. Continue current medications. Return to the ER immediately for worsening or persistent abdominal pain, vomiting, fevers, back or flank pain, worsening of your condition, or as needed. Follow-up with Dr. Turner as discussed. Problem Qualifiers
== END 2018-03-04 22:56 | disposition home or self-care (01) ==
LOC: C.EDB 19:15 → C.EDA 22:56
DX: R10.9 Unspecified abdominal pain (principal); N39.0 Urinary tract infection, site not specified; Z90.5 Acquired absence of kidney; R03.0 Elevated blood-pressure reading, without diagnosis of hypertension; Z87.891 Personal history of nicotine dependence; Z88.6 Allergy status to analgesic agent

== ENCOUNTER → 2018-06-03 | Outpatient (CLI) | payer OTHER ==
[~2018-06-03] MED LIST changes: +SULF800T23 PO
--- NOTE | 2018-06-04 07:29 | MAMMOGRAPHY REPORT ---
BILATERAL DIGITAL SCREENING MAMMOGRAM TOMOSYNTHESIS WITH CAD: 06/03/2018 CLINICAL HISTORY: Routine screening. Patient has no complaints. TECHNIQUE: The study was acquired using full field digital technology and interpreted from soft copy. Breast tomosynthesis in addition to standard 2D mammography was performed. Current study was also ev aluated with a Computer Aided Detection (CAD) system. COMPARISON: Comparison is made to exams dated: 05/28/2017 mammogram, 05/22/2016 mammogram, 05/10/2015 m ammogram, 05/04/2014 mammogram, 04/28/2013 mammogram, and 04/22/2012 mammogram - [facility] enter. BREAST COMPOSITION: There are scattered areas of fibroglandular density in both breasts. FINDINGS: There are minimal vascular calcifications and a few benign rim calcifications in the breasts. No fabiana picious mass, architectural distortion or cluster of microcalcifications is seen. IMPRESSION: ACR BI-RADS CATEGORY 1: NEGATIVE There is no mammographic evidence of malignancy. A 1 year screening mammogram is recommended.( 019) The patient will receive written notification of the results. Some breast cancers are not detected with mammography. A negative mammographic report should not arley y biopsy if a clinically suggestive mass is present. Cassie Zhu M.D. ay/:06/03/2018 08:32:58 [employer] Supervisor: RT Lv(R)(M), [facility] letter sent: Normal 1/2 BI-RADS Code: ACR BI-RADS Category 1: Negative
== END | disposition home or self-care (01) ==
LOC: C.MAMM 07:35
PROVIDERS: ATTEND Family Medicine
DX: Z12.31 Encounter for screening mammogram for malignant neoplasm of breast (principal)

== ENCOUNTER → 2018-06-24 | Outpatient (CLI) | payer OTHER ==
[2018-06-24 09:23] LABS: HEMATOCRIT 38.4 % (37-47); HEMOGLOBIN 12.2 g/dL (12.0-16.0); MEAN CORPUSCULAR HEMOGLOBIN 28.9 pg (25-34); MEAN CORPUSCULAR HGB CONC 31.8 g/dl (32-36); MEAN PLATELET VOLUME 10.4 fL (7.4-10.4); PLATELET COUNT 318 K/uL (130-400); RED CELL DISTRIBUTION WIDTH SD 50.1 fL (36.4-46.3); WHITE BLOOD COUNT 5.99 K/uL (4.8-10.8)
[2018-06-24 09:36] LABS: ALBUMIN 3.5 gm/dl (3.4-5.0); ALKALINE PHOSPHATASE 130 U/L (45-117); ALT/SGPT 12 U/L (12-78); AST/SGOT 10 U/L (15-37); BLOOD UREA NITROGEN 33 mg/dl (7-18); CALCIUM 8.8 mg/dl (8.5-10.1); CARBON DIOXIDE 23 mmol/L (21-32); CREATININE 1.06 mg/dl (0.60-1.20); GLUCOSE 94 mg/dl (70-99); POTASSIUM 4.2 mmol/L (3.5-5.1); SODIUM 139 mmol/L (136-145)
== END | disposition home or self-care (01) ==
LOC: C.LAB 08:12
PROVIDERS: ATTEND Urology
DX: C79.9 Secondary malignant neoplasm of unspecified site (principal)

== ENCOUNTER → 2018-06-26 | Outpatient (CLI) | payer OTHER ==
[~2018-06-26] MED LIST changes: +OPTIRAY 320 IV PRN
--- NOTE | 2018-06-26 14:00 | DIAGNOSTIC IMAGING REPORT ---
CT SCAN OF THE CHEST, ABDOMEN, AND PELVIS WITH IV CONTRAST CLINICAL HISTORY: Lymphadenopathy. Renal cell carcinoma. COMPARISON STUDY: Chest x-ray dated 03/04/2018. Abdominal CT dated 03/04/2018. TECHNIQUE: Following the IV administration of 117 of Optiray 320, CT scan of the chest, abdomen, and pelvis was performed from the thoracic inlet to the proximal femora. Images are reviewed in the axial, sagittal, and coronal planes. IV contrast was administered without complication. A dose lowering technique was utilized adhering to the principles of ALARA. CT DOSE: 680.20 mGy.cm FINDINGS: CHEST: Thyroid: Imaged portions of the thyroid gland are normal in size and attenuation. Low-attenuation thyroid nodules measure up to 9 mm. Thoracic aorta: There is mild atherosclerotic calcification of the thoracic aorta, which is normal in caliber and demonstrates standard 3-vessel arch anatomy. No dissection is seen. Pulmonary vasculature: The pulmonary trunk is normal in caliber. There are no filling defects identified in the central pulmonary vessels to indicate pulmonary embolus. Note that this examination was not protocoled for evaluation of the pulmonary arteries. Heart: The heart is enlarged and without pericardial effusion. Lungs and pleural spaces: Mild emphysematous change is identified. There is no airspace consolidation or pleural effusion. Foci of scarring/atelectasis are present at the lung bases. Mineral secretions are seen within the right lower lobe airways. The trachea and central airways are patent. Mild apical scarring is observed. Mediastinum: There are scattered subcentimeter mediastinal lymph nodes. These are not pathologically enlarged by size criteria. Noa: Clear. Axillae: There is no axillary lymphadenopathy. Bony thorax: The skeletal structures are osteopenic. Degenerative change and hyperkyphosis are noted in the thoracic spine. Arthritic change is seen in the shoulders. No lytic or blastic lesions are identified. ABDOMEN AND PELVIS: Liver: The contrast-enhanced liver is normal in size, contour, and attenuation. Fatty infiltration is noted adjacent to falciform ligament. There is no intrahepatic or ductal dilatation. The hepatic veins and portal veins are patent. Scattered subcentimeter hypodensities likely represent cysts but are too small for definitive characterization. Gallbladder: Surgically absent noting clips in the gallbladder fossa. Spleen: Normal in size and attenuation. Pancreas: Unremarkable. Adrenal glands: The right adrenal gland is not identified and presumed surgically absent. The left adrenal gland is normal in appearance. Kidneys: The right kidney is surgically absent. There is no evidence of recurrent soft tissue lesion in the operative bed. The contrast enhanced left kidney is normal in size and without hydronephrosis. The kidneys enhance symmetrically. No enhancing left renal cortical mass is identified. Numerous low-attenuation lesions measure up to 3.6 cm are unchanged from prior studies and likely represent the complex cysts. Abdominal vasculature: The abdominal aorta is normal in course and caliber noting moderate to advanced atherosclerotic calcification. Bowel: There are scattered colonic diverticula without CT evidence of acute diverticulitis. Mild colonic fecal retention is observed. No bowel obstruction is seen. The appendix is not identified and reported surgically absent. Peritoneum: There is no intraperitoneal free air or abdominal ascites. Lymphadenopathy: None. Pelvic viscera: Evaluation of the pelvis is degraded by streak artifact from a right hip arthroplasty. Although decompressed, the bladder wall appears circumferentially thickened. The uterus is surgically absent. No adnexal lesion is seen. Skeletal structures: The skeletal structures are osteopenic. No lytic or blastic lesions are seen. There is mild lumbosacral spondylosis. A right hip arthroplasty is in place. Arthritic changes noted in the pubic symphysis and left hip. IMPRESSION: 1. There is no clear evidence of metastatic disease identified in the chest, abdomen, or pelvis. 2. Again seen are postoperative changes from right nephrectomy. The postoperative seroma seen on 03/04/2018 has resolved. 3. Mildly enlarged retrocrural lymph nodes seen on 03/04/2018 have resolved. 4. Cardiomegaly and emphysema. 5. There is no airspace consolidation or pleural effusion. 6. Presumed minimally complex cysts in the left kidney are unchanged. 7. Although decompressed, the bladder wall appears circumferentially thickened. Correlation with clinical findings and urinalysis will be required. 8. Additional findings as above. Electronically signed by: Marcello Lynn M.D. 06/26/2018 1:59 PM Dictated Date/Time: 06/26/2018 1:42 PM
--- NOTE | 2018-06-26 14:00 | DIAGNOSTIC IMAGING REPORT ---
SOFT TISSUE NECK WITH CLINICAL HISTORY: 78 years-old Female presenting with C79.9 cervical lymphadenopathy, metastases. TECHNIQUE: Multidetector CT of the neck was performed after the administration of intravenous contrast. IV contrast: 117 mL of Optiray 320. A dose lowering technique was used consistent with the principles of ALARA (as low as reasonably achievable). COMPARISON: None. CT DOSE (mGy.cm): The estimated cumulative dose is 680.20. FINDINGS: Keno Attendant topogram: Total right hip arthroplasty. Cholecystectomy clips. Extensive surgical clips along the right paraspinal upper abdomen. Visualized portion of the paranasal sinuses and mastoid air cells clear. Middle ears clear. External auditory canals clear. No suspicious nodular enhancement along the aerodigestive tract. No effacement of the valleculae or piriform sinuses. No thickening of the aryepiglottic folds or epiglottis. Parotid and submandibular glands normal. Few small nodules in the thyroid. No lymphadenopathy. Vessels patent. Atherosclerosis of aortic arch noted. Degenerative changes of the cervical spine. No destructive osseous lesion. Multiple teeth are absent. Trace emphysematous changes. Pleural parenchymal scarring at the apices most notable on the right. IMPRESSION: 1. No lymphadenopathy. No suspicious nodular enhancement to suggest a mass lesion. 2. Trace emphysema. Electronically signed by: Willam Bonilla M.D. 06/26/2018 1:58 PM Dictated Date/Time: 06/26/2018 1:52 PM
== END | disposition home or self-care (01) ==
LOC: C.CTS 13:08
PROVIDERS: ATTEND Urology
DX: C79.9 Secondary malignant neoplasm of unspecified site (principal); I51.7 Cardiomegaly; J43.9 Emphysema, unspecified

== ENCOUNTER 2019-06-03 09:56 | Inpatient (IN) ==
--- NOTE | 2019-05-14 14:06 | PAT Medication Instructions ---
Medication Instructions Date of Service May 14, 2019 Home Medications ibuprofen [Advil] 200 mg PO Q6H PRN ASK your prescriber and surgeon ibuprofen [Advil] 200 mg PO Q6H PRN Other Notes If you have any questions please call us at [phone] or [phone] or [phone] or [phone]
--- NOTE | 2019-05-19 11:05 | Anesthesiology Consultation ---
Date of Service May 19, 2019 Assessment & Plan (1) Encounter for pre-operative examination: Chart Review Chart Review: Acceptable Risk for Surgery and Patient seen in Pre Admission Testing Teaching & Discussion Pre-Anesthesia Teaching/Discussion Notes: Instructed NPO after midnight before surgery,except medications with 15 cc of water. Medication instructions provided according to the PAT guidelines. History Surgery Operation Date: 06/03/19 10:40 Proposed Procedures p Right Total Knee Replacement - Sherman Castillo MD Height/Weight Height: 5 ft 1.5 in Weight: 57.8 kg Allergies Allergy/AdvReac Type Severity Reaction Status Date / Time codeine AdvReac Unknown NAUSEA AND Verified 05/12/19 09:53 VOMITING Medications Home Medications Medication Instructions Recorded Confirmed Last Taken ibuprofen [Advil] 200 mg PO Q6H PRN 05/12/19 05/12/19 Unknown Past Medical History Medical History Emphysema lung emphysematous change per cxr Hx of renal cell cancer right s/p right nephrectomy (2018) Osteoarthritis Psoriasis Exercise / Class Metabolic Activity III < 4 Walking/Shop/Light housework (uses cane prn) Past Surgical History Surgical History History of right hip replacement History of right nephrectomy right hand assisted laparoscopic nephrectomy: 02/21/18: Grade 2 view, MAC#3 ETT 7.5 at [facility] Hx of appendectomy Hx of cholecystectomy Hx of hysterectomy Past Anesthesia History No Hx of Anesthesia Complications and No Family Hx of Anesthesia Complications History of PONV No Hx of PONV and No Hx of Motion Sickness Social History Smoking Status: Current every day smoker tobacco type: cigarettes Smoking cigarettes per day: 2-3 CIGARETTES/DAY; INTERMITTENT X SEVERAL YEARS Do You Dip or Chew Tobacco: No Hx Alcohol Use: No Hx Substance Use: No substance use type: does not use Review of Systems Patient denies chest pain, shortness of breath, reflux, cough, wheezing, palpitations. Physical Exam Vital Signs VITALS BP 172/69 (manual recheck 132/68)* P 52 TEMP 97.5 SP02 96%RA RESP 18 PHYSICAL Full neck and c-spine range of motion. Full TMJ range of motion. TMD 3 finger breaths Mallampati Score 3 Dentition: full dentures on upper, partial on lower Lungs: clear throughout to auscultation Cardiac: regular rate and rhythm, no murmurs noted Spine: normal Carotid arteries: negative bruit Extremities: no edema Testing Laboratory Results 05/19/19 11:45 05/19/19 11:45 PT 9.9 Seconds (9.0-12.0) 05/19/19 11:45 INR 1.0 (0.9-1.1) 05/19/19 11:45 APTT 23.6 Seconds (21.0-31.0) 05/19/19 11:45 Blood Type B Negative 05/19/19 11:45 Antibody Screen POSITIVE A 05/19/19 11:45 Blood bank aware of positive antibodies; nothing further from our perspective* Electrocardiogram Date: 05/19/19 SB at 48bpm. Moderate voltage criteria for LVH, may be normal variant. No significant change compared to 01/2018 per cardio. Chest X-Ray Date: 12/16/18 Findings: + NAD The heart is enlarged and there is atherosclerotic calcification of the thoracic aorta. Emphysema and chronic interstitial thickening are similar to previous. Apical scarring is observed. Degenerative change and scoliosis are noted in the thoracic spine. Cardiomegaly and emphysematous change. No acute cardiopulmonary abnormality is identified.
[2019-05-19 13:19] LABS: Basophils # (auto) 0.06 K/uL (0-0.2); Basophils % (auto) 0.6 %; Eosinophils # (auto) 0.22 K/uL (0-0.5); Eosinophils % (auto) 2.4 %; Hematocrit (blood only) 43.3 % (37-47); Hemoglobin 13.7 g/dL (12.0-16.0); Immature Granulocytes # (auto) 0.03 K/uL (0.00-0.02); Immature Granulocytes % (auto) 0.3 %; Lymphocytes # (auto) 2.35 K/uL (1.2-3.4); Lymphocytes % (auto) 25.2 %; Mean Corpuscular Hgb Conc 31.6 g/dL (32-36); Mean Corpuscular Volume 94.3 fL (80-100); Mean Platelet Volume 10.3 fL (7.4-10.4); Monocytes # (auto) 0.41 K/uL (0.11-0.59); Monocytes % (auto) 4.4 %; Neutrophils # (auto) 6.25 K/uL (1.4-6.5); Neutrophils % (auto) 67.1 %; Platelet Count 418 K/uL (130-400); RDW Coefficient of Variation 14.3 % (11.5-14.5); RDW Standard Deviation 48.7 fL (36.4-46.3); Red Blood Count 4.59 M/uL (4.2-5.4); White Blood Count 9.32 K/uL (4.8-10.8)
[2019-05-19 13:27] LABS: BUN Creatinine Ratio 26.3 (10-20); C Reactive Protein 0.54 mg/dl (0-0.29); Calcium 9.6 mg/dl (8.5-10.1); Creatinine Clr Calc Pharmacy 29.9 ml/min; Est GFR (African American) 52.2; Est GFR (Non-African American) 45.1
[2019-05-19 13:33] LABS: Partial Thromboplastin Ratio 0.9; Partial Thromboplastin Time 23.6 Seconds (21.0-31.0); Prothrombin Time 9.9 Seconds (9.0-12.0)
--- NOTE | 2019-05-31 12:37 | History and Physical Report ---
DATE OF ADMISSION: 06/03/2019 CHIEF COMPLAINT: Persistent right knee pain and discomfort. HISTORY OF PRESENT ILLNESS: The patient is an 79-year-old female known to me from a previous right hip replacement done in 09/2017. She has done quite well from her hip. She has developed increasing pain and discomfort and her knee has become worse more recently. She has seen my partner Dr. Dorado, injected her knee which provided her just very temporary relief. Pain has become more debilitating. She continued to work, but having difficulty doing that due to her knee pain. She uses a cane intermittently. She has used a walker at times. Pain is mostly medial. She elected to proceed with definitive treatment. PAST MEDICAL HISTORY: Significant for renal cell cancer status post nephrectomy without recurrence. PAST SURGICAL HISTORY: Previous surgeries includes: 1. Kidney removal in 02/21/2018. 2. Right total hip replacement done 10/08/2017. 3. Hysterectomy. 4. Appendectomy. ALLERGIES: CODEINE WHICH CAUSE NAUSEA. CURRENT MEDICATIONS: Include Advil. SOCIAL HISTORY: An 79-year-old female. She continues to work. She does not smoke. No significant alcohol intake. FAMILY HISTORY: Noncontributory. REVIEW OF SYSTEMS: Negative for diabetes, neurologic problem, vascular problem and bleeding disorders. No chest pain or shortness of breath. No history of DVT or PE. No known bleeding problems. PHYSICAL EXAMINATION: GENERAL: Shows a pleasant elderly female. She looks to be in pretty good health. HEENT: Benign. NECK: Supple. No lymphadenopathy. LUNGS: Clear to auscultation. HEART: Regular rate and rhythm. ABDOMEN: Soft, nontender, nondistended. EXTREMITIES: Grossly neurovascularly intact except as follows. Examination of the right knee reveals the patient ambulates with use of a cane. She has got varus alignment to her knee. She is tender over the medial joint line. Small knee effusion. Range of motion is 10 degrees short of full extension and 120 degrees of flexion. No instability. No pain with hip motion. X-RAYS: X-rays of the right knee reviewed. Shows advanced right knee DJD. She has complete loss of her medial joint space. She has got osteophytes of the medial femoral condyle and medial tibial plateau and subchondral sclerosis. ASSESSMENT: An 79-year-old female status post right hip replacement with advanced right knee degenerative joint disease. This has become less responsive to conservative care and she would like to have her right knee fixed. PLAN: We will take her to the Operating Room and do a right total knee replacement. The risks and benefits of this procedure were explained to the patient including but not limited to DVT, PE, , infection, neurological injury, vascular injury, bleeding problem, pain, limited range of motion, stiffness, persistent pain, etc. The patient understands and desires to proceed. Informed consent was obtained. The patient does only have a single kidney, so we are going to have to be careful with any NSAID use. She is planning to be discharged to home using [facility] and her daughter is going to come and stay with her.
[~2019-06-03 09:56] MED LIST changes: -ACET-1256 PO; +ACETAMINOPHEN 500 MG TAB PO SCH; +BUPIVACAINE 0.5 % 5 MG/1 ML PF 10ML VIAL ONE; +BUPIVACAINE LIPOSOME/PF 266 MG, BUPIVACAINE/EPINEPHRINE 50 ML, SODIUM CHLORIDE 0.9% 30 ... INFIL SCH; +CEFAZOLIN 2000MG 2,000 MG/15 ML SYR IV SCH; -CLC100 PO; -DOCU100C31 PO; +FAMOTIDINE 20 MG TAB PO SCH; +GABAPENTIN 300 MG CAP PO SCH; +LR 500ML BOLUS, THEN 15ML/HR IV SCH; +LR 60ML/HR IV SCH; +METOCLOPRAMIDE HCL 10 MG TABLET PO SCH; -OPTIRAY 320 IV PRN; -POLY335019 PO; +ROPIVACAINE 0.5% 5 MG/ML 30 ML VIAL ONE; -SULF800T23 PO; -TRAM-10 PO; +TRANEXAMIC ACID 1,000 MG **IV Intra-op IV SCH
[2019-06-03] MEDS ORDERED: MIDAZOLAM HCL 1 MG/ML 2ML VIAL ONE (10:11)
[2019-06-03] MEDS ORDERED: fentaNYL citrate 100 MCG/2 ML VIAL ONE (10:12)
--- NOTE | 2019-06-03 11:37 | History & Physical Bridge Note ---
Date of Service June 03, 2019 History & Physical Bridge Note I have examined the patient, reviewed the History & Physical and in the interval since the performance of the History & Physical I have noted the following changes of clinical significance: no changes noted
[2019-06-03] MEDS ORDERED: BUPIVACAINE 0.25% 30 ML VIAL ONE (11:43)
[2019-06-03] MEDS ORDERED: BUPIVACAINE LIPOSOME 1.3% 266 MG/20 ML VIAL ONE (11:43)
[2019-06-03] MEDS ORDERED: BACITRACIN INJ 50,000 UNIT VIAL ONE (11:43)
[2019-06-03] MEDS ORDERED: SODIUM CHLORIDE 0.9% PF 50 ML VIAL ONE (11:44)
[2019-06-03] MEDS ORDERED: EPINEPHrine INJ 1 MG/ML AMP ONE (11:44)
[2019-06-03] MEDS ORDERED: ATROPINE SULFATE 0.1 MG/ML 10ML SYR IV PRN (13:00)
[2019-06-03] MEDS ORDERED: ePHEDrine sulfate 50 MG/ML AMP IV PRN (13:00)
[2019-06-03] MEDS ORDERED: VANCOMYCIN HCL 1000MG/20ML VIAL ONE (13:34)
[2019-06-03] MEDS ORDERED: PROPOFOL IV EMULSION 10 MG/ML 20 ML VIAL IV ONE (14:02)
[2019-06-03] MEDS ORDERED: ePHEDrine sulfate 50 MG/ML SYR ONE (14:28)
--- NOTE | 2019-06-03 15:01 | Post Operative Brief Note ---
Immediate Post Op Note v1 Date of Surgery June 03, 2019 Pre & Post Diagnosis Operation Date: 06/03/19 12:30 Pre-Op Diagnosis: RIGHT KNEE DEGENERATIVE JOINT DISEASE Post-Op Diagnosis: RIGHT KNEE DEGENERATIVE JOINT DISEASE Procedure Operation Date: 06/03/19 12:30 Right Total Knee Arthoplasty Surgeon Sherman Castillo MD Meter Reader Candis, ROSE Estimated Blood Loss 50 Findings Consistent with Post-Op Diagnosis Fluids 1550 cc Specimens Right Knee Drains Britt Catheter Anesthesia Type Spinal MAC Complications none Disposition Accompanied Patient To Recovery: No Disposition: Recovery Room
--- NOTE | 2019-06-03 15:28 | XRay Report ---
XR knee RT 2V routine CLINICAL HISTORY: Surgical Post Op pain. Postoperative evaluation COMPARISON: 12/14/2013 DISCUSSION: Placement of a total right knee prosthetic. Good contact between prosthetic and underlyin g bone. At soft tissue postoperative change. IMPRESSION: Anatomic alignment posttotal right knee arthroplasty. The above report was generated using voice recognition software. It may contain grammatical, syntax or spelling errors. Electronically signed by: Beau Allison M.D. 06/03/2019 3:27 PM
--- NOTE | 2019-06-03 16:37 | Anesthesiology Progress Note ---
Date of Service June 03, 2019 Anesthesia Post Procedure Vital Signs Vital Signs: Temp Pulse Pulse Resp BP Pulse Ox 06/03/19 16:15 55 L 16 147/62 H 97 06/03/19 16:05 36.3 C L 49 L 16 145/63 H 98 06/03/19 15:55 56 L 14 140/59 L 98 06/03/19 15:45 49 L 14 143/63 H 99 06/03/19 15:35 47 L 14 154/76 H 98 06/03/19 15:25 51 L 14 151/62 H 99 06/03/19 15:15 52 L 14 135/58 L 99 06/03/19 15:08 36.4 C L 52 L 12 123/62 97 06/03/19 10:37 36.8 C 77 20 151/85 H 97 Pain Intensity Right Knee: Pain Intensity: 5 Transfer of Care Handoff Completed per policy Notes Mental Status: alert / awake / arousable and participated in evaluation Patient Amnestic to Procedure: Yes Nausea / Vomiting: adequately controlled Pain: adequately controlled Airway Patency, RR, SpO2: stable & adequate BP & HR: stable & adequate Hydration State: stable & adequate Neuraxial Anesthesia: was administered and sensory block is resolving Anesthetic Complications: no major complications apparent
[2019-06-03] MEDS ORDERED: MAGNESIUM HYDROXIDE SUSP 30 ML UDC PO PRN (16:40)
[2019-06-03] MEDS ORDERED: BISACODYL 10 MG SUPP PR PRN (16:40)
[2019-06-03] MEDS ORDERED: HYDROmorphone INJ 0.5 MG/0.5 ML SYR IV PRN (16:40)
[2019-06-03] MEDS ORDERED: SODIUM CHLORIDE 0.9% 1000ML 1,000 ML IV SCH (16:40)
[2019-06-03] MEDS ORDERED: NALOXONE HCL 0.4 MG/1 ML VIAL/CARP IV PRN (16:40)
[2019-06-03] MEDS ORDERED: METOCLOPRAMIDE HCL INJ 5 MG/ML 2 ML VIAL IV PRN (16:40)
[2019-06-03] MEDS ORDERED: ALUMINUM/MAGNESIUM SUSP 30 ML UDC PO PRN (16:40)
[2019-06-03] MEDS ORDERED: KETOROLAC TROMETHAMINE 15 MG/ML VIAL IV SCH (18:00)
[2019-06-03] MEDS: ASCORBIC ACID 500 MG TAB PO SCH (18:39)
[2019-06-03] MEDS: FERROUS GLUCONATE 324 MG TAB PO SCH (18:39)
[2019-06-03] MEDS: ONDANSETRON INJ 2 MG/ML 2 ML VIAL IV PRN (19:36)
[2019-06-03] MEDS: TRAMADOL HCL 50 MG TABLET PO PRN (20:06)
[2019-06-03] MEDS: DOCUSATE SODIUM 100 MG CAP PO SCH (20:45)
[2019-06-03] MEDS: SENNA 8.6 MG TAB PO SCH (20:46)
[2019-06-03] MEDS ORDERED: TRANEXAMIC ACID 1,000 MG in 0.9 % SODIUM CHLORIDE 100 ML IV SCH (21:00)
[2019-06-03] MEDS: CEFAZOLIN 1000MG 1,000 MG/7.5 ML SYR IV SCH (21:21)
[2019-06-03] MEDS: ASPIRIN 81 MG ECTAB PO SCH (21:21)
[2019-06-03] MEDS: ONDANSETRON 4 MG OD TAB PO SCH (21:21)
[2019-06-03] MEDS: ACETAMINOPHEN 500 MG TAB PO SCH (21:36)
[2019-06-03] MEDS ORDERED: PNEUMOCOCCAL POLYSACCHARIDES 25 MCG/0.5 ML VIAL/SYR IM ONE (22:00)
[2019-06-03] MEDS ORDERED: PNEUMOCOCCAL ADMINISTRATION CHARGE ONE (22:00)
--- NOTE | 2019-06-04 03:05 | Operative Report ---
DATE OF OPERATION: 06/03/2019 SURGEON: Sherman Castillo MD PARTS PROFESSIONAL: JOHN Connors PREOPERATIVE DIAGNOSIS: Right knee degenerative joint disease. POSTOPERATIVE DIAGNOSIS: Right knee degenerative joint disease. PROCEDURE PERFORMED: Right cemented posterior stabilized total knee arthroplasty. COMPLICATIONS: None. ESTIMATED BLOOD LOSS: 50 mL. FLUID REPLACEMENT: 1550 mL crystalloid fluid replacement. TOURNIQUET TIME: 51 minutes at 300 mmHg. ANESTHESIA: Spinal with adductor canal block. DRAINS: None. SPECIMENS: Right knee sent for pathology. OPERATIVE INDICATIONS: The patient is an 79-year-old female who has had a long history of multiple musculoskeletal aches and arthritic changes. She underwent a right hip replacement 2 years ago and has done well from that. She developed progressive and persistent pain in her right knee. She has underlying psoriasis as well. She had failed all conservative treatment. X-rays revealed right knee tricompartment DJD. She elected to proceed with operative treatment. OPERATIVE FINDINGS: Operative findings revealed extensive advanced right knee tricompartment DJD. She had extensive disease in all 3 compartments. She had osteophytes in all 3 compartments. Moderate to large knee joint effusion. OPERATIVE IMPLANTS: Operative implants consisted of: 1. A Biomet Vanguard size 60 right posterior stabilized femoral component. 2. A Biomet size 63 tibial tray. 3. A 10 mm posterior stabilized polyethylene insert. 4. A 28 x 8 all poly patella. OPERATIVE PROCEDURE: The patient was taken to the operating room, identified and placed on the operating table in supine position. All contact areas were appropriately padded. IV antibiotics were provided by anesthesia team. A spinal anesthetic and adductor canal block had been provided in the holding area. Britt catheter was placed in sterile fashion. A right thigh tourniquet was then placed and the right lower extremity was then prepped and draped in usual sterile fashion. The right leg was elevated and exsanguinated with an Esmarch and tourniquet was placed at 300 mmHg. An anterior approach to the right knee was then performed through a longitudinal incision centered over the patella. Sharp dissection was carried through the subcutaneous tissue down to the level of the extensor mechanism. A medial parapatellar arthrotomy incision was made. Some subperiosteal dissection was carried out medially. The fat pad was resected from beneath the patellar tendon. The lateral patellofemoral ligament was released. The patella was everted and knee was flexed. The osteophytes were taken off the distal femur. The ACL and PCL were then released from the distal femur and the tibia subluxated anteriorly. The external tibial alignment jig was then placed in the anterior face of the tibia and adjusted 16 mm medially. Proximal tibial cut was made to remove about a millimeter of bone from the most deficient aspect of the medial tibial plateau. Some osteophytes were taken off medial and posteromedially. Tibia was sized to a size 63. Attention was then drawn to the femur. The distal femur was entered with a sharp drill bit. The intramedullary canal was suctioned. A right 5-degree valgus cutting guide was placed. Distal femoral cutting block was pinned in place. Distal femoral cut was made to take an additional 3 mm of bone off the distal femur. Femur was then sized to a size 60. We did downsize this slightly. The AP cutting block was pinned parallel to the epicondylar axis, which was 5 degrees of external rotation. The anterior cut, anterior chamfer cut, posterior cut, posterior chamfer cuts were made. Box cutting guide was placed and adjusted slightly lateral and the box cut was made. The knee was flexed. The remnants of the medial and lateral menisci were excised. The osteophytes were taken off the posterior aspect of the femur. A trial femoral component was placed. The tibial tray was pinned in maximum external rotation and the drill and stem punch were used to create a defect in the proximal tibia for the tibial tray. The knee was then trialed and the 10 mm insert fit most appropriately. Attention was then drawn to patella. The patella was cleaned of all soft tissues. Patella thickness measured 18 mm in thickness, it was cut down to 12. It was sized to a size 28 patella. Lug holes were drilled for a 28 patella. The lateral osteophyte was removed. Patella button was placed. Knee was taken through range of motion, patella tracked nicely with no thumbs test. Attention was then drawn toward placement of permanent components. All trial components were removed. Bone plug was placed in the distal femur to limit blood loss. A double batch of Palacos G cement was mixed. A Biomet Vanguard size 60 right posterior stabilized femoral component, a size 63 tibial tray, a 10 mm posterior stabilized polyethylene insert, and a 28 x 8 all poly patella were then cemented in place. Of note, I did add an additional gram of vancomycin in the cement due to her history of a pretty extensive psoriasis throughout. The knee was brought out into full extension until the cement hardened. A final cement check was then performed. Pericapsular tissues were injected with a total of 100 mL of combination of 20 mL of Exparel, 30 mL of normal saline, 50 mL of 0.25% Marcaine with epinephrine. The knee was brought out into full extension until cement hardened. A final cement check was then performed. Pericapsular tissues were injected with a total of 100 mL of a combination of 20 mL of Exparel, 30 mL of normal saline, 50 mL of 0.25% Marcaine with epinephrine. The wound was extensively irrigated. The tourniquet was let down for a final tourniquet time of 51 minutes. Hemostasis was assured using electrocautery. The extensor mechanism was then closed with a combination of #1 PDS suture and #1 Vicryl suture in a [id number] fashion. Extensor mechanism was checked and found to be intact. The subcutaneous tissue was then closed with #2 Dexon suture in a buried interrupted fashion. Skin was closed with skin marek. Leg was then cleaned and dried and a sterile dressing of Xeroform, 4 x 4, sterile cast padding, and Kenneth bandage were applied. The patient was then transferred to the recovery room in stable condition. The patient tolerated the procedure well with no complication. All needle and sponge counts were correct at the end of the operation. I attest to the content of the Intraoperative Record and any orders documented therein. Any exception s are noted below.
[2019-06-04] MEDS: CEFAZOLIN 1000MG 1,000 MG/7.5 ML SYR IV SCH (05:56)
[2019-06-04] MEDS: ACETAMINOPHEN 500 MG TAB PO SCH ×3 (05:56→21:43)
[2019-06-04 06:08] LABS: Hematocrit (blood only) 32.3 % (37-47); Hemoglobin 10.4 g/dL (12.0-16.0); Mean Corpuscular Hgb Conc 32.2 g/dL (32-36); Mean Corpuscular Volume 91.8 fL (80-100); Mean Platelet Volume 9.7 fL (7.4-10.4); Platelet Count 231 K/uL (130-400); RDW Coefficient of Variation 14.2 % (11.5-14.5); RDW Standard Deviation 47.5 fL (36.4-46.3); Red Blood Count 3.52 M/uL (4.2-5.4); White Blood Count 6.31 K/uL (4.8-10.8)
[2019-06-04 06:34] LABS: BUN Creatinine Ratio 21.5 (10-20); Calcium 8.1 mg/dl (8.5-10.1); Est GFR (African American) 54.5; Potassium 4.1 mmol/L (3.5-5.1)
[2019-06-04] MEDS: ONDANSETRON INJ 2 MG/ML 2 ML VIAL IV PRN (06:54)
[2019-06-04] MEDS: ONDANSETRON 4 MG OD TAB PO SCH ×4 (08:59→21:44)
[2019-06-04] MEDS: ASCORBIC ACID 500 MG TAB PO SCH ×2 (09:39→18:01)
[2019-06-04] MEDS: FERROUS GLUCONATE 324 MG TAB PO SCH ×2 (09:39→18:01)
[2019-06-04] MEDS: MULTIVITAMIN TAB PO SCH (09:39)
[2019-06-04] MEDS: ASPIRIN 81 MG ECTAB PO SCH ×2 (09:39→20:37)
[2019-06-04] MEDS: DOCUSATE SODIUM 100 MG CAP PO SCH ×2 (09:39→20:37)
--- NOTE | 2019-06-04 09:53 | Anesthesiology Progress Note ---
Date of Service June 04, 2019 Anesthesia Post Procedure Vital Signs Vital Signs: Temp Pulse Pulse Resp BP Pulse Ox 06/04/19 07:44 36.5 C 57 L 18 135/64 94 06/04/19 03:15 36.5 C 54 L 16 137/64 95 06/03/19 22:55 36.5 C 60 16 139/66 95 06/03/19 21:25 156/71 H 06/03/19 19:00 36.1 C L 59 L 20 174/72 H 96 06/03/19 18:28 61 16 146/68 H 98 06/03/19 17:29 36.4 C L 54 L 18 145/62 H 99 06/03/19 17:07 47 L 16 100/65 100 06/03/19 17:01 36.4 C L 56 L 20 161/73 H 98 06/03/19 16:46 36.9 C 57 L 20 146/64 H 97 06/03/19 16:15 55 L 16 147/62 H 97 06/03/19 16:05 36.3 C L 49 L 16 145/63 H 98 06/03/19 15:55 56 L 14 140/59 L 98 06/03/19 15:45 49 L 14 143/63 H 99 06/03/19 15:35 47 L 14 154/76 H 98 06/03/19 15:25 51 L 14 151/62 H 99 06/03/19 15:15 52 L 14 135/58 L 99 06/03/19 15:08 36.4 C L 52 L 12 123/62 97 06/03/19 10:37 36.8 C 77 20 151/85 H 97 Notes Mental Status: alert / awake / arousable and participated in evaluation Nausea / Vomiting: adequately controlled Pain: adequately controlled Airway Patency, RR, SpO2: stable & adequate BP & HR: stable & adequate Hydration State: stable & adequate Neuraxial Anesthesia: sensory block resolved
--- NOTE | 2019-06-04 11:19 | Progress Note ---
DATE: 06/04/2019 SUBJECTIVE: An 79-year-old white female postop day 1 from right knee replacement. She is doing okay. Just feeling nauseated. Really not having any pain yet. No chest pain or shortness of breath. Not feeling dizzy or lightheaded. OBJECTIVE: VITAL SIGNS: Temperature 36.5. Vital signs stable. PHYSICAL EXAMINATION: GENERAL: Pleasant elderly female. She is lying in bed and was sleeping when I visited her this morning. She is easily arousable. LUNGS: Clear to auscultation. HEART: Has regular rate and rhythm. ABDOMEN: Soft, nontender, nondistended. EXTREMITIES: Grossly neurovascularly intact except as follows. Examination of the right lower extremity reveals the dressing to be clean, dry and intact. Leg is well aligned. She can dorsiflex and plantarflex her foot appropriately. She is neurologically intact. LABORATORY DATA: Hemoglobin 10.4. Hematocrit 32.3. Electrolytes are stable. Creatinine is stable at 1.10. ASSESSMENT: An 79-year-old white female postop day 1 from right knee replacement, doing pretty well. She is a bit nauseated and does not do well with pain medicine. PLAN: 1. DVT prophylaxis including thigh-high TEDs, SCDs, and baby aspirin twice a day for the next 6 weeks. 2. PT/OT. She will weightbear as tolerated. Right total knee protocol. 3. Pain control, doing okay with current pain regimen. We will have to limit NSAIDS due to kidney concerns as she only has one kidney. We will use aspirin for DVT prophylaxis and just try and stick to Tylenol as much as possible for pain. 4. Disposition: She is going to be discharged to home with some home health once adequately recovered.
[2019-06-04] MEDS: TRAMADOL HCL 50 MG TABLET PO PRN ×2 (13:17→18:51)
[2019-06-04] MEDS: SENNA 8.6 MG TAB PO SCH (20:37)
[2019-06-05] MEDS: TRAMADOL HCL 50 MG TABLET PO PRN ×2 (05:31→09:27)
[2019-06-05] MEDS: ACETAMINOPHEN 500 MG TAB PO SCH (05:34)
--- NOTE | 2019-06-05 08:15 | Orthopedic Progress Note ---
Date of Service June 05, 2019 Assessment & Plan (1) Total knee replacement status: She's doing well. She was seen and examined by Dr. Dorado. Continue Pt/OT wbat. Continue current pain management and dvt prophylaxis discharge home today with home health and follow up approx 2 weeks Subjective POD #2 from right TKA. She's having some knee pain. No other new complaints. Physical Exam Physical Exam: She's alert and oriented. NAD. Small amount of dried blood on dressing. Able to move her toes appropriately, DF/PF, NVI Results & Data Vital Signs (Past 12 Hours) Vital Signs Temp Pulse Pulse Resp BP Pulse Ox 06/05/19 07:34 36.9 C 55 L 70 16 123/62 93 06/05/19 07:26 36.9 C 70 16 123/62 93 06/04/19 22:55 37.1 C 69 16 154/76 H 92
[2019-06-05] MEDS: DOCUSATE SODIUM 100 MG CAP PO SCH (08:56)
[2019-06-05] MEDS: MULTIVITAMIN TAB PO SCH (08:56)
[2019-06-05] MEDS: ASPIRIN 81 MG ECTAB PO SCH (08:57)
[2019-06-05] MEDS: ASCORBIC ACID 500 MG TAB PO SCH (08:57)
[2019-06-05] MEDS: FERROUS GLUCONATE 324 MG TAB PO SCH (08:58)
[2019-06-05] MEDS: ONDANSETRON 4 MG OD TAB PO SCH (08:58)
--- NOTE | 2019-06-06 14:35 | Discharge Summary ---
ADMITTING PHYSICIAN AND SURGEON: Dr. Sherman Castillo. ADMITTING DIAGNOSIS: Right knee degenerative joint disease. SURGERY PERFORMED: Right total knee arthroplasty. SECONDARY DIAGNOSES: Renal cell cancer and nephrectomy. CONSULTS: None obtained. HISTORY AND PHYSICAL EXAMINATION: Well documented in the patient's chart. HOSPITAL COURSE: The patient was admitted on 06/03/2019 underwent total knee arthroplasty, tolerated the procedure well. There were no complications. She was transferred to the PACU postoperatively and later to the orthopedic floor for further care. She was given Ancef for antibiotic prophylaxis, CELE stockings, SCDs and aspirin for DVT prophylaxis. Hemoglobin, hematocrit and vital signs were monitored during hospital stay and remained stable. She did not require any blood transfusions. There were no complications. By postoperative day 2, she was tolerating a regular diet, pain was controlled with oral pain medicine. She was participating in physical therapy. On postop day 2, she was discharged home, set up with home health services. She was given printed discharge instructions as well as new prescriptions for extra strength Tylenol, aspirin, iron supplement, Zofran and tramadol. Continue home medications with the exception of her home dose of Tylenol, which was changed. Continue physical therapy, weightbearing as tolerated. Follow up approximately 2 weeks postoperatively or sooner if there are any problems or concerns.
== END 2019-06-05 12:49 | disposition home health service (06) | DRG 470 ==
LOC: ASU 09:56 → 3E 15:05

== ENCOUNTER 2024-03-31 14:17 | Inpatient (IN) ==
--- NOTE | 2024-03-31 14:39 | Emergency Department Note ---
History of Present Illness General Chief complaint: Referred by Doctor Stated complaint: BLOOD WORK, CHEST X RAY Time Seen by Provider: 03/31/24 14:24 Source: patient, RN notes reviewed and old records reviewed (Notes from call from [facility] when they referred the patient today) Mode of arrival: ambulatory Limitations: no limitations History of Present Illness This patient 84-year-old female who was referred by [facility] after feeling sick for several days. She says she has been sick since Mother's Day. She has had vomiting and diarrhea last couple days got worse no blood or coffee- ground emesis no blood or black colors in her stool she continues to cough a lot. She says it is sometimes yellow sometimes it makes her vomit she feels short of breath with this. No fever now but had it the first couple days. No chest pain she has no known sick exposures although she does work in a store and when they referred here they are concerned about whooping cough potentially. She tells me she is in no known exposure to this. No recent antibiotics. No history of pulmonary disease diabetes or cardiac disease. She did have 1 kidney removed 5 years ago for cancer and she says she is in remission and is on no chemo. No fall or trauma or injury. Home Medications Medication Instructions Recorded Confirmed Type acetaminophen 500 mg tablet 500 mg PO Q6H PRN PAIN/FEVER 03/31/24 03/31/24 History Allergies Allergy/AdvReac Type Severity Reaction Status Date / Time codeine AdvReac Unknown NAUSEA AND Verified 08/30/23 08:56 VOMITING Past Med/Surg History Problem List (Updated 03/31/24 @ 17:06 by Elias Cardenas MD) Hypoxemia (Acute) Enterovirus infection (Acute) Acute dehydration (Acute) Cough (Acute) Thoracic lymphadenopathy Right ankle pain Trochanteric bursitis of right hip Hand arthritis Rotator cuff syndrome of left shoulder Urinary incontinence Urgency of urination Total knee replacement status Arthritis (Acute) Cervical lymphadenopathy (Acute) Clear cell carcinoma of kidney (Acute) Nausea (Acute) Encounter for pre-operative examination Renal cell cancer (Chronic) Leg pain, right (Acute) Intractable abdominal pain Renal mass, right Medical History Emphysema lung emphysematous change per cxr Psoriasis Osteoarthritis Hx of renal cell cancer right s/p right nephrectomy (2018) Surgical History Hx of appendectomy History of right hip replacement Hx of cholecystectomy Hx of hysterectomy History of right nephrectomy right hand assisted laparoscopic nephrectomy: 02/21/18: Grade 2 view, MAC#3 ETT 7.5 at [facility] Family History Sister Diabetes Hypertension Lung cancer Denies family history of Myocardial infarction Colorectal cancer Cancer Social History Smoking Status: Former smoker Tobacco Type: Cigarettes Age Started Using Tobacco: 20; Age Quit Using Tobacco: 81; Cigarettes Per Day: 2-3 CIGARETTES/DAY; INTERMITTENT X SEVERAL YEARS; Second Hand Exposure: No; Do You Dip or Chew Tobacco: No; Hx Alcohol Use: No Hx Substance Use: No Preferred Language: Polish Communication Ability: Effective Visual Impairment: No Limitations Beliefs That Will Affect Care: None Current Living Situation: Alone Feels Safe at Home: Yes Assistive Devices: Walker Review of Systems A total of 10 systems reviewed and were otherwise negative Physical Exam Vital Signs Vital Signs - 24 hr 03/31/24 14:18 03/31/24 15:00 03/31/24 15:12 Temperature 37.4 C Temperature Source Temporal Artery Scan Pulse Rate 95 H 70 Pulse Rate [Right Finger] 70 Pulse Rate from SpO2 Sensor Pulse Rhythm Regular Regular Pulse Rhythm [Right Finger] Regular Pulse Strength Normal Pulse Strength [Right Finger] Normal Respiratory Rate 20 18 18 Respiratory Effort / Characteristics Non-Labored Respiratory Depth Normal Respiratory Pattern Regular Blood Pressure 119/65 Blood Pressure [Right Arm] 134/68 Blood Pressure Mean 83 Blood Pressure Mean [Right Arm] 90 Blood Pressure Position Sitting Blood Pressure Position [Right Arm] Pulse Oximetry 91 98 98 Oxygen Delivery Method Room Air Room Air Room Air Sepsis Recent Fever Within 48 Hours No Sepsis New/Unexplained Change in Mental Status N/A Sepsis Action Taken by Nursing No Action Required 03/31/24 15:15 03/31/24 15:17 03/31/24 15:30 Temperature Temperature Source Pulse Rate 70 73 Pulse Rate [Right Finger] 70 Pulse Rate from SpO2 Sensor 70 73 Pulse Rhythm Pulse Rhythm [Right Finger] Pulse Strength Pulse Strength [Right Finger] Respiratory Rate 14 22 24 Respiratory Effort / Characteristics Respiratory Depth Normal Respiratory Pattern Blood Pressure 131/61 102/55 L Blood Pressure [Right Arm] 131/85 Blood Pressure Mean 84 70 Blood Pressure Mean [Right Arm] 100 Blood Pressure Position Blood Pressure Position [Right Arm] Pulse Oximetry 96 95 95 Oxygen Delivery Method Room Air Room Air Room Air Sepsis Recent Fever Within 48 Hours Sepsis New/Unexplained Change in Mental Status Sepsis Action Taken by Nursing 03/31/24 15:34 03/31/24 16:00 03/31/24 16:30 Temperature Temperature Source Pulse Rate 71 70 76 Pulse Rate [Right Finger] Pulse Rate from SpO2 Sensor 71 73 Pulse Rhythm Pulse Rhythm [Right Finger] Pulse Strength Pulse Strength [Right Finger] Respiratory Rate 22 24 Respiratory Effort / Characteristics Respiratory Depth Respiratory Pattern Blood Pressure 133/70 123/63 Blood Pressure [Right Arm] Blood Pressure Mean 91 83 Blood Pressure Mean [Right Arm] Blood Pressure Position Blood Pressure Position [Right Arm] Pulse Oximetry 95 92 Oxygen Delivery Method Room Air Room Air Sepsis Recent Fever Within 48 Hours Sepsis New/Unexplained Change in Mental Status Sepsis Action Taken by Nursing 03/31/24 17:00 03/31/24 17:02 Temperature 36.7 C Temperature Source Oral Pulse Rate 80 Pulse Rate [Right Finger] 79 Pulse Rate from SpO2 Sensor 79 Pulse Rhythm Pulse Rhythm [Right Finger] Regular Pulse Strength Pulse Strength [Right Finger] Normal Respiratory Rate 22 22 Respiratory Effort / Characteristics Non-Labored Spontaneous Respiratory Depth Normal Respiratory Pattern Regular Blood Pressure 119/86 Blood Pressure [Right Arm] 119/86 Blood Pressure Mean 97 Blood Pressure Mean [Right Arm] 97 Blood Pressure Position Blood Pressure Position [Right Arm] Sitting Pulse Oximetry 95 91 Oxygen Delivery Method Room Air Room Air Sepsis Recent Fever Within 48 Hours Sepsis New/Unexplained Change in Mental Status Sepsis Action Taken by Nursing General: Well developed well nourished older female who is coughing frequently but otherwise in no acute distress, breathing comfortably on room air. Normal speech, normal mentation and alert and orient times HEENT: Normal cephalic atraumatic. Pupils are equal round and reactive to light. Extraocular movements are intact. Oropharynx is pink with moist mucous membranes. No swelling of the mouth lips or tongue. Neck: Supple with a midline trachea. No meningeal signs or stiffness, no JVD or bruits. No Stridor. Chest: Clear to auscultation bilaterally anteriorly posteriorly, her lung sounds are somewhat rhonchorous/junky that clear with coughing. no increased work of breathing. Heart: Regular rate and rhythm without murmurs or gallops. Abdomen: Soft nontender, nondistended without rebound guarding or rigidity. Extremities: No cyanosis clubbing or edema. No calf tenderness or assymetry Spine/Back. Non tender to palpation. No CVA tenderness Skin: Good turgor without rashes. Neurologic exam: Cranial nerves two through 12 are intact. Motor and sensation are intact and symmetrical throughout. Course Administered Medications Discontinued Medications Sodium Chloride (Nss) 500 mls @ 999 mls/hr IV .Q31M ONE Stop: 03/31/24 15:04 Last Infusion: 03/31/24 15:41 Dose: Infused Documented By: Admin: 03/31/24 15:11 Dose: 999 mls/hr Documented By: MYRANDA Medical Decision Making Differential Diagnosis Pertussis, viral illness, influenza, COVID, pneumonia, sepsis, dehydration, electrolyte or metabolic abnormality, GI illness, cardiac Medical Records Attestation: I reviewed the patient's medical records. Home Medications Current Medication List: was personally reviewed by me Laboratory Data Attestation: I reviewed the patient's lab results. 03/31/24 15:07 03/31/24 15:07 Lab Results 03/31/24 Range/Units 15:07 WBC 10.63 (4.8-10.8) K/ul RBC 4.33 (4.20-5.40) M/uL Hgb 12.0 (12.0-16.0) g/dl Hct 38.7 (37.0-47.0) % MCV 89.4 (80.0-100.0) fL MCH 27.7 (25.0-34.0) pg MCHC 31.0 L (32.0-36.0) g/dL RDW Std Deviation 48.3 H (36.4-46.3) fL RDW Coeff of Ketty 14.6 H (11.5-14.5) % Plt Count 387 (130-400) K/uL MPV 9.3 L (9.4-12.4) fL Immature Gran % (Auto) 0.7 % Neut % (Auto) 76.9 % Lymph % (Auto) 15.1 % [place] % (Auto) 6.3 % Eos % (Auto) 0.6 % Baso % (Auto) 0.4 % Neut # (Auto) 8.19 H (1.40-6.50) K/uL Lymph # (Auto) 1.60 (1.20-3.40) K/uL [place] # (Auto) 0.67 H (0.11-0.59) K/uL Eos # (Auto) 0.06 (0.00-0.50) K/uL Baso # (Auto) 0.04 (0.00-0.20) K/uL Immature Gran # (Auto) 0.07 (0.01-0.20) K/uL Sodium 138 (136-145) mmol/L Potassium 4.5 (3.5-5.1) mmol/L Chloride 104 (98-107) mmol/L Carbon Dioxide 25 (21-32) mmol/L Anion Gap 9 (3-11) BUN 30 H (6-23) mg/dl Creatinine 1.27 H (0.6-1.2) mg/dl Est Cr Clr Drug Dosing 26.1 ml/min Est GFR ( Amer) 44.3 ml/min Est GFR (Non-Af Amer) 38.2 ml/min BUN/Creatinine Ratio 23.6 H (10-20) Glucose 110 H (70-99(Fasting)) mg/dl Lactate 1.2 (0.4-2.0) mmol/L Calcium 9.6 (8.6-10.3) mg/dl Magnesium 2.1 (1.7-2.4) mg/dl Total Bilirubin 0.4 (0.2-1.0) mg/dl Direct Bilirubin 0.1 (0-0.2) mg/dl AST 19 (13-39) U/L ALT 15 (7-52) U/L Alkaline Phosphatase 131 H (34-104) U/L Troponin I High Sens 4.3 (0-14) pg/ml Total Protein 7.5 (6.0-8.3) gm/dl Albumin 4.1 (3.4-5.0) gm/dl Procalcitonin 0.09 (0-0.5) ng/ml Adenovirus (PCR) Not Detected (NotDetected) B. pertussis DNA (PCR) Not Detected (NotDetected) B.parapertussis DNA PCR Not Detected (NotDetected) C. pneumoniae DNA (PCR) Not Detected (NotDetected) Coronavirus OC43 (PCR) Not Detected (NotDetected) Coronavirus HKU1 (PCR) Not Detected (NotDetected) Coronavirus 229E (PCR) Not Detected (NotDetected) SARS-CoV-2 (PCR) Not Detected (NotDetected) Coronavirus NL63 (PCR) Not Detected (NotDetected) Human Metapneumovir PCR Not Detected (NotDetected) Influenza Type A (PCR) Not Detected (NotDetected) Influenza Type B (PCR) Not Detected (NotDetected) M. pneumoniae (PCR) Not Detected (NotDetected) Parainfluenza 1 (PCR) Not Detected (NotDetected) Parainfluenza 2 (PCR) Not Detected (NotDetected) Parainfluenza 3 (PCR) Not Detected (NotDetected) Parainfluenza 4 (PCR) Not Detected (NotDetected) RSV (PCR) Not Detected (NotDetected) Entero/Rhino (PCR) DETECTED A (NotDetected) Imaging Data Attestation: I personally reviewed and interpreted this imaging study as follows: My Impression: Chest x-rayno acute infiltrate, failure, pneumothorax seen with the exception of a possible infiltrate in the right base Radiologist's Impression: Chest X-Ray 03/31/24 14:34 XR chest 1V portable HISTORY: Sepsis COMPARISON: Chest 12/12/2022. Abdomen and pelvis CT 03/13/2024. FINDINGS: No pneumothorax. No pleural effusions. The cardiac silhouette remains borderline enlarged. No evidence for pulmonary edema. Surgical clips seen within the right upper quadrant. No acute fractures. There is bibasilar interstitial thickening with a hazy right base airspace opacity. This has progressed in the interval and favors a bibasilar pneumonitis. This could be due to aspiration. IMPRESSION: Interval progression of the bibasilar pneumonitis which could be due to aspiration. ACT 112: Negative or not required by law. Electronically signed by: Damion Doan M.D. 03/31/2024 3:06 PM ECG Data Attestation: I personally reviewed and interpreted this ECG as follows: Indication: + weakness Rate (beats per minute): 73 Rhythm: + normal sinus and + other (Poor baseline) ECG Intervals/blocks: + Normal QRS, + Normal QT and + Normal RI ECG [place]: + Normal ECG ST segments: + Normal ST segments ECG Findings: no PACs or no PVCs Comparison ECG Date: from (05/19/19) Change: no significant change MDM Narrative This patient comes in described above. She was placed on a vehicle monitor technician in room 89. I did order a full sepsis type workup on her. Clinically I think she is a little dehydrated she was given 500 cc IV normal saline bolus, chest x-ray ,,EKG multiple blood testing were obtained, and I also ordered a bio fire. She was reassessed frequently. Her white count is not elevated inflammatory markers are reassuring she does have some renal insufficiency which may be up compared to her most recent baseline. She did receive 1 L normal saline bolus and seems to be doing okay I am concerned however she is hypoxemic with O2 sat of 91-92 when resting when I have her cough it does come up at times when I had her sit up to try to listen to her which dropped into the high 80s. She does live independently at home and with her enterovirus concern for dehydration and hypoxemia I do think she needs to be admitted/observed. Do not give her antibiotics at this point as I think is most likely viral. I have consulted the hospitalist to see in the ER for further treatment and evaluation. I have discussed the case at length with Dr. Fatima, who will be seeing her for these measures Continuous cardiac monitoring: Orders placed in EMR for continuous vehicle monitor technician call upon my evaluation patient noted to be normal sinus rhythm with a rate of 85 Impression & Plan Cough, Acute dehydration, Enterovirus infection, Hypoxemia Discharge Plan Visit Data Chief Complaint: Referred by Doctor Stated Complaint: BLOOD WORK, CHEST X RAY ED Provider: Elias Cardenas Discharge Problem: Cough, Acute dehydration, Enterovirus infection, Hypoxemia Forms Stand Alone Forms: My [facility] Prescriptions Prescriptions: No Action acetaminophen [Tylenol Ex Str Rapid Release] 500 mg Tablet 500 mg PO Q6H PRN (Reason: PAIN/FEVER) Referrals Referrals: PCP,NO [Primary Care Provider] -
--- NOTE | 2024-03-31 15:07 | XRay Report ---
XR chest 1V portable HISTORY: Sepsis COMPARISON: Chest 12/12/2022. Abdomen and pelvis CT 03/13/2024. FINDINGS: No pneumothorax. No pleural effusions. The cardiac silhouette remains borderline enlarged. No evidence for pulmonary edema. Surgical clips seen within the right upper quadrant. No acute fractu res. There is bibasilar interstitial thickening with a hazy right base airspace opacity. This has pro gressed in the interval and favors a bibasilar pneumonitis. This could be due to aspiration. IMPRESSION: Interval progression of the bibasilar pneumonitis which could be due to aspiration. ACT 112: Negative or not required by law. Electronically signed by: Damion Doan M.D. 03/31/2024 3:06 PM
[2024-03-31] MEDS: SODIUM CHLORIDE 0.9% 500 ML IV ONE (15:11)
[2024-03-31 15:30] LABS: Basophils # (auto) 0.04 K/uL (0.00-0.20); Basophils % (auto) 0.4 %; Eosinophils # (auto) 0.06 K/uL (0.00-0.50); Eosinophils % (auto) 0.6 %; Hematocrit (blood only) 38.7 % (37.0-47.0); Immature Granulocytes # (auto) 0.07 K/uL (0.01-0.20); Immature Granulocytes % (auto) 0.7 %; Lymphocytes % (auto) 15.1 %; Mean Corpuscular Hemoglobin 27.7 pg (25.0-34.0); Mean Corpuscular Volume 89.4 fL (80.0-100.0); Mean Platelet Volume 9.3 fL (9.4-12.4); Monocytes # (auto) 0.67 K/uL (0.11-0.59); Monocytes % (auto) 6.3 %; Neutrophils # (auto) 8.19 K/uL (1.40-6.50); Neutrophils % (auto) 76.9 %; Platelet Count 387 K/uL (130-400); RDW Coefficient of Variation 14.6 % (11.5-14.5); RDW Standard Deviation 48.3 fL (36.4-46.3); Red Blood Count 4.33 M/uL (4.20-5.40); White Blood Count 10.63 K/ul (4.8-10.8)
[2024-03-31 15:47] LABS: Albumin Level 4.1 gm/dl (3.4-5.0); BUN Creatinine Ratio 23.6 (10-20); Bilirubin Direct 0.1 mg/dl (0-0.2); Bilirubin,Total 0.4 mg/dl (0.2-1.0); Calcium 9.6 mg/dl (8.6-10.3); Creatinine Clr Calc Pharmacy 26.1 ml/min; Est GFR (African American) 44.3 ml/min; Est GFR (Non-African American) 38.2 ml/min; Magnesium 2.1 mg/dl (1.7-2.4); Potassium 4.5 mmol/L (3.5-5.1); Total Protein 7.5 gm/dl (6.0-8.3)
[2024-03-31 15:53] LABS: Troponin I High Sensitivity 4.3 pg/ml (0-14)
[2024-03-31 16:18] LABS: Adenovirus PCR Not Detected (NotDetected); Bordetella parapertussis PCR Not Detected (NotDetected); Bordetella pertussis PCR Not Detected (NotDetected); Chlamydia pneumoniae PCR Not Detected (NotDetected); Coronavirus 229E PCR Not Detected (NotDetected); Coronavirus CoV-2 (COVID19)PCR Not Detected (NotDetected); Coronavirus HKU1 PCR Not Detected (NotDetected); Coronavirus NL63 PCR Not Detected (NotDetected); Coronavirus OC43PCR Not Detected (NotDetected); Human Metapneumovirus PCR Not Detected (NotDetected); Influenza A PCR Not Detected (NotDetected); Influenza B PCR Not Detected (NotDetected); Mycoplasma pneumoniae PCR Not Detected (NotDetected); Parainfluenza Virus 1 PCR Not Detected (NotDetected); Parainfluenza Virus 2 PCR Not Detected (NotDetected); Parainfluenza Virus 3 PCR Not Detected (NotDetected); Parainfluenza Virus 4 PCR Not Detected (NotDetected); Respiratory Syncytial VirusPCR Not Detected (NotDetected); Rhinovirus/Enterovirus PCR DETECTED (NotDetected)
--- NOTE | 2024-03-31 18:23 | History & Physical Report ---
Date of Service March 31, 2024 Assessment & Plan (1) Enterovirus infection: Plan: overall appears to be ill with a viral illnessher respiratory symptoms appear to be predominantly sinus mediatedshe does not have focal tenderness, but her breathing and cough certainly sound like most of it is being driven by postnasal drip. She does have a little bit of lung findings on exam and a little bit of lung findings on chest x-ray, but nothing appears fitting with bacterial (no fever no white count no elevated procalcitonin, and the overall milieu appears much more consistent with viral)supportive care, Afrin twice daily/Flonase twice daily, DuoNebs every 6 hours as needed. Hold off on antibiotics for now and followcertainly start antibiotics if a clear need arises, but agree with ER physician that it does not appear to be warranted at this time, and further a ntibiotics could certainly worsen her diarrhea. Diarrhea appears to be viral as well. Dehydration/JEANNETTE due to diarrhea as well as poor p.o. intake from being sickcontinue gentle IV fluids. DVT prophylaxis with Lovenox. Outpatient follow-up in regards to her cancer history. Admit to medical, she would like to be a DNR/DNI. History of Present Illness Chief Complaint: cough and diarrhea Primary Care Provider: NO PCP patient is a very pleasant 84-year-old female who presents after about a week of symptoms. Started on Mother's Day with a cough and sore throat. It progressed through the week to where she has a lot of congestion and cough with just about any exertion. The cough is wet and loose sometimes productive of yellow sputum. She feels easy fatigability and some degree of dyspnea on exertion, but has been able to recover with rest. Over the last day or 2, she has also started with diarrhea about 6 times a day yesterday 3 times today and then she took Imodium and that helped. Presented to the ER for further evaluation. Appeared to be quite weak, and borderline oxygenation's. We were asked to assume her care further. She lives alone and still worksshe works at [email or web address]. Allergies Allergy/AdvReac Type Severity Reaction Status Date / Time codeine AdvReac Unknown NAUSEA AND Verified 08/30/23 08:56 VOMITING Home Medications Medication Instructions Recorded Confirmed Type acetaminophen 500 mg tablet 500 mg PO Q6H PRN PAIN/FEVER 03/31/24 03/31/24 History Past Med/Surg History Problem List Hypoxemia (Acute) Enterovirus infection (Acute) Acute dehydration (Acute) Cough (Acute) Thoracic lymphadenopathy Right ankle pain Trochanteric bursitis of right hip Hand arthritis Rotator cuff syndrome of left shoulder Urinary incontinence Urgency of urination Total knee replacement status Arthritis (Acute) Cervical lymphadenopathy (Acute) Clear cell carcinoma of kidney (Acute) Nausea (Acute) Encounter for pre-operative examination Renal cell cancer (Chronic) Leg pain, right (Acute) Intractable abdominal pain Renal mass, right Medical History Emphysema lung emphysematous change per cxr Psoriasis Osteoarthritis Hx of renal cell cancer right s/p right nephrectomy (2018) Surgical History Hx of appendectomy History of right hip replacement Hx of cholecystectomy Hx of hysterectomy History of right nephrectomy right hand assisted laparoscopic nephrectomy: 02/21/18: Grade 2 view, MAC#[address] [facility] Family History Sister Diabetes Hypertension Lung cancer Denies family history of Myocardial infarction Colorectal cancer Cancer Social History Smoking Status: Former smoker Tobacco Type: Cigarettes Age Started Using Tobacco: 20; Age Quit Using Tobacco: 81; Cigarettes Per Day: 2-3 CIGARETTES/DAY; INTERMITTENT X SEVERAL YEARS; Second Hand Exposure: No; Do You Dip or Chew Tobacco: No; Hx Alcohol Use: No Hx Substance Use: No Preferred Language: [place] Leonean Communication Ability: Effective Visual Impairment: No Limitations Beliefs That Will Affect Care: None Current Living Situation: Alone Feels Safe at Home: Yes Assistive Devices: Walker Review of Systems Review of Systems: All systems reviewed & are unremarkable except as noted in HPI & below Physical Exam Physical Exam: In general she is awake and alert appears quite fatigued and often has very thick/wet sounding coughing fits but otherwise is in no distress, no obvious dyspnea or respiratory distress. HEENT normocephalic atraumatic mucous membranes slightly dry, pharynx does not appear to be overtly erythematous although exam is somewhat difficult. Sinuses do not show focal tenderness to palpation. Lungs are overall clear her right lung does show a little bit of scattered rhonchi overall good air movement no accessory muscle use no rales no wheezes good effort. Abdomen is soft nondistended nontender no masses org anomegaly. Extremities without cyanosis clubbing or edema no calf tenderness. Skin is dry. Mucous membranes slightly dry as well. neuro shows cranial nerves II through XII to be grossly intact gross motor and sensory intact Results & Data Results & Data Vital Signs (Past 12 Hours) Vital Signs Temp Pulse Pulse Resp BP BP Pulse Ox 03/31/24 17:02 98.1 F 79 22 119/86 91 03/31/24 17:00 80 22 119/86 95 03/31/24 16:30 76 24 123/63 92 03/31/24 16:00 70 22 133/70 95 03/31/24 15:34 71 03/31/24 15:30 73 24 102/55 L 95 03/31/24 15:17 70 22 131/61 95 03/31/24 15:15 70 14 131/85 96 03/31/24 15:12 70 18 98 03/31/24 15:00 70 18 134/68 98 03/31/24 14:18 99.3 F 95 H 20 119/65 91 O2 Del Method 03/31/24 17:02 Room Air 03/31/24 17:00 Room Air 03/31/24 16:30 Room Air 03/31/24 16:00 Room Air 03/31/24 15:34 03/31/24 15:30 Room Air 03/31/24 15:17 Room Air 03/31/24 15:15 Room Air 03/31/24 15:12 Room Air 03/31/24 15:00 Room Air 03/31/24 14:18 Room Air Code Status & VTE Plan VTE Prophylaxis Plan VTE Prophylaxis will be ordered: Yes PG Care Time/CCT Total # of Minutes Spent Total Time Spent with Patient: Total time spent is greater than 50% in coordination of care (as documented) at patient's floor/unit and/or counseling patient: Coding Level of Care Code 77574 INT INP/OBS CARE 2/55MIN Diagnoses Enterovirus infection B34.1
[2024-03-31] MEDS ORDERED: ALBUT/IPRATROP 3MG/0.5MG NEB 3 ML VIAL NEB PRN (20:31)
[2024-03-31] MEDS ORDERED: POLYETHYLENE (MIRALAX) 17 GM PACK PO PRN (20:31)
[2024-03-31] MEDS ORDERED: MAGNESIUM HYDROXIDE SUSP 30 ML UDC PO PRN (20:31)
[2024-03-31] MEDS: HEPARIN SOD 5,000 UNIT/0.5 ML VIAL SQ SCH (22:00)
[2024-03-31] MEDS: LACTATED RINGER'S 1,000 ML IV SCH (22:01)
[2024-03-31] MEDS: FLUTICASONE PROPIONATE NA SPR 16 GM BTL SCH (22:01)
[2024-03-31] MEDS: OXYMETAZOLINE 0.05% 30 ML BTL NAE SCH (22:01)
[2024-04-01 07:17] LABS: Basophils # (auto) 0.05 K/uL (0.00-0.20); Basophils % (auto) 0.6 %; Eosinophils # (auto) 0.16 K/uL (0.00-0.50); Eosinophils % (auto) 1.9 %; Hematocrit (blood only) 33.4 % (37.0-47.0); Hemoglobin 10.3 g/dl (12.0-16.0); Immature Granulocytes # (auto) 0.06 K/uL (0.01-0.20); Immature Granulocytes % (auto) 0.7 %; Lymphocytes # (auto) 1.83 K/uL (1.20-3.40); Lymphocytes % (auto) 22.3 %; Mean Corpuscular Hemoglobin 27.8 pg (25.0-34.0); Mean Corpuscular Hgb Conc 30.8 g/dL (32.0-36.0); Mean Corpuscular Volume 90.3 fL (80.0-100.0); Mean Platelet Volume 9.5 fL (9.4-12.4); Monocytes # (auto) 0.62 K/uL (0.11-0.59); Monocytes % (auto) 7.6 %; Neutrophils # (auto) 5.49 K/uL (1.40-6.50); Neutrophils % (auto) 66.9 %; Platelet Count 350 K/uL (130-400); RDW Coefficient of Variation 14.6 % (11.5-14.5); RDW Standard Deviation 48.8 fL (36.4-46.3); White Blood Count 8.21 K/ul (4.8-10.8)
[2024-04-01 07:36] LABS: BUN Creatinine Ratio 23.5 (10-20); Calcium 8.8 mg/dl (8.6-10.3); Creatinine Clr Calc Pharmacy 32.5 ml/min; Est GFR (African American) 57.7 ml/min; Est GFR (Non-African American) 49.8 ml/min; Potassium 4.2 mmol/L (3.5-5.1)
[2024-04-01] MEDS ORDERED: Nursing to Pharmacy Communication SCH (09:30)
[2024-04-01] MEDS: ALBUT/IPRATROP 3MG/0.5MG NEB 3 ML VIAL NEB SCH (11:20)
[2024-04-01] MEDS: AMOXICILLIN/CLAVULANATE 875 MG TAB PO SCH (11:45)
--- NOTE | 2024-04-01 13:39 | Hospitalist Progress Note ---
Date of Service April 01, 2024 Assessment & Plan (1) Cough: Plan: 84F with a PMH of renal cell carcinoma who presented with cough and diarrhea. - The cough started more than one month ago before the viral symptoms, has been getting progressively worse, and is productive. - Today, her O2 sat was 96 on 2 L. It was 87% while sleeping on room air last night. - She has a PMH of renal cell carcinoma with a hand assisted laparoscopic nephrectomy (grade 2 pt3 pN0). She did not receive adjuvant chemotherapy. Most common area for kidney cancer metastasis is lungs. - Differentials for cough include enterovirus, metastatic renal cell carcinoma, enterovirus superimposed on metastatic renal cell carcinoma, and a bacterial infection of the lungs superimposed on a viral infection. - Patients viral panel was positive for entero/rhino. On her chest x-ray/exam, nothing appeared fitting with bacteria. There was no fever, elevated white count, elevated procalcitonin. - In terms of differential of metastatic rcc, CT of the chest on 03/01/23 showed enlarged mediastinal hilar lymph nodes along with several subcentimeter pulmonary nodules. - PET scan on 04/05/23 was highly suspicious for metastatic disease. - Abdomen/Pelvis CT on 03/13/24 showed that a L5 sclerotic lesion previously described as suspicious for metastasis has slightly increased in size. A chest CT on 03/13/24 showed an increase in mediastinal and bilateral hilar lymph nodes as well as the right upper lobe nodule/bronchial lymph node consistent with progressive metastatic disease; stable 7 mm ground-glass nodule within the right lower lobe. - Patient has seen pulmonology and oncology. She is not interested in an endobronchial ultrasound, cervical lymph node biopsy, or undergoing therapy for this. She prefers observation because quality of life is very important to her. Plan: - Afrin twice daily, flonase twice daily, DuoNebs every 6 hours as needed. - Start Augmentin 875 mg 1 tab PO BID due to possibility of bacterial infection superimposed on viral infection. Patient's cough has lasted more than 1 month. - Continue to monitor O2 saturations. - Patient to follow-up outpatient with oncology. However, not interested in any interventions for possible metastatic disease. (2) Diarrhea: Plan: - Acute, uncontrolled - On 03/30, patient started to have diarrhea. On 03/30, it was roughly 6 times a day and on 03/31, roughly 3 times a day. On 03/31, she took a good amount of Immodium and that seemed to help. - She does not report any blood or black colors in her stool. - She does not report any known sick exposures but does work at [employer], where she could be exposed. - She has no recent history of antibiotic use. - Patient's BioFire was positive for enter/rhino. - On admission, patient's lab work was indicative of acute kidney injury potentially due to diarrhea and dehydration. Today, BUN was decreased from 30 on 03/31 to 24. Creatinine was decreased from 1.27 on 03/31 to 1.02 today. Plan: - Continue gentle IV fluids. - Continue to encourage patient to hydrate. - DVT prophylaxis with heparin. (3) Renal cell cancer: Plan: - Chronic - She has a PMH of renal cell carcinoma with a hand assisted laparoscopic nephrectomy (grade 2 pt3 pN0). She did not receive adjuvant chemotherapy. - PET scan on 04/05/23 was highly suspicious for metastatic disease. However, patient is not interested in endobronchial ultrasound, cervical lymph node biopsy, or undergoing therapy for this. Patient prefers observation. - Discussion had with patient about the possibility of metastasis. Plan: - Continue outpatient monitoring with oncology. Admission and Anticipated Discharge Date Admission Date: March 31, 2024 Supervising Physician Co-Signing Physician Notes I personally examined the patient and verified all dubois points of history and exam, discussed case, and agree with decision making with Jeffrey SCOTT and Dr Altman feeling better but still needing O2. still fairly weak. no new complaints though vitals noted nad heent nc at mmm breathing unlabored no accessory muscles good effort skin no rashes no pallor or icterus neuro no focal deficits enterovirus infection/ enteritis - GI sx improving. on re-review of HPI cough for ~4wks before sudden worsening about a week ago - suspicious for bacterial overgrowth pneumonia - would be typical / RLL - start augmentin. continue supportive care. hopefully home soon. Subjective 84F with a PMH of clear cell carcinoma of kidney s/p a right nephrectomy, osteoarthritis, psoriasis, and urinary incontinence who presented to the [facility] ED on 03/31 with a chief concern of cough and diarrhea for a week. She reports that her cough started over a month ago and has been productive of yellow sputum. She does not report any hemoptysis with the cough, but does report that the yellow sputum sometimes makes her vomit. She does not report coffee-ground emesis. The patient reports that the cough has been getting worse, is associated with SOB and dyspnea with exertion, and that nothing seems to make it better, except for rest. On Day, she started to also have a sore throat, a fever, and c ongestion. The fever lasted a couple of days. She also reports easy fatigability. Over the last few days, she has had diarrhea. On 03/30, it was roughly 6 times a day and on 03/31, roughly 3 times a day. On 03/31, she took a good amount of Immodium and that seemed to help. She does not report any blood or black colors in her stool. She does not report any known sick exposures but does work at [employer]. She has no recent history of antibiotic use. When she presented to the ER for evaluation on 03/31, she had borderline oxygenations (hypoxemic with O2 sat of 91-92 when resting). She was given a normal saline bolus. BioFire was ordered and entero/rhino virus was detected. Due to the potential diagnosis of a viral illness, the patient was started on Afrin twice daily, flonase twice daily, and DuoNebs every 6 hours as needed. Due to diarrhea/poor PO intake, gentle IV fluids were continued. Today, the patient reports that her primary concern is her productive cough. She does not report any fevers or chills. She reports that she has not had any diarrhea today and that she was able to eat breakfast. Patient reports that this sickness is mildly similar to a year or so ago when she had a cold that developed into pneumonia. The patient is very interested in going home today. She does live alone but reports that she is able to take care of herself. Review of Systems Review of Systems: Negative aside from what was listed in HPI. Physical Exam Physical Exam: General: Well developed, well-nourished older female who is coughing frequently but otherwise in no acute distress HEENT: Extraocular movements are intact. Oropharynx is pink with moist mucous membranes. No swelling of the mouth, lips, or tongue. Neck: Supple with a midline trachea. No meningeal signs or stiffness, no JVD or bruits. No stridor. Chest: Expiratory wheezing, productive coughing, no increased work of breathing. Heart: RRR; no murmurs, rubs, or gallops. Abdomen: Soft, nontender, nondistended without rebound guarding or rigidity. Extremities: No cyanosis, clubbing, or edema. No calf tenderness or asymmetry. Spine/Back. Non-tender to palpation. No CVA tenderness. Skin: Good turgor without rashes. Results & Data Results & Data Vital Signs (Past 12 Hours) Vital Signs Temp Pulse Pulse Pulse Pulse Resp Resp 04/01/24 11:46 90 88 60 24 04/01/24 11:20 61 18 04/01/24 08:00 04/01/24 07:21 36.7 C 60 16 Resp Resp BP Pulse Ox Pulse Ox Pulse Ox Pulse Ox 04/01/24 11:46 24 18 91 84 L 92 04/01/24 11:20 98 04/01/24 08:00 04/01/24 07:21 129/72 96 O2 Del Method O2 Flow Rate O2 Flow Rate 04/01/24 11:46 2 04/01/24 11:20 Nasal Cannula 2 04/01/24 08:00 Nasal Cannula 2 04/01/24 07:21 Nasal Cannula 2
[2024-04-01 15:07] LABS: Appearance Urine Clear (Clear); Bacteria Urine Automated None Seen (None Seen); Bilirubin Urine Negative (Negative); Blood Urine 1+ (Negative); Cast Urine Automated 0-2 /lpf (0-2); Color Urine Yellow; Epithelial Cell Urine Auto 0-2 /hpf (0-2); Glucose Urine UA Negative (Negative); Ketones Urine Negative (Negative); Leukocyte Esterase Urine Negative (Negative); Nitrite Urine Negative (Negative); Protein Urine Negative (Negative); RBC Urine Automated 0-2 /hpf (0-2); Specific Gravity Urine 1.016 (1.000-1.030); Urobilinogen Urine Negative (Negative); WBC Urine Automated 0-5 /hpf (0-5); pH Urine 5.5 (4.5-7.5)
--- NOTE | 2024-04-01 15:46 | Electrocardiogram Report ---
Test Reason : Blood Pressure : / mmHG Vent. Rate : 073 BPM Atrial Rate : 073 BPM P-R Int : 162 ms QRS Dur : 072 ms QT Int : 382 ms P-R-T Axes : 033 073 073 degrees QTc Int : 420 ms Normal sinus rhythm Normal ECG When compared with ECG of 19-MAY-2019 11:40, Vent. rate has increased BY 25 BPM Nonspecific T wave abnormality now evident in Anterior leads Confirmed by Royce Morejon ([id number]) on 04/01/2024 3:46:24 PM Referred By: REFERRED SELF Confirmed By:Royce Morejon
--- NOTE | 2024-04-01 18:57 | Billing Data ---
Date of Service April 01, 2024 Coding Level of Care Code 49575 SUB INP/OBS CARE
[2024-04-01] MEDS ORDERED: COUGH DROP (SUGAR FREE) LOZ 24 LOZ/1 BOX BUCCAL PRN (20:56)
[2024-04-01] MEDS: BENZONATATE 100 MG CAPSULE PO PRN (21:22)
[2024-04-02] MEDS: ACETAMINOPHEN 500 MG TAB PO PRN (05:09)
[2024-04-02 07:47] LABS: Basophils # (auto) 0.04 K/uL (0.00-0.20); Basophils % (auto) 0.5 %; Eosinophils # (auto) 0.13 K/uL (0.00-0.50); Eosinophils % (auto) 1.7 %; Hematocrit (blood only) 32.8 % (37.0-47.0); Hemoglobin 10.3 g/dl (12.0-16.0); Immature Granulocytes # (auto) 0.06 K/uL (0.01-0.20); Immature Granulocytes % (auto) 0.8 %; Lymphocytes % (auto) 14.6 %; Mean Corpuscular Hemoglobin 28.1 pg (25.0-34.0); Mean Corpuscular Hgb Conc 31.4 g/dL (32.0-36.0); Mean Corpuscular Volume 89.6 fL (80.0-100.0); Mean Platelet Volume 9.5 fL (9.4-12.4); Monocytes # (auto) 0.56 K/uL (0.11-0.59); Monocytes % (auto) 7.4 %; Neutrophils # (auto) 5.63 K/uL (1.40-6.50); Platelet Count 345 K/uL (130-400); RDW Coefficient of Variation 14.6 % (11.5-14.5); RDW Standard Deviation 47.8 fL (36.4-46.3); Red Blood Count 3.66 M/uL (4.20-5.40); White Blood Count 7.52 K/ul (4.8-10.8)
[2024-04-02 08:15] LABS: Albumin Globulin Ratio 1.1 (0.9-2); Albumin Level 3.2 gm/dl (3.4-5.0); BUN Creatinine Ratio 20.6 (10-20); Bilirubin,Total 0.4 mg/dl (0.2-1.0); Calcium 8.8 mg/dl (8.6-10.3); Creatinine Clr Calc Pharmacy 34.1 ml/min; Est GFR (African American) 61.3 ml/min; Est GFR (Non-African American) 52.9 ml/min; Globulin 2.9 gm/dl (2.5-4.0); Magnesium 1.9 mg/dl (1.7-2.4); Potassium 4.5 mmol/L (3.5-5.1); Total Protein 6.1 gm/dl (6.0-8.3)
--- NOTE | 2024-04-02 13:25 | Hospitalist Progress Note ---
Date of Service April 02, 2024 Assessment & Plan (1) Cough: Plan: 84F with a PMH of renal cell carcinoma who presented with cough and diarrhea. - Differentials for cough include enterovirus, metastatic renal cell carcinoma, enterovirus superimposed on metastatic renal cell carcinoma, and a bacterial infection of the lungs superimposed on a viral infection. - viral panel was positive for entero/rhino. - In terms of differential of metastatic rcc, CT of the chest on 03/01/23 showed enlarged mediastinal hilar lymph nodes along with several subcentimeter pulmonary nodules. - PET scan on 04/05/23 was highly suspicious for metastatic disease. - Abdomen/Pelvis CT on 03/13/24 showed that a L5 sclerotic lesion previously described as suspicious for metastasis has slightly increased in size. A chest CT on 03/13/24 showed an increase in mediastinal and bilateral hilar lymph nodes as well as the right upper lobe nodule/bronchial lymph node consistent with progressive metastatic disease; stable 7 mm ground-glass nodule within the right lower lobe. - Patient has seen pulmonology and oncology. She is not interested in an endobronchial ultrasound, cervical lymph node biopsy, or undergoing therapy for this. Plan: - Afrin twice daily, Flonase twice daily, DuoNebs every 6 hours as needed. - Start Augmentin 875 mg 1 tab PO BID due to possibility of bacterial infection superimposed on viral infection given duration of symptoms - Continue to monitor O2 saturations. - Patient to follow-up outpatient with oncology. However, not interested in any interventions for possible metastatic disease. - Still requiring 2L NC with activity (2) Diarrhea: Plan: - Diarrhea on admission, improving - JEANNETTE in the setting of dehydration, resolved (3) Renal cell cancer: Plan: - Chronic - She has a PMH of renal cell carcinoma with a hand assisted laparoscopic nephrectomy (grade 2 pt3 pN0). She did not receive adjuvant chemotherapy. - PET scan on 04/05/23 was highly suspicious for metastatic disease. However, patient is not interested in endobronchial ultrasound, cervical lymph node biopsy, or undergoing therapy for this. Patient prefers observation. - Discussion had with patient about the possibility of metastasis. Plan: - Continue outpatient monitoring with oncology. Plan Diet: Full VTE Prophylaxis: SubQ Heparin Code: DNR/DNI Admission and Anticipated Discharge Date Admission Date: March 31, 2024 Supervising Physician Co-Signing Physician Notes I personally examined the patient and verified all dubois points of history and exam, discussed case, and agree with decision making with Jeffrey SCOTT and Dr Altman slowly feeling better. Oxygen requirements decreasing a little. Still has a cough but seems to be maybe slightly less. Thinks the Augmentin was upsetting her stomach. Notes that she had not heard from oncology about her CTs from 3 weeks ago. We reviewed in depth together. vitals noted nad heent nc at mmm breathing unlabored no accessory muscles good effort skin no rashes no pallor or icterus neuro no focal deficits enterovirus infection/ enteritis - Suspect she did have a secondary bacterial pneumonia and had her on Augmentinshe does appear to be improving, I suspect the Augmentin was helping the infection, but I am also a little worried it is what is upsetting her stomachfor now changed to Unasyn, can send her home on different p.o. antibiotics similar coverage. Presumed metastatic renal cancerdiscussed mild progression of essentially all findings on her CTs from 3 weeks ago compared to a year prior. Discussed implications and possible treatment options, and obviously will want her to discuss with oncology further. At the same time we also discussed given the fairly slow progression and her advanced age, it is not unreasonable to consider foregoing treatment given the uncertainties of how she may or may not respond DVT proph - heparin SQ Subjective No events overnight, no complaints this morning. Overall feeling better, still requiring 2L NC with activity. Review of Systems Review of Systems: As per above Physical Exam Physical Exam: Constitutional: well-appearing, no acute distress HEENT: NCAT, no conjunctival injection CV: regular rhythm, no murmur appreciated, extremities well-perfused Resp: +rhonchi in bases, no wheezing no increased work of breathing GI: soft, nondistended, nontender MSK: no gross deformities appreciated Skin: warm, dry, no rash appreciated Neuro: alert, oriented, no focal neurologic deficit appreciated Results & Data Results & Data Vital Signs (Past 12 Hours) Vital Signs Temp Pulse Resp BP Pulse Ox O2 Del Method O2 Flow Rate 04/02/24 10:57 65 20 96 Nasal Cannula 2 04/02/24 08:10 Nasal Cannula 1 04/02/24 07:40 77 18 96 Nasal Cannula 2 04/02/24 07:03 36.9 C 55 L 16 112/62 96 Nasal Cannula 2 Resident Activity Tracking Resident Involvement: Resident Care Provided Care Provided: [facility]
[2024-04-02] MEDS: ONDANSETRON INJ 2 MG/ML 2 ML VIAL IV PRN (14:11)
--- NOTE | 2024-04-02 18:06 | Billing Data ---
Date of Service April 02, 2024 Coding Level of Care Code 05129 SUB INP/OBS CARE
[2024-04-02] MEDS: AMPICILLIN SOD/SULBACTAM SOD 1,500 MG in SODIUM CHLOR 0.9% MINI-B 100 ML IV SCH (20:51)
--- NOTE | 2024-04-03 14:37 | Hospitalist Progress Note ---
Date of Service April 03, 2024 Assessment & Plan (1) Cough: Plan: 84F with a PMH of renal cell carcinoma who presented with cough and diarrhea. - Differentials for cough include enterovirus, metastatic renal cell carcinoma, enterovirus superimposed on metastatic renal cell carcinoma, and a bacterial infection of the lungs superimposed on a viral infection. - viral panel was positive for entero/rhino. - In terms of differential of metastatic rcc, CT of the chest on 03/01/23 showed enlarged mediastinal hilar lymph nodes along with several subcentimeter pulmonary nodules. - PET scan on 04/05/23 was highly suspicious for metastatic disease. - Abdomen/Pelvis CT on 03/13/24 showed that a L5 sclerotic lesion previously described as suspicious for metastasis has slightly increased in size. A chest CT on 03/13/24 showed an increase in mediastinal and bilateral hilar lymph nodes as well as the right upper lobe nodule/bronchial lymph node consistent with progressive metastatic disease; stable 7 mm ground-glass nodule within the right lower lobe. - Patient has seen pulmonology and oncology. She is not interested in an endobronchial ultrasound, cervical lymph node biopsy, or undergoing therapy for this. Plan: - Afrin twice daily, Flonase twice daily, DuoNebs every 6 hours as needed. - Some concern for GI upset with Augmentin-> switch to Unasyn - Continue to monitor O2 saturations. - Patient to follow-up outpatient with oncology. However, not interested in any interventions for possible metastatic disease. -On room air, hope for d/c tomorrow (2) CAP (community acquired pneumonia): Plan: Antibiotics as per above (3) Diarrhea: Plan: - Diarrhea on admission, improving - JEANNETTE in the setting of dehydration, resolved (4) Renal cell cancer: Plan: - Chronic - She has a PMH of renal cell carcinoma with a hand assisted laparoscopic nephrectomy (grade 2 pt3 pN0). She did not receive adjuvant chemotherapy. - PET scan on 04/05/23 was highly suspicious for metastatic disease. However, patient is not interested in endobronchial ultrasound, cervical lymph node biopsy, or undergoing therapy for this. Patient prefers observation. - Discussion had with patient about the possibility of metastasis. Plan: - Continue outpatient monitoring with oncology. Plan Diet: Full VTE Prophylaxis: SubQ Heparin Code: DNR/DNI Admission and Anticipated Discharge Date Admission Date: April 02, 2024 Supervising Physician Co-Signing Physician Notes I personally examined the patient and verified all dubois points of history and exam, discussed case, and agree with decision making with Dr Altman feeling better. Nausea gone now that we switched away from oral Augmentin. Off of oxygen, walking around still feels fatigue but feeling better. Hopeful that she will feel up to getting home tomorrow. vitals noted nad heent nc at mmm breathing unlabored no accessory muscles good effort skin no rashes no pallor or icterus neuro no focal deficits enterovirus infection/ enteritis - Suspect she did have a secondary bacterial pneumonia and had her on Augmentinshe does appear to be improving, Switched from Augmentin to Unasyn so as to continue the same coverage but get away from the nauseathis seems to have helped. Probably home tomorrow on something such as cefdinir or cefpodoxime. Ongoing improvement. Presumed metastatic renal cancerdiscussed mild progression of essentially all findings on her CTs from 3 weeks ago compared to a year prior. Discussed implications and possible treatment options, and obviously will want her to discuss with oncology further. At the same time we also discussed given the fairly slow progression and her advanced age, it is not unreasonable to consider foregoing treatment given the uncertainties of how she may or may not respond DVT proph - heparin SQ Subjective No events overnight. Doing well today, overall feeling significantly better. Review of Systems Review of Systems: As per above Physical Exam Physical Exam: Constitutional: well-appearing, no acute distress HEENT: NCAT, no conjunctival injection CV: regular rhythm, no murmur appreciated, extremities well-perfused Resp: +rhonchi in bases, no wheezing no increased work of breathing GI: soft, nondistended, nontender MSK: no gross deformities appreciated Skin: warm, dry, no rash appreciated Neuro: alert, oriented, no focal neurologic deficit appreciated Results & Data Results & Data Vital Signs (Past 12 Hours) Vital Signs Temp Pulse Resp BP Pulse Ox O2 Del Method O2 Flow Rate 04/03/24 14:27 73 16 92 Room Air 04/03/24 14:10 37.5 C 76 16 131/67 91 Room Air 04/03/24 11:00 79 16 92 Room Air 04/03/24 10:10 92 Room Air 04/03/24 07:40 Nasal Cannula 1 04/03/24 07:17 74 20 96 Nasal Cannula 2 04/03/24 07:05 37.1 C 57 L 18 125/54 L 96 Nasal Cannula 2 Resident Activity Tracking Resident Involvement: Resident Care Provided Care Provided: Adult Hospital Medicine
--- NOTE | 2024-04-03 18:21 | Billing Data ---
Date of Service April 03, 2024 Coding Level of Care Code 92019 SUB INP/OBS CARE
--- NOTE | 2024-04-04 07:10 | Hospitalist Progress Note ---
Date of Service April 04, 2024 Assessment & Plan (1) Cough: Plan: 84F with a PMH of renal cell carcinoma who presented with cough and diarrhea. - DDx: enterovirus, progressing metastatic renal cell carcinoma, superimposed bacterial pneumonia - viral panel +entero/rhino. - cont. unasyn - augmentin gave her some GI upset - will need to transition to oral prior to discharge - cont. Afrin, Flonase, DuoNebs prn - added symbicort - still hypoxic on ambulation dropping into the low 80s - ordered CTA chest further evaluation (2) CAP (community acquired pneumonia): Plan: Antibiotics as above (3) Diarrhea: Plan: - on admission, improving - JEANNETTE in the setting of dehydration, resolved (4) Renal cell cancer: Plan: - Chronic. She has a PMH of renal cell carcinoma with a hand assisted laparoscopic nephrectomy (grade 2 pt3 pN0). She did not receive adjuvant chemotherapy. - H/o metastatic RCC - CT chest on 03/13/24 with progressive worsening - follows with pulmonology and oncology. She is not interested in an endobronchial ultrasound, cervical lymph node biopsy, or undergoing therapy for this. Plan Diet: Full VTE Prophylaxis: lovenox Code: DNR/DNI Admission and Anticipated Discharge Date Admission Date: April 02, 2024 Supervising Physician Co-Signing Physician Notes I personally examined the patient and verified all dubois points of history and exam, discussed case, and agree with decision making with Dr Xavier Feels well, but hypoxia persists. vitals noted nad heent nc at mmm breathing unlabored no accessory muscles good effort skin no rashes no pallor or icterus neuro no focal deficits enterovirus infection/ enteritis - with secondary bacterial pneumonia. It was puzzling as to why she was looking better and feeling better but still having significant hypoxia. Out of concern given her history of lung cancerrepeated chest CT (last done about 3 weeks ago for cancer purposes)fortunately no PE or cancer type progression, does show that her pneumonia is much larger than it appeared to be on chest x-ray. I suspect this is simply that it was not well- visualized on the chest x-ray, given that she is otherwise looking and feeling better I highly doubt this is a pneumonia that is continuing to progress in the face of treatment. It does, however, explain why her hypoxia has been so stubborn to improve. Ongoing incentive spirometry, add flutter valve, ambulation, continue Unasyn, time. Presumed metastatic renal cancer previously discussed mild progression of essentially all findings on her CTs from 3 weeks ago compared to a year prior. Discussed implications and possible treatment options, and obviously will want her to discuss with oncology further. At the same time we also discussed given the fairly slow progression and her advanced age, it is not unreasonable to consider foregoing treatment given the uncertainties of how she may or may not respond DVT proph - heparin SQ Subjective Seen at bedside this morning. Doing well. No acute changes. Review of Systems Review of Systems: All systems reviewed & are unremarkable except as noted in HPI & below Physical Exam Physical Exam: Constitutional: well-appearing, no acute distress HEENT: NCAT, no conjunctival injection CV: regular rhythm, no murmur appreciated, extremities well-perfused Resp: +rhonchi in bases but improving, no wheezing, no increased work of breathing GI: soft, nondistended, nontender Skin: warm, dry, no abnormal rashes Neuro: AOx3, no focal deficits Results & Data Results & Data Vital Signs (Past 12 Hours) Vital Signs Temp Pulse Resp BP Pulse Ox O2 Del Method O2 Flow Rate 04/04/24 06:43 93 Nasal Cannula 1 04/04/24 06:42 88 L Room Air 04/04/24 00:15 95 Nasal Cannula 2 04/03/24 20:51 36.9 C 88 137/70 87 L Room Air 04/03/24 20:40 Room Air 04/03/24 19:37 68 19 94 Room Air Resident Activity Tracking Resident Involvement: Resident Care Provided Care Provided: Adult Hospital Medicine
[2024-04-04] MEDS ORDERED: BUDESONIDE/FORMOTEROL FUMARATE 160/4.5 60 PUFFS/INHALER INH SCH (13:25)
[2024-04-04] MEDS: FLUTICASONE/VILANTEROL 200/25MCG 14 PUFFS/INHALER INH SCH (15:51)
[2024-04-04] MEDS: OPTIRAY 320 125ml IV ONE (17:23)
--- NOTE | 2024-04-04 17:46 | CT Scan Report ---
CT angio chest PE protocol CLINICAL HISTORY: persistent hypoxia, ?malignancy, PE? TECHNIQUE: Multidetector row helical CT of the chest was performed with angiographic protocol. Mckeon l and sagittal reformations were obtained. Coronal and sagittal MIPS were obtained from the axial willian a set and were submitted for review. Automated dose lowering techniques and/or adjustment according to patient size were utilized for this exam. CT DOSE: 305.88 mGy.cm Comparison: Comparison is made to CT chest 03/13/2024 FINDINGS: Lungs and pleura: Scattered groundglass and consolidative opacities are seen, favoring the lower lobe s, likely pneumonia with or without an element of atelectasis. Ovoid density in the right upper lobe (series 4 image 119) is unchanged from prior exam measuring 13 mm in length. Heart and pericardium: Heart size is normal. No pericardial effusion. Vessels: No evidence of pulmonary embolism. Mediastinum and rocio: Redemonstration of numerous enlarged mediastinal lymph nodes measuring up to 9 mm in the right lower paratracheal station. Chest wall and lower neck: Unremarkable. Abdomen: A hiatal hernia is seen. Bones: Degenerative changes in the thoracic spine. IMPRESSION: 1. Multifocal pneumonia, new from prior exam. 2. Ovoid density in the right upper lobe and mediastinal and bilateral hilar lymphadenopathy compati ble with metastatic disease. 3. No evidence of pulmonary embolus. ACT 112: Negative or not required by law. Electronically signed by: Michele Sadler M.D. 04/04/2024 5:44 PM
--- NOTE | 2024-04-04 18:45 | Billing Data ---
Date of Service April 04, 2024 Coding Level of Care Code 28489 SUB INP/OBS CARE
[2024-04-05 07:14] LABS: BUN Creatinine Ratio 17.6 (10-20); Calcium 8.8 mg/dl (8.6-10.3); Creatinine Clr Calc Pharmacy 32.5 ml/min; Est GFR (African American) 57.7 ml/min; Est GFR (Non-African American) 49.8 ml/min; Potassium 4.8 mmol/L (3.5-5.1)
[2024-04-05 07:29] LABS: Basophils # (auto) 0.09 K/uL (0.00-0.20); Eosinophils # (auto) 0.18 K/uL (0.00-0.50); Hematocrit (blood only) 33.2 % (37.0-47.0); Hemoglobin 10.6 g/dl (12.0-16.0); Immature Granulocytes # (auto) 0.16 K/uL (0.01-0.20); Immature Granulocytes % (auto) 1.8 %; Lymphocytes # (auto) 1.22 K/uL (1.20-3.40); Lymphocytes % (auto) 13.7 %; Mean Corpuscular Hemoglobin 28.3 pg (25.0-34.0); Mean Corpuscular Hgb Conc 31.9 g/dL (32.0-36.0); Mean Corpuscular Volume 88.8 fL (80.0-100.0); Mean Platelet Volume 9.2 fL (9.4-12.4); Monocytes # (auto) 0.58 K/uL (0.11-0.59); Monocytes % (auto) 6.5 %; Neutrophils # (auto) 6.68 K/uL (1.40-6.50); Platelet Count 356 K/uL (130-400); RDW Coefficient of Variation 14.7 % (11.5-14.5); RDW Standard Deviation 47.4 fL (36.4-46.3); Red Blood Count 3.74 M/uL (4.20-5.40); White Blood Count 8.91 K/ul (4.8-10.8)
--- NOTE | 2024-04-05 07:37 | Hospitalist Progress Note ---
Date of Service April 05, 2024 Assessment & Plan (1) Cough: Plan: 84F with a PMH of renal cell carcinoma who presented with cough and diarrhea. - DDx: enterovirus, progressing metastatic renal cell carcinoma, superimposed bacterial pneumonia - viral panel +entero/rhino. - cont. Afrin, Flonase, DuoNebs prn - cont. symbicort - with ongoing hypoxia - did get CTA chest which showed multifocal pneumonia which could be the same as seen on previous XR. However, cannot r/o new onset. She did spike a fever overnight so unclear if this was due to pneumonia vs atelectasis. Procal neg. Sputum/blood cx pending. MRSA nares pending. Changed unasyn to cefepime to cover for pseudomonas. (2) CAP (community acquired pneumonia): Plan: Antibiotics as above (3) Diarrhea: Plan: - JEANNETTE in the setting of dehydration, resolved (4) Renal cell cancer: Plan: - Chronic. She has a PMH of renal cell carcinoma with a hand assisted laparoscopic nephrectomy (grade 2 pt3 pN0). She did not receive adjuvant chemotherapy. - H/o metastatic RCC - CT chest on 03/13/24 with progressive worsening - follows with pulmonology and oncology. She is not interested in an endobronchial ultrasound, cervical lymph node biopsy, or undergoing therapy for this. Plan Diet: Full VTE Prophylaxis: lovenox Code: DNR/DNI Dispo: med surg Admission and Anticipated Discharge Date Admission Date: April 02, 2024 Supervising Physician Co-Signing Physician Notes I personally examined the patient and verified all dubois points of history and exam, discussed case, and agree with decision making with Dr Xavier Feels well, but hypoxia still persists. fever this AM. Family present from [facility], in the patient's presence, I updated them to the best my ability and answered all questions to their satisfaction. vitals noted nad heent nc at mmm breathing unlabored no accessory muscles good effort skin no rashes no pallor or icterus neuro no focal deficits enterovirus infection/ enteritis - with secondary bacterial pneumonia. CT yesterday showed pneumonia to be more extensive than initially thoughtwhich would certainly explain her prolonged hypoxia. Fever this morning has 2 main differentials that I can see: First, given that she otherwise looks and feels well, and her labs do not suggest ongoing infection, it is quite possible that she had a little bit of mucous plugging/atelectasis causing the fever; second, however, it is somewhat hard to rule out that she did not have intermediate bacteria/ polymicrobial bacteria and bacteria that were resistant to the Unasyn has started to overgrow (had not since the change to cefepime). Reassuringly though, she looks well other than her ongoing oxygen requirement Presumed metastatic renal cancer previously discussed mild progression of essentially all findings on her CTs from 3 weeks ago compared to a year prior. Discussed implications and possible treatment options, and obviously will want her to discuss with oncology further. At the same time we also discussed given the fairly slow progression and her advanced age, it is not unreasonable to consider foregoing treatment given the uncertainties of how she may or may not respond DVT proph - heparin SQ Subjective Seen at bedside this morning. Doing well. Spiked a fever overnight but she did not feel ill. Review of Systems Review of Systems: All systems reviewed & are unremarkable except as noted in HPI & below Physical Exam Physical Exam: Constitutional: well-appearing, no acute distress HEENT: NCAT, no conjunctival injection CV: regular rhythm, no murmur appreciated, extremities well-perfused Resp: CTAB, no wheezes/rales/rhonchi, no increased work of breathing GI: soft, nondistended, nontender Skin: warm, dry, no abnormal rashes Neuro: AOx3, no focal deficits Results & Data Results & Data Vital Signs (Past 12 Hours) Vital Signs Temp Pulse Resp BP Pulse Ox O2 Del Method O2 Flow Rate 04/05/24 07:28 67 20 96 Nasal Cannula 1 04/04/24 20:18 38.4 C H 75 16 124/69 94 Room Air 04/04/24 20:08 84 22 90 Nasal Cannula 1 04/04/24 20:05 Nasal Cannula 1 Laboratory Results 04/05/24 04/05/24 Range/Units 07:05 05:29 WBC 8.91 (4.8-10.8) K/ul RBC 3.74 L (4.20-5.40) M/uL Hgb 10.6 L (12.0-16.0) g/dl Hct 33.2 L (37.0-47.0) % MCV 88.8 (80.0-100.0) fL MCH 28.3 (25.0-34.0) pg MCHC 31.9 L (32.0-36.0) g/dL RDW Std Deviation 47.4 H (36.4-46.3) fL RDW Coeff of Ketty 14.7 H (11.5-14.5) % Plt Count 356 (130-400) K/uL MPV 9.2 L (9.4-12.4) fL Immature Gran % (Auto) 1.8 % Neut % (Auto) 75.0 % Lymph % (Auto) 13.7 % [place] % (Auto) 6.5 % Eos % (Auto) 2.0 % Baso % (Auto) 1.0 % Neut # (Auto) 6.68 H (1.40-6.50) K/uL Lymph # (Auto) 1.22 (1.20-3.40) K/uL [place] # (Auto) 0.58 (0.11-0.59) K/uL Eos # (Auto) 0.18 (0.00-0.50) K/uL Baso # (Auto) 0.09 (0.00-0.20) K/uL Immature Gran # (Auto) 0.16 (0.01-0.20) K/uL Sodium 134 L (136-145) mmol/L Potassium 4.8 (3.5-5.1) mmol/L Chloride 101 (98-107) mmol/L Carbon Dioxide 27 (21-32) mmol/L Anion Gap 6 (3-11) BUN 18 (6-23) mg/dl Creatinine 1.02 (0.6-1.2) mg/dl Est Cr Clr Drug Dosing 32.5 ml/min Est GFR ( Amer) 57.7 ml/min Est GFR (Non-Af Amer) 49.8 ml/min BUN/Creatinine Ratio 17.6 (10-20) Glucose 94 (70-99(Fasting)) mg/dl Calcium 8.8 (8.6-10.3) mg/dl Magnesium Pending Procalcitonin Pending Resident Activity Tracking Resident Involvement: Resident Care Provided Care Provided: Adult [facility]
[2024-04-05] MEDS: CEFEPIME 2,000 MG in SYRINGE 0 ML IV SCH (08:59)
--- NOTE | 2024-04-05 15:24 | Billing Data ---
Date of Service April 05, 2024 Coding Level of Care Code 74017 SUB INP/OBS CARE
[2024-04-06 05:47] LABS: Basophils % (auto) 1.1 %; Eosinophils # (auto) 0.31 K/uL (0.00-0.50); Eosinophils % (auto) 3.4 %; Hematocrit (blood only) 33.7 % (37.0-47.0); Hemoglobin 10.6 g/dl (12.0-16.0); Immature Granulocytes # (auto) 0.24 K/uL (0.01-0.20); Immature Granulocytes % (auto) 2.6 %; Lymphocytes # (auto) 1.48 K/uL (1.20-3.40); Lymphocytes % (auto) 16.2 %; Mean Corpuscular Hemoglobin 27.7 pg (25.0-34.0); Mean Corpuscular Hgb Conc 31.5 g/dL (32.0-36.0); Mean Platelet Volume 9.3 fL (9.4-12.4); Monocytes % (auto) 7.7 %; Neutrophils # (auto) 6.29 K/uL (1.40-6.50); Platelet Count 377 K/uL (130-400); RDW Coefficient of Variation 14.6 % (11.5-14.5); RDW Standard Deviation 46.7 fL (36.4-46.3); Red Blood Count 3.83 M/uL (4.20-5.40); White Blood Count 9.12 K/ul (4.8-10.8)
[2024-04-06 06:00] LABS: BUN Creatinine Ratio 20.8 (10-20); Calcium 8.9 mg/dl (8.6-10.3); Creatinine Clr Calc Pharmacy 34.5 ml/min; Est GFR (African American) 62.1 ml/min; Est GFR (Non-African American) 53.6 ml/min; Magnesium 2.1 mg/dl (1.7-2.4); Potassium 4.6 mmol/L (3.5-5.1)
--- NOTE | 2024-04-06 06:59 | Hospitalist Progress Note ---
Date of Service April 06, 2024 Assessment & Plan (1) Cough: Plan: 84F with a PMH of renal cell carcinoma who presented with cough and diarrhea. - DDx: enterovirus, progressing metastatic renal cell carcinoma, superimposed bacterial pneumonia - viral panel +entero/rhino. - cont. Afrin, Flonase, DuoNebs prn, symbicort - incentive spirometry, flutter valve - with ongoing hypoxia - did get CTA chest which showed multifocal pneumonia which could be the same as seen on previous XR. However, cannot r/o new onset. She did spike a fever again overnight so unclear if this was due to pneumonia vs atelectasis. Procal neg. Blood cx NGTD. Sputum cx pending. MRSA nares neg. Cont. cefepime to cover for pseudomonas. Will add azithromycin for atypical/anti- inflammatory coverage. Will also add prednisone burst x5 days. (2) CAP (community acquired pneumonia): Plan: Antibiotics as above (3) Diarrhea: Plan: - JEANNETTE in the setting of dehydration, resolved (4) Renal cell cancer: Plan: - Chronic. She has a PMH of renal cell carcinoma with a hand assisted laparoscopic nephrectomy (grade 2 pt3 pN0). She did not receive adjuvant chemotherapy. - H/o metastatic RCC - CT chest on 03/13/24 with progressive worsening - follows with pulmonology and oncology. She is not interested in an endobronchial ultrasound, cervical lymph node biopsy, or undergoing therapy for this. Plan Diet: Full VTE Prophylaxis: lovenox Code: DNR/DNI Dispo: med surg Admission and Anticipated Discharge Date Admission Date: April 02, 2024 Supervising Physician Co-Signing Physician Notes I personally examined the patient and verified all dubois points of history and exam, discussed case, and agree with decision making with Dr Xavier Feeling well, still 89% on room air whenever I see her. Notes that she was in the mid 90s earlier though. vitals noted nad heent nc at mmm breathing unlabored no accessory muscles good effort skin no rashes no pallor or icterus neuro no focal deficits enterovirus infection/ enteritis - with secondary bacterial pneumonia. CT showed pneumonia to be more extensive than initially thoughtwhich would certainly explain her prolonged hypoxia. continue current antibiotics and pulmonary toilet. Anticipate ongoing improvementimprovement is probably slow simply due to the extensiveness of the pneumonia (once clearly delineated on CT) and her advanced age making her slower to improve. Presumed metastatic renal cancer previously discussed mild progression of essentially all findings on her CTs from 3 weeks ago compared to a year prior. Discussed implications and possible treatment options, and obviously will want her to discuss with oncology further. At the same time we also discussed given the fairly slow progression and her advanced age, it is not unreasonable to consider foregoing treatment given the uncertainties of how she may or may not respondWill need to inform oncology when she is finally discharged given that her appointment was I believe missed due to her hospital stay DVT proph - heparin SQ Subjective Seen at bedside this morning. Doing well. Spiked a fever again overnight but she did not feel ill. Walking to the bathroom this morning she did desaturate to mid 80s. Review of Systems Review of Systems: All systems reviewed & are unremarkable except as noted in HPI & below Physical Exam Physical Exam: Constitutional: well-appearing, no acute distress HEENT: NCAT, no conjunctival injection CV: regular rhythm, no murmur appreciated, extremities well-perfused Resp: +wheezing and +rhonchi bibasilar lungs, no increased work of breathing GI: soft, nondistended, nontender Skin: warm, dry, no abnormal rashes Neuro: AOx3, no focal deficits Results & Data Results & Data Vital Signs (Past 12 Hours) Vital Signs Temp Pulse Resp BP Pulse Ox O2 Del Method O2 Flow Rate 04/06/24 06:07 37.6 C H 04/05/24 19:50 Nasal Cannula 1 04/05/24 19:38 73 18 97 Nasal Cannula 1 04/05/24 19:28 38.0 C H 16 131/70 93 Room Air Laboratory Results 04/06/24 04/05/24 04/05/24 Range/Units 05:12 11:30 07:05 WBC 9.12 (4.8-10.8) K/ul RBC 3.83 L (4.20-5.40) M/uL Hgb 10.6 L (12.0-16.0) g/dl Hct 33.7 L (37.0-47.0) % MCV 88.0 (80.0-100.0) fL MCH 27.7 (25.0-34.0) pg MCHC 31.5 L (32.0-36.0) g/dL RDW Std Deviation 46.7 H (36.4-46.3) fL RDW Coeff of Ketty 14.6 H (11.5-14.5) % Plt Count 377 (130-400) K/uL MPV 9.3 L (9.4-12.4) fL Immature Gran % (Auto) 2.6 % Neut % (Auto) 69.0 % Lymph % (Auto) 16.2 % [place] % (Auto) 7.7 % Eos % (Auto) 3.4 % Baso % (Auto) 1.1 % Neut # (Auto) 6.29 (1.40-6.50) K/uL Lymph # (Auto) 1.48 (1.20-3.40) K/uL [place] # (Auto) 0.70 H (0.11-0.59) K/uL Eos # (Auto) 0.31 (0.00-0.50) K/uL Baso # (Auto) 0.10 (0.00-0.20) K/uL Immature Gran # (Auto) 0.24 H (0.01-0.20) K/uL Sodium 132 L (136-145) mmol/L Potassium 4.6 (3.5-5.1) mmol/L Chloride 101 (98-107) mmol/L Carbon Dioxide 26 (21-32) mmol/L Anion Gap 5 (3-11) BUN 20 (6-23) mg/dl Creatinine 0.96 (0.6-1.2) mg/dl Est Cr Clr Drug Dosing 34.5 ml/min Est GFR ( Amer) 62.1 ml/min Est GFR (Non-Af Amer) 53.6 ml/min BUN/Creatinine Ratio 20.8 H (10-20) Glucose 99 (70-99(Fasting)) mg/dl Calcium 8.9 (8.6-10.3) mg/dl Magnesium 2.1 (1.7-2.4) mg/dl Procalcitonin 0.07 (0-0.5) ng/ml Nasal Screen MRSA (PCR) Negative (Negative) Resident Activity Tracking Resident Involvement: Resident Care Provided Care Provided: Adult Hospital Medicine
[2024-04-06] MEDS: AZITHROMYCIN 500 MG in DEXTROSE 5% 250 ML IV ONE (10:54)
[2024-04-06] MEDS: predniSONE 20 MG TAB PO STA (13:21)
--- NOTE | 2024-04-06 16:48 | Billing Data ---
Date of Service April 06, 2024 Coding Level of Care Code 11712 SUB INP/OBS CARE
[2024-04-06] MEDS ORDERED: ALBUTEROL 0.083% NEBU SOLN 3 ML VIAL NEB PRN (21:32)
[2024-04-07 06:18] LABS: Basophils # (auto) 0.06 K/uL (0.00-0.20); Basophils % (auto) 0.5 %; Eosinophils # (auto) 0.01 K/uL (0.00-0.50); Eosinophils % (auto) 0.1 %; Hematocrit (blood only) 33.7 % (37.0-47.0); Hemoglobin 10.9 g/dl (12.0-16.0); Immature Granulocytes # (auto) 0.34 K/uL (0.01-0.20); Immature Granulocytes % (auto) 2.9 %; Lymphocytes # (auto) 1.44 K/uL (1.20-3.40); Lymphocytes % (auto) 12.1 %; Mean Corpuscular Hemoglobin 28.5 pg (25.0-34.0); Mean Corpuscular Hgb Conc 32.3 g/dL (32.0-36.0); Mean Platelet Volume 9.5 fL (9.4-12.4); Monocytes % (auto) 4.2 %; Neutrophils # (auto) 9.55 K/uL (1.40-6.50); Neutrophils % (auto) 80.2 %; Platelet Count 383 K/uL (130-400); RDW Coefficient of Variation 14.5 % (11.5-14.5); RDW Standard Deviation 46.3 fL (36.4-46.3); Red Blood Count 3.83 M/uL (4.20-5.40)
[2024-04-07 06:31] LABS: BUN Creatinine Ratio 29.7 (10-20); Calcium 8.9 mg/dl (8.6-10.3); Creatinine Clr Calc Pharmacy 36.4 ml/min; Est GFR (African American) 66.2 ml/min; Est GFR (Non-African American) 57.1 ml/min; Magnesium 2.2 mg/dl (1.7-2.4); Potassium 4.8 mmol/L (3.5-5.1)
--- NOTE | 2024-04-07 06:46 | Hospitalist Progress Note ---
Date of Service April 07, 2024 Assessment & Plan (1) Cough: Plan: 84F with a PMH of renal cell carcinoma who presented with cough and diarrhea. - DDx: enterovirus, progressing metastatic renal cell carcinoma, superimposed bacterial pneumonia - viral panel +entero/rhino. - cont. Afrin, Flonase, DuoNebs prn, symbicort - incentive spirometry, flutter valve - with ongoing hypoxia - did get CTA chest which showed multifocal pneumonia which could be the same as seen on previous XR. However, cannot r/o new onset. She did spike a fever again overnight so unclear if this was due to pneumonia vs atelectasis. Procal neg. Blood cx NGTD. Sputum cx pending. MRSA nares neg. Cont. cefepime to cover for pseudomonas. - Continue azithromycin for atypical/anti-inflammatory coverage - Continue prednisone burst x5 days. - still some dyspnea/desaturations with ambulation (2) CAP (community acquired pneumonia): Plan: Antibiotics as above (3) Diarrhea: Plan: - JEANNETTE in the setting of dehydration, resolved (4) Renal cell cancer: Plan: - Chronic. She has a PMH of renal cell carcinoma with a hand assisted laparoscopic nephrectomy (grade 2 pt3 pN0). She did not receive adjuvant chemotherapy. - H/o metastatic RCC - CT chest on 03/13/24 with progressive worsening - follows with pulmonology and oncology. She is not interested in an endobronchial ultrasound, cervical lymph node biopsy, or undergoing therapy for this. Plan Diet: Full VTE Prophylaxis: lovenox Code: DNR/DNI Dispo: med surg Admission and Anticipated Discharge Date Admission Date: April 02, 2024 Supervising Physician Co-Signing Physician Notes Attending Physician Supervision Note: I independently interviewed and examined the patient and verified the dubois history and physical, reviewed labs and image studies and agree with findings and care plan noted above. Enterovirus infection with pneumonia and enteritis CT with extensive pneumonia. Normal procalcitonin level. Negative sputum and blood culture -Continue prednisone -consider discontinuing antibiotic -Pulmonary toilet Renal cell cancer with presumed metastasis - per CT scan findings -Outpatient oncology follow-up DVT proph - heparin SQ Subjective No event overnight. Doing well this morning. Good PO intake. Still having productive cough. Review of Systems Review of Systems: As per above Physical Exam Physical Exam: Constitutional: well-appearing, no acute distress HEENT: NCAT, no conjunctival injection CV: regular rhythm, no murmur appreciated, extremities well-perfused Resp: +rhonchi in bases, no wheezing no increased work of breathing GI: soft, nondistended, nontender MSK: no gross deformities appreciated Skin: warm, dry, no rash appreciated Neuro: alert, oriented, no focal neurologic deficit appreciated Results & Data Results & Data Vital Signs (Past 12 Hours) Vital Signs Temp Pulse Resp BP Pulse Ox O2 Del Method O2 Flow Rate 04/07/24 00:40 98 Nasal Cannula 2 04/06/24 21:33 62 20 90 Room Air 04/06/24 20:15 Room Air 04/06/24 19:49 36.7 C 61 16 134/75 97 Room Air 04/06/24 19:40 65 18 95 Room Air
[2024-04-07] MEDS: AZITHROMYCIN 250 MG in DEXTROSE 5% 250 ML IV SCH (08:35)
[2024-04-07] MEDS: predniSONE 20 MG TAB PO SCH (08:58)
[2024-04-07] MEDS: ALUMINUM/MAGNESIUM SUSP 30 ML UDC PO PRN (23:19)
[2024-04-08 07:16] LABS: Basophils # (auto) 0.09 K/uL (0.00-0.20); Basophils % (auto) 0.6 %; Eosinophils # (auto) 0.03 K/uL (0.00-0.50); Eosinophils % (auto) 0.2 %; Hematocrit (blood only) 35.2 % (37.0-47.0); Hemoglobin 11.3 g/dl (12.0-16.0); Immature Granulocytes # (auto) 0.33 K/uL (0.01-0.20); Immature Granulocytes % (auto) 2.2 %; Lymphocytes # (auto) 2.52 K/uL (1.20-3.40); Lymphocytes % (auto) 16.8 %; Mean Corpuscular Hemoglobin 27.8 pg (25.0-34.0); Mean Corpuscular Hgb Conc 32.1 g/dL (32.0-36.0); Mean Corpuscular Volume 86.7 fL (80.0-100.0); Mean Platelet Volume 9.5 fL (9.4-12.4); Monocytes # (auto) 0.79 K/uL (0.11-0.59); Monocytes % (auto) 5.3 %; Neutrophils # (auto) 11.25 K/uL (1.40-6.50); Neutrophils % (auto) 74.9 %; Platelet Count 468 K/uL (130-400); RDW Coefficient of Variation 14.7 % (11.5-14.5); Red Blood Count 4.06 M/uL (4.20-5.40); White Blood Count 15.01 K/ul (4.8-10.8)
[2024-04-08 07:55] LABS: BUN Creatinine Ratio 30.2 (10-20); Calcium 9.3 mg/dl (8.6-10.3); Creatinine Clr Calc Pharmacy 28.6 ml/min; Est GFR (African American) 49.4 ml/min; Est GFR (Non-African American) 42.6 ml/min; Magnesium 2.4 mg/dl (1.7-2.4); Potassium 4.2 mmol/L (3.5-5.1)
--- NOTE | 2024-04-08 10:57 | Hospitalist Progress Note ---
Date of Service April 08, 2024 Assessment & Plan (1) Cough: Plan: 84F with a PMH of renal cell carcinoma who presented with cough and diarrhea. - DDx: enterovirus, progressing metastatic renal cell carcinoma, superimposed bacterial pneumonia - viral panel +entero/rhino. - cont. Afrin, Flonase, DuoNebs prn, symbicort - incentive spirometry, flutter valve - with ongoing hypoxia - did get CTA chest which showed multifocal pneumonia which could be the same as seen on previous XR. However, cannot r/o new onset. She did spike a fever again overnight so unclear if this was due to pneumonia vs atelectasis. Procal neg. Blood cx NGTD. Sputum cx pending. MRSA nares neg. Cont. cefepime to cover for pseudomonas. - Continue azithromycin for atypical/anti-inflammatory coverage - Continue prednisone burst x5 days. - still some dyspnea/desaturations with ambulation (2) CAP (community acquired pneumonia): Plan: Antibiotics as above (3) Diarrhea: Plan: - JEANNETTE in the setting of dehydration, resolved (4) Renal cell cancer: Plan: - Chronic. She has a PMH of renal cell carcinoma with a hand assisted laparoscopic nephrectomy (grade 2 pt3 pN0). She did not receive adjuvant chemotherapy. - H/o metastatic RCC - CT chest on 03/13/24 with progressive worsening - follows with pulmonology and oncology. She is not interested in an endobronchial ultrasound, cervical lymph node biopsy, or undergoing therapy for this. Plan Diet: Full VTE Prophylaxis: lovenox Code: DNR/DNI Dispo: med surg Admission and Anticipated Discharge Date Admission Date: April 02, 2024 Review of Systems Review of Systems: As per above Physical Exam Physical Exam: Constitutional: well-appearing, no acute distress HEENT: NCAT, no conjunctival injection CV: regular rhythm, no murmur appreciated, extremities well-perfused Resp: +rhonchi in bases, no wheezing no increased work of breathing GI: soft, nondistended, nontender MSK: no gross deformities appreciated Skin: warm, dry, no rash appreciated Neuro: alert, oriented, no focal neurologic deficit appreciated Results & Data Results & Data Vital Signs (Past 12 Hours) Vital Signs Temp Pulse Resp BP Pulse Ox O2 Del Method 04/08/24 08:12 Room Air 04/08/24 07:29 78 16 92 Room Air 04/08/24 07:00 36.6 C 69 16 147/77 H 92 Room Air
--- NOTE | 2024-04-08 11:51 | Discharge Summary ---
Date of Service April 08, 2024 Admission HPI Per Admitting Provider patient is a very pleasant 84-year-old female who presents after about a week of symptoms. Started on Mother's Day with a cough and sore throat. It progressed through the week to where she has a lot of congestion and cough with just about any exertion. The cough is wet and loose sometimes productive of yellow sputum. She feels easy fatigability and some degree of dyspnea on exertion, but has been able to recover with rest. Over the last day or 2, she has also started with diarrhea about 6 times a day yesterday 3 times today and then she took Imodium and that helped. Presented to the ER for further evaluation. Appeared to be quite weak, and borderline oxygenation's. We were asked to assume her care further. She lives alone and still worksshe works at [employer]. Principal Diagnosis Pneumonia Discharge Exam Constitutional: well-appearing, no acute distress HEENT: NCAT, no conjunctival injection CV: regular rhythm, no murmur appreciated, extremities well-perfused Resp: +rhonchi in bases, no wheezing no increased work of breathing GI: soft, nondistended, nontender MSK: no gross deformities appreciated Skin: warm, dry, no rash appreciated Neuro: alert, oriented, no focal neurologic deficit appreciated Discharge Data Allergies Allergy/AdvReac Type Severity Reaction Status Date / Time codeine AdvReac Unknown NAUSEA AND Verified 08/30/23 08:56 VOMITING Consultations 03/31/24 17:53 ED Decision to Admit Stat Ordered Studies 04/04/24 13:39 CT angio chest PE protocol Urgent Hospital Course (1) Cough: 84F with a PMH of renal cell carcinoma who presented with cough and diarrhea. - DDx: enterovirus, progressing metastatic renal cell carcinoma, superimposed bacterial pneumonia - viral panel +entero/rhino. - cont. Afrin, Flonase, DuoNebs prn, symbicort - incentive spirometry, flutter valve - with ongoing hypoxia - did get CTA chest which showed multifocal pneumonia which could be the same as seen on previous XR. However, cannot r/o new onset. She did spike a fever again overnight so unclear if this was due to pneumonia vs atelectasis. Procal neg. Blood cx NGTD. treated with cefepime x 3 days - Continue azithromycin for atypical/anti-inflammatory coverage for a total of 5 days- additional 2 days of d/c - Continue prednisone burst x5 days.- additional 2 days on d/c (2) CAP (community acquired pneumonia): Antibiotics as above (3) Diarrhea: - JEANNETTE in the setting of dehydration, resolved (4) Renal cell cancer: - Chronic. She has a PMH of renal cell carcinoma with a hand assisted laparoscopic nephrectomy (grade 2 pt3 pN0). She did not receive adjuvant chemotherapy. - H/o metastatic RCC - CT chest on 03/13/24 with progressive worsening - follows with pulmonology and oncology. She is not interested in an endobronchial ultrasound, cervical lymph node biopsy, or undergoing therapy for this. Total Time Total Time Spent Total Time Spent (In Minutes): see attending attestation Discharge Plan Discharge Items Patient Disposition: Home - Self-Care Reason For Visit: VIRAL ILLNESS, JEANNETTE, HYPOXIA Discharge Diagnosis: pneumonia Activity: Per Instructions section Non-emergency contact: Primary Care Provider Call non-emergency contact if: you have any medication questions, your symptoms worsen and you have a fever Follow-up/Referrals: Yazmin Decker CRNP [Outside Practitioners] - 04/03/24 10:25 am Diet: Regular Addtl Attending Provider Instructions: You were admitted with enterovirus and it was found that you had a superimposed bacterial pneumonia. We are going to send you home with a steroid to help with some of the lung inflammation. You should take 40mg of prednisone in the morning for the next 2 days. We have been treating you with antibiotics. We are going to send you home with azithromycin. Your next dose will be due tomorrow morning and you should take it for the next 2 days. I also sent an albuterol inhaler which you can use as needed for cough or wheezing. You should follow up with oncology to discuss your recent CT scan and options moving forward. We got you an appointment to follow-up with [facility] with Dr. Altman at the [facility] office on 04/14 at 12:45. If you need to change the appointment time please give the office a call. Pending Studies at Discharge: No Stand-Alone Forms: [facility] Sm[facility] Cessation Medications and DC Order Prescriptions: New prednisone 20 mg Tablet 40 mg PO DAILY 2 Days Qty: 4 0RF albuterol sulfate 90 mcg/actuation HFA aerosol inhaler 1 inh inhalation Q6H PRN (Reason: shortness of breath or wheezing) Qty: 6.7 0RF azithromycin 250 mg tablet 250 mg PO DAILY 2 Days Qty: 2 0RF Rx Instructions: start on day 2 of therapy Continued acetaminophen 500 mg Tablet 500 mg PO Q6H PRN (Reason: PAIN/FEVER) Discharge Orders: Discharge Order (Routine); Ordered 04/08/24 Ordered By: Kaila Velasquez/Other Patient Handouts: Chest and Lung Problems, Infec Common Resp Prevention Admission Data Admit Date/Time: 04/02/24 18:06 Attending Provider: Velvet Blake Admit Provider: David Fatima Primary Care Provider: PCP,NO Other Providers: Blaise Garibay; David Fatima Other Interventions: Discharge Summary Assessment (RN) Last Done: 04/08/24 13:14 Supervising Physician Co-Signing Physician Notes Attending Physician Supervision Note: I independently interviewed and examined the patient and verified the dubois history and physical, reviewed labs and image studies and agree with findings and care plan noted above. Enterovirus infection with pneumonia and enteritis CT with extensive pneumonia. Normal procalcitonin level. Negative sputum and blood culture -Due to extended course of illness and extend of pneumonia on CT scan - started on broad spectrum IV antibiotics for concern of bacterial infection. Adding prednisone provided significant improvement in symptoms. -Since procal and cultures neg - discharged on prednisone and azithromycin to finish the course. Renal cell cancer with presumed metastasis - per CT scan findings -Outpatient oncology follow-up
--- NOTE | 2024-04-08 17:33 | Communication Note ---
Date of Service: April 08, 2024 By CMS guidelines, a determination that the admission or continued stay is not medically necessary has been made by a member of the UR committee and a physic jacquelyn for this hospital stay, therefore a Code 44 will be completed and the Inpatient admission will be changed to outpatient.
--- NOTE | 2024-04-08 17:36 | Communication Note ---
Date of Service: April 08, 2024 By CMS guidelines, a determination that the admission or continued stay is not medically necessary has been made by a member of the UR committee and a physi nalini for this hospital stay, therefore a Code 44 will be completed and the Inpatient admission will be changed to outpatient.
== END 2024-04-08 14:31 | disposition home or self-care (01) | DRG 391 ==
LOC: EDINP 14:17 → ED 14:17 → 3E 21:06 → SUATTDRO 04-02 18:06
DX: E86.0 Dehydration; J15.9 Unspecified bacterial pneumonia; N17.9 Acute kidney failure, unspecified; Z96.641 Presence of right artificial hip joint; R09.02 Hypoxemia; A08.39 Other viral enteritis; Z88.5 Allergy status to narcotic agent; Z87.891 Personal history of nicotine dependence; C77.1 Secondary and unspecified malignant neoplasm of intrathoracic lymph nodes; Z83.3 Family history of diabetes mellitus; Z85.528 Personal history of other malignant neoplasm of kidney; C79.51 Secondary malignant neoplasm of bone; Z90.5 Acquired absence of kidney

== ENCOUNTER 2025-06-25 23:19 | Observation (INO) ==
--- NOTE | 2025-06-26 00:01 | Emergency Department Note ---
Impression & Plan Atypical chest pain, COPD (chronic obstructive pulmonary disease), Lymphadenopathy ED Provider Note Provider: Amilcar Hurst MD CHIEF COMPLAINT: Chest discomfort HISTORY OF PRESENT ILLNESS: Patient is a 85-year-old female history of renal cell cancer status post nephrectomy and COPD presenting here today reporting that throughout the day today she experiencing intermittent waxing waning pain in the left chest. This evening radiated bit down to the left arm. Took some Tylenol at 9 PM and later neighbor around 10:30 PM gave her full dose aspirin. Symptoms have started to tanner some. No significant change in chronic mild shortness of breath. No leg swelling. No travel. No fever. No abdominal pain or nausea or vomiting. Pain does wrap in the left chest some. States it was a bit worse with exertion. No syncope. No trauma. Does have some chronic lymphadenopathy in her chest she reports that it has been stable for years with monitoring by her oncologist. PAST MEDICAL HISTORY: As noted above MEDICATIONS: Reviewed home medications SOCIAL HISTORY: Still works 2 days a week at [employer], former smoker PHYSICAL EXAM: GENERAL: alert and oriented in no acute distress on stretcher Head: normocephalic and atraumatic EYES: No injection, discharge or icterus. NECK: Trachea midline. ENT: Mucous membranes pink and moist. LUNGS: Airway patent. No retractions. Breath sounds clear to anterior auscultation without work of breathing HEART: Regular rate and rhythm. No chest wall tenderness ABDOMEN: Soft and non-tender, without guarding or rebound. SKIN: Acyanotic, warm, dry, without rashes EXTREMITIES: Without swelling, tenderness or deformity NEUROLOGICAL: No focal deficits. No aphasia. No facial droop or slurred speech. Ambulatory. EK bpm sinus rhythm with PAC. No PVC. No acute ST segment elevation or depression with a QTc of 444. CONTINUOUS CARDIAC MONITORING: was ordered and showed a heart rate of 50s to 60s bpm in sinus rhythm occasional PACs Patient's laboratory studies and imaging reviewed. Differential includes Cardiac ischemia, aortic dissection, pulmonary embolism, pneumothorax, pneumonia, pericarditis, myocarditis, esophageal rupture, GERD, cholecystitis, pancreatitis, musculoskeletal, as well as other pathologies. IMPRESSION/MEDICAL DECISION MAKING: Patient with reports of left-sided chest discomfort today without worsening of her underlying breathing given her COPD. EKG here without significant abnormalities. Chest x-ray obtained and reviewed by myself without significant finding and she denies significant new pulmonary symptoms. Not experiencing fevers and no leukocytosis I doubt this is infectious. No findings concerning for hepatitis or pancreatitis. She denies other GI symptoms. Troponin returns normal which is reassuring given her symptoms going on all day. Do have some concerns given her age however this could be an occult cardiac process. I have a lower suspicion for dissection or PE at this time based on her clinical history and presentation. Patient without significant leg swelling. Doubt heart failure. Blood work here is reassuring. No troponin elevation which is quite reassuring against a acute SC given the duration of her symptoms. No findings of significant renal dysfunction compared to baseline. Doubt this is GI related. Discussed with the patient possibility of close outpatient follow-up for staying for observation and she felt uncomfortable going home at this time. Reached out to the hospitalist team. They did further review her chart including recent outpatient testing with findings of the inflammatory changes of the right upper lung. They will treat for possible occult infection. Unsure if her discomfort today is cardiac versus muscular versus related to underlying lymphadenopathy/inflammatory lung process. DIAGNOSIS: Atypical chest pain, COPD DISPOSITION: Hospitalist will evaluate Patient was agreeable with this plan. Past Med/Surg History Problem List (Updated 06/26/25 @ 03:01 by Amilcar Hurst M.D.) Lymphadenopathy (Acute) COPD (chronic obstructive pulmonary disease) (Acute) Atypical chest pain (Acute) COPD exacerbation Acute respiratory failure with hypoxia LAD (lymphadenopathy), mediastinal Multiple pulmonary nodules Hemoptysis Chronic bronchitis Emphysema lung emphysematous change per cxr Arthritis of carpometacarpal (CMC) joint of left thumb De Quervain's tenosynovitis, left CAP (community acquired pneumonia) Cough (Acute) Thoracic lymphadenopathy Right ankle pain Trochanteric bursitis of right hip Hand arthritis Rotator cuff syndrome of left shoulder Urinary incontinence Urgency of urination Total knee replacement status Arthritis (Acute) Cervical lymphadenopathy (Acute) Clear cell carcinoma of kidney (Acute) Nausea (Acute) Encounter for pre-operative examination Renal cell cancer (Chronic) Leg pain, right (Acute) Intractable abdominal pain Renal mass, right Medical History Diarrhea Hypoxemia Enterovirus infection Acute dehydration Emphysema lung Psoriasis Osteoarthritis Hx of renal cell cancer Surgical History Hx of appendectomy History of right hip replacement Hx of cholecystectomy Hx of hysterectomy History of right nephrectomy Family History Sister Diabetes Hypertension Lung cancer Denies family history of Myocardial infarction Colorectal cancer Cancer Social History Smoking Status: Former smoker Tobacco Type: Cigarettes Age Started Using Tobacco: 20; Age Quit Using Tobacco: 81; Cigarettes Per Day: 2-3 CIGARETTES/DAY; INTERMITTENT X SEVERAL YEARS; Second Hand Exposure: No; Do You Dip or Chew Tobacco: No; Hx Alcohol Use: No Hx Substance Use: No Preferred Language: [place]al[place] Communication Ability: Effective Visual Impairment: No Limitations Tooth Inspector Required: No Beliefs That Will Affect Care: None Current Living Situation: Alone Current Living Situation Comment: house Feels Safe at Home: Yes Assistive Devices: None Allergies Allergies Allergy/AdvReac Type Severity Reaction Status Date / Time codeine AdvReac Unknown NAUSEA AND Verified 05/04/25 10:39 VOMITING Home Meds Home Medications Medication Instructions Recorded Confirmed acetaminophen 500 mg tablet 500 mg PO Q6H PRN PAIN/FEVER 03/31/24 05/04/25 Previous Rx's Medication Instructions Recorded albuterol sulfate 90 mcg/actuation 1 inh inhalation Q6H PRN shortness 04/08/24 aerosol inhaler of breath or wheezing #6.7 grams umeclidinium 62.5 mcg-vilanterol 1 inh inhalation DAILY #60 ea 06/22/25 25 mcg/actuation powdr for inhalation (Anoro Ellipta) Results & Data (ED) Vital Signs Vital Signs - 24 hr 06/25/25 23:30 06/25/25 23:43 06/25/25 23:50 Temperature 36.6 C Temperature Source Oral Pulse Rate 67 58 L 63 Pulse Rate from SpO2 Sensor Pulse Rhythm Regular Respiratory Rate 17 18 Respiratory Effort / Characteristics Non-Labored Spontaneous Respiratory Depth Normal Respiratory Pattern Regular Blood Pressure 149/84 H Blood Pressure Mean 105 Pulse Oximetry 93 94 Oxygen Delivery Method Room Air Room Air Oxygen Flow Rate Sepsis Recent Fever Within 48 Hours No Sepsis New/Unexplained Change in Mental Status N/A Sepsis Action Taken by Nursing No Action Required 06/26/25 00:50 06/26/25 01:00 06/26/25 01:30 Temperature Temperature Source Pulse Rate 56 L 51 L 48 L Pulse Rate from SpO2 Sensor 51 L 49 L Pulse Rhythm Respiratory Rate 20 21 19 Respiratory Effort / Characteristics Respiratory Depth Respiratory Pattern Blood Pressure 169/84 H 125/64 Blood Pressure Mean 104 84 Pulse Oximetry 94 97 92 Oxygen Delivery Method Nasal Cannula Nasal Cannula Oxygen Flow Rate 2 2 Sepsis Recent Fever Within 48 Hours Sepsis New/Unexplained Change in Mental Status Sepsis Action Taken by Nursing 06/26/25 02:00 Temperature Temperature Source Pulse Rate 48 L Pulse Rate from SpO2 Sensor Pulse Rhythm Respiratory Rate 19 Respiratory Effort / Characteristics Respiratory Depth Respiratory Pattern Blood Pressure 133/72 Blood Pressure Mean 92 Pulse Oximetry 93 Oxygen Delivery Method Nasal Cannula Oxygen Flow Rate 2 Sepsis Recent Fever Within 48 Hours Sepsis New/Unexplained Change in Mental Status Sepsis Action Taken by Nursing Laboratory Data 06/25/25 23:50 06/25/25 23:50 Lab Results 06/25/25 Range/Units 23:50 WBC 6.87 (4.8-10.8) K/ul RBC 4.31 (4.20-5.40) M/uL Hgb 12.3 (12.0-16.0) g/dl Hct 38.9 (37.0-47.0) % MCV 90.3 (80.0-100.0) fL MCH 28.5 (25.0-34.0) pg MCHC 31.6 L (32.0-36.0) g/dL RDW Std Deviation 45.1 (36.4-46.3) fL RDW Coeff of Ketty 13.6 (11.5-14.5) % Plt Count 257 (130-400) K/uL MPV 9.8 (9.4-12.4) fL Immature Gran % (Auto) 0.3 % Neut % (Auto) 62.4 % Lymph % (Auto) 27.8 % [place] % (Auto) 7.3 % Eos % (Auto) 1.3 % Baso % (Auto) 0.9 % Neut # (Auto) 4.29 (1.40-6.50) K/uL Lymph # (Auto) 1.91 (1.20-3.40) K/uL [place] # (Auto) 0.50 (0.11-0.59) K/uL Eos # (Auto) 0.09 (0.00-0.50) K/uL Baso # (Auto) 0.06 (0.00-0.20) K/uL Immature Gran # (Auto) 0.02 (0.01-0.20) K/uL PT 10.1 (9.0-12.0) Seconds INR 0.9 (0.9-1.1) Sodium 139 (136-145) mmol/L Potassium 4.1 (3.5-5.1) mmol/L Chloride 109 H (98-107) mmol/L Carbon Dioxide 22 (21-32) mmol/L Anion Gap 8 (3-11) BUN 37 H (6-23) mg/dl Creatinine 1.18 (0.6-1.2) mg/dl Est Cr Clr Drug Dosing 27.7 ml/min eGFR 44.70 BUN/Creatinine Ratio 31.4 H (10-20) Glucose 105 H (70-99(Fasting)) mg/dl Calcium 8.8 (8.6-10.3) mg/dl Total Bilirubin 0.3 (0.2-1.0) mg/dl AST 12 L (13-39) U/L ALT 8 (7-52) U/L Alkaline Phosphatase 123 H (34-104) U/L Troponin I High Sens 4.7 (0-14) pg/ml Total Protein 6.3 (6.0-8.3) gm/dl Albumin 3.7 (3.4-5.0) gm/dl Globulin 2.6 (2.5-4.0) gm/dl Albumin/Globulin Ratio 1.4 (0.9-2) Lipase 62 (11-82) U/L Administered Medications Azithromycin (Zithromax) 500 mg in 255 mls @ 127.5 mls/hr IV NOW STA Stop: 06/26/25 04:40 Last Admin: 06/26/25 02:53 Dose: 127.5 mls/hr Documented By: DOMINGO Discontinued Medications Albuterol (Albut/Ipratrop 3mg/0.5mg Neb 3 Ml Vial) 3 ml NEB NOW STA; Protocol Stop: 06/26/25 02:35 Last Admin: 06/26/25 02:52 Dose: 3 ml Documented By: DOMINGO Methylprednisolone (Methylprednisolone 125 Mg/2 Ml Vial) 20 mg IV NOW STA Stop: 06/26/25 02:35 Last Admin: 06/26/25 02:52 Dose: 20 mg Documented By: DOMINGO Imaging Data Radiologist's Impression: Chest X-Ray 06/25/25 23:50 EXAM: XR chest 1V portable CLINICAL HISTORY: Chest pain, nonspecific TECHNIQUE: An X-ray image of the chest is obtained in AP projection. COMPARISON: CT 04/27/25 was reviewed. FINDINGS: Pulmonary Parenchyma: Lungs are clear bilaterally. No evidence of consolidation, collapse, or focal opacities. No pulmonary nodules are identified. No evidence of pleural effusion or pleural thickening. Heart and Mediastinum: Heart size and shape are normal. Mediastinal and hilar lymphadenopathy, more prominent on the right, resulting in prominence of the right hilum and mediastinal contour, in keeping with prior CT findings. Atherosclerotic changes of the aortic arch. Bony Thorax: Degenerative changes of visualized skeleton. Bony thorax appears intact without fractures or deformities. Soft Tissues: Soft tissues overlying the chest wall are unremarkable. IMPRESSION: 1. No acute cardiopulmonary abnormalities are identified. 2. Mediastinal and hilar lymphadenopathy, more prominent on the right, as on prior CT. 3. No significant interval changes. Electronically signed by Apollo Edward 06-26-2025 01:28 AM Discharge Plan Visit Data Chief Complaint: Chest Pain Stated Complaint: CHEST PAIN, CONCERN ABT HEART ATTACK ED Provider: Amilcar Hurst Discharge Problem: Atypical chest pain, COPD (chronic obstructive pulmonary disease), Lymphadenopathy Patient Disposition: Being Evaluated by Hospitalist Condition: Fair Forms Stand Alone Forms: naaya Prescriptions Prescriptions: No Action umeclidinium-vilanterol [Anoro Ellipta] 62.5-25 mcg/actuation blister with device 1 inh inhalation DAILY Qty: 60 2RF acetaminophen 500 mg Tablet 500 mg PO Q6H PRN (Reason: PAIN/FEVER) albuterol sulfate 90 mcg/actuation HFA aerosol inhaler 1 inh inhalation Q6H PRN (Reason: shortness of breath or wheezing) Qty: 6.7 0RF Referrals Referrals: PCP,NO [Primary Care Provider] -
[2025-06-26 00:34] LABS: Hematocrit (blood only) 38.9 % (37.0-47.0); Hemoglobin 12.3 g/dl (12.0-16.0); Immature Granulocytes # (auto) 0.02 K/uL (0.01-0.20); Immature Granulocytes % (auto) 0.3 %; Mean Corpuscular Hemoglobin 28.5 pg (25.0-34.0); Mean Corpuscular Volume 90.3 fL (80.0-100.0); Platelet Count 257 K/uL (130-400); RDW Standard Deviation 45.1 fL (36.4-46.3); Red Blood Count 4.31 M/uL (4.20-5.40); White Blood Count 6.87 K/ul (4.8-10.8)
[2025-06-26 00:53] LABS: Alanine Aminotransferase 8.0 U/L (7-52); Albumin Globulin Ratio 1.4 (0.9-2); Alkaline Phosphatase 123.0 U/L (34-104); Anion Gap 8.0 (3-11); Bilirubin,Total 0.3 mg/dl (0.2-1.0); Blood Urea Nitrogen 37.0 mg/dl (6-23); Calcium 8.8 mg/dl (8.6-10.3); Carbon Dioxide 22.0 mmol/L (21-32); Chloride 109.0 mmol/L (98-107); Creatinine Clr Calc Pharmacy 27.7 ml/min; Globulin 2.6 gm/dl (2.5-4.0); Glucose 105.0 mg/dl (70-99(Fasting)); Lipase 62.0 U/L (11-82); Potassium 4.1 mmol/L (3.5-5.1); Sodium 139.0 mmol/L (136-145); Total Protein 6.3 gm/dl (6.0-8.3)
[2025-06-26 01:06] LABS: INR 0.9 (0.9-1.1); Prothrombin Time 10.1 Seconds (9.0-12.0)
--- NOTE | 2025-06-26 01:28 | XRay Report ---
EXAM: XR chest 1V portable CLINICAL HISTORY: Chest pain, nonspecific TECHNIQUE: An X-ray image of the chest is obtained in AP projection. COMPARISON: CT 04/27/25 was reviewed. FINDINGS: Pulmonary Parenchyma: Lungs are clear bilaterally. No evidence of consolidation, collapse, or focal opacities. No pulmonary nodules are identified. No evidence of pleural effusion or pleural thickening. Heart and Mediastinum: Heart size and shape are normal. Mediastinal and hilar lymphadenopathy, more prominent on the right, resulting in prominence of the right hilum and mediastinal contour, in keeping with prior CT findings. Atherosclerotic changes of the aortic arch. Bony Thorax: Degenerative changes of visualized skeleton. Bony thorax appears intact without fractures or deformities. Soft Tissues: Soft tissues overlying the chest wall are unremarkable. IMPRESSION: 1. No acute cardiopulmonary abnormalities are identified. 2. Mediastinal and hilar lymphadenopathy, more prominent on the right, as on prior CT. 3. No significant interval changes. Electronically signed by Apollo Edward 06-26-2025 01:28 AM
[2025-06-26] MEDS: ALBUT/IPRATROP 3MG/0.5MG NEB 3 ML VIAL NEB STA (02:52)
--- NOTE | 2025-06-26 02:52 | History & Physical Report ---
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 She reports that she had 2 inhalers called into pharmacy, but 1 cost $400 and the other cost $480, she could not afford either of them. She resents to the emergency department with symptoms of chest pain that began earlier in the day today and persisted throughout today. She came into the emergency department this evening, when she noted that the pain was going toward her left arm, and a friend of hers told her that it could be a heart attack. She took aspirin at home, and came in the ED for assessment Acute respiratory failure with hypoxia/COPD exacerbation/chronic bronchitis- Patient with diffuse inspiratory expiratory wheezing bilaterally, with coarse breath sounds Suspect her symptoms of chest discomfort are more likely due to this process Placed on methylprednisolone 20 mg IV every 8 hours Azithromycin 500 mg IV every 24 hours DuoNeb now, and every 2 hours as needed Guaifenesin extended release 600 mg p.o. every 12 hours Patient reports that she did at one time have inhaler that helped her, however, the ones most recently prescribed cost 400 or more dollars and she cannot afford them. Treat her with above regimen now, and try to have a inhaler prescribed for her in the outpatient setting which she can afford Chest pain radiating to left arm- Initial troponin 4.7 EKG did show normal sinus rhythm at 61, with PACs The patient will be admitted to telemetry for serial cardiac enzymes, serial EKG's, cardiac rhythm monitoring and a 2-D echocardiogram with Dopplers. Suspect issue is more related to acute exacerbation of her chronic bronchitis and COPD Renal cell cancer status post nephrectomy- Laboratory stable CT chest performed on 06/15 with no change in sternal and hilar lymphadenopathy, but did question an infectious inflammatory process in the right upper lobe History of Present Illness Chief Complaint: The patient presents to the emergency department with complaint of chest pain that began earlier in the day today, and occurred intermittently today, and then this evening reports pain going into her left arm. 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 She reports that she had 2 inhalers called into pharmacy, but 1 cost $400 and the other cost $480, she could not afford either of them. She resents to the emergency department with symptoms of chest pain that began earlier in the day today and persisted throughout today. She came into the emergency department this evening, when she noted that the pain was going toward her left arm, and a friend of hers told her that it could be a heart attack. She took aspirin at home, and came in the ED for assessment Allergies Allergy/AdvReac Type Severity Reaction Status Date / Time codeine AdvReac Unknown NAUSEA AND Verified 05/04/25 10:39 VOMITING Home Medications Medication Instructions Recorded Confirmed Type acetaminophen 500 mg tablet 500 mg PO Q6H PRN PAIN/FEVER 03/31/24 05/04/25 History albuterol sulfate 90 mcg/actuation 1 inh inhalation Q6H PRN shortness 04/08/24 05/04/25 Rx aerosol inhaler of breath or wheezing #6.7 grams umeclidinium 62.5 mcg-vilanterol 1 inh inhalation DAILY #60 ea 06/22/25 Rx 25 mcg/actuation powdr for inhalation (Anoro Ellipta) Past Med/Surg History Problem List (Updated 06/26/25 @ 02:47 by Melquiades Saleem MD) COPD exacerbation Acute respiratory failure with hypoxia LAD (lymphadenopathy), mediastinal Multiple pulmonary nodules Hemoptysis Chronic bronchitis Emphysema lung emphysematous change per cxr Arthritis of carpometacarpal (CMC) joint of left thumb De Quervain's tenosynovitis, left CAP (community acquired pneumonia) Cough (Acute) Thoracic lymphadenopathy Right ankle pain Trochanteric bursitis of right hip Hand arthritis Rotator cuff syndrome of left shoulder Urinary incontinence Urgency of urination Total knee replacement status Arthritis (Acute) Cervical lymphadenopathy (Acute) Clear cell carcinoma of kidney (Acute) Nausea (Acute) Encounter for pre-operative examination Renal cell cancer (Chronic) Leg pain, right (Acute) Intractable abdominal pain Renal mass, right Medical History Diarrhea Hypoxemia Enterovirus infection Acute dehydration Emphysema lung Psoriasis Osteoarthritis Hx of renal cell cancer Surgical History Hx of appendectomy History of right hip replacement Hx of cholecystectomy Hx of hysterectomy History of right nephrectomy Family History Sister Diabetes Hypertension Lung cancer Denies family history of Myocardial infarction Colorectal cancer Cancer Social History Smoking Status: Former smoker Tobacco Type: Cigarettes Age Started Using Tobacco: 20; Age Quit Using Tobacco: 81; Cigarettes Per Day: 2-3 CIGARETTES/DAY; INTERMITTENT X SEVERAL YEARS; Second Hand Exposure: No; Do You Dip or Chew Tobacco: No; Hx Alcohol Use: No Hx Substance Use: No Preferred Language: German Communication Ability: Effective Visual Impairment: No Limitations Monotype Keyboard Operator Required: No Beliefs That Will Affect Care: None Current Living Situation: Alone Current Living Situation Comment: house Feels Safe at Home: Yes Assistive Devices: None Review of Systems Review of Systems: The patient denies palpitations, lower extremity swelling, sore throat, fevers, chills, sweats, nausea, vomiting, diarrhea , constipation, abdominal pain, pelvic pain, blood in urine or stool, dysuria, urinary frequency or urgency, lightheadedness, dizziness, headache, memory loss, loss of consciousness, rash, abnormal bruising or bleeding, imbalance, generalized arthralgias or myalgias, back or neck pain, or night sweats. The review of systems is otherwise negative other than for that already noted above, and at least 10 systems have been reviewed. Physical Exam Physical Exam: The patient is awake, alert and oriented 3, well developed and well nourished, normocephalic and atraumatic, lying in bed and in no acute distress. HEENT--PERRL, EOMI, mucous membranes and oropharynx normal. Neck--supple. No JVD. No bruits. Thyroid normal, trachea midline, no adenopathy. Heart--normal S1 and S2. No murmurs, rubs or gallops. Lungs-- diffuse wheezes and coarse breath sounds bilaterally Abdomen--normal bowel sounds and soft. Nontender. Nondistended Extremities-- No edema. Dermatologic--normal skin turgor, normal color, no abnormal lymph nodes, no rash. Neurologic--cranial nerves II through XII grossly intact. Rheumatologic--normal range of motion. Psychiatric--normal affect. Results & Data Results & Data Vital Signs (Past 12 Hours) Vital Signs Temp Pulse Resp BP Pulse Ox O2 Del Method O2 Flow Rate 06/26/25 02:00 48 L 19 133/72 93 Nasal Cannula 2 06/26/25 01:30 48 L 19 92 Nasal Cannula 2 06/26/25 01:00 51 L 21 125/64 97 Nasal Cannula 2 06/26/25 00:50 56 L 20 169/84 H 94 06/25/25 23:50 63 18 94 Room Air 06/25/25 23:43 58 L 06/25/25 23:30 36.6 C 67 17 149/84 H 93 Room Air Laboratory Results Laboratory Results WBC 6.87 K/ul (4.8-10.8) 06/25/25 23:50 RBC 4.31 M/uL (4.20-5.40) 06/25/25 23:50 Hgb 12.3 g/dl (12.0-16.0) 06/25/25 23:50 Hct 38.9 % (37.0-47.0) 06/25/25 23:50 MCV 90.3 fL (80.0-100.0) 06/25/25 23:50 MCH 28.5 pg (25.0-34.0) 06/25/25 23:50 MCHC 31.6 g/dL (32.0-36.0) L 06/25/25 23:50 RDW Std Deviation 45.1 fL (36.4-46.3) 06/25/25 23:50 RDW Coeff of Ketty 13.6 % (11.5-14.5) 06/25/25 23:50 Plt Count 257 K/uL (130-400) 06/25/25 23:50 MPV 9.8 fL (9.4-12.4) 06/25/25 23:50 Immature Gran % (Auto) 0.3 % 06/25/25 23:50 Neut % (Auto) 62.4 % 06/25/25 23:50 Lymph % (Auto) 27.8 % 06/25/25 23:50 [place] % (Auto) 7.3 % 06/25/25 23:50 Eos % (Auto) 1.3 % 06/25/25 23:50 Baso % (Auto) 0.9 % 06/25/25 23:50 Neut # (Auto) 4.29 K/uL (1.40-6.50) 06/25/25 23:50 Lymph # (Auto) 1.91 K/uL (1.20-3.40) 06/25/25 23:50 [place]ham # (Auto) 0.50 K/uL (0.11-0.59) 06/25/25 23:50 Eos # (Auto) 0.09 K/uL (0.00-0.50) 06/25/25 23:50 Baso # (Auto) 0.06 K/uL (0.00-0.20) 06/25/25 23:50 Immature Gran # (Auto) 0.02 K/uL (0.01-0.20) 06/25/25 23:50 PT 10.1 Seconds (9.0-12.0) 06/25/25 23:50 INR 0.9 (0.9-1.1) 06/25/25 23:50 Sodium 139 mmol/L (136-145) 06/25/25 23:50 Potassium 4.1 mmol/L (3.5-5.1) 06/25/25 23:50 Chloride 109 mmol/L (98-107) H 06/25/25 23:50 Carbon Dioxide 22 mmol/L (21-32) 06/25/25 23:50 Anion Gap 8 (3-11) 06/25/25 23:50 BUN 37 mg/dl (6-23) H 06/25/25 23:50 Creatinine 1.18 mg/dl (0.6-1.2) 06/25/25 23:50 Est Cr Clr Drug Dosing 27.7 ml/min 06/25/25 23:50 eGFR 44.70 06/25/25 23:50 BUN/Creatinine Ratio 31.4 (10-20) H 06/25/25 23:50 Glucose 105 mg/dl (70-99(Fasting)) H 06/25/25 23:50 Calcium 8.8 mg/dl (8.6-10.3) 06/25/25 23:50 Total Bilirubin 0.3 mg/dl (0.2-1.0) 06/25/25 23:50 AST 12 U/L (13-39) L 06/25/25 23:50 ALT 8 U/L (7-52) 06/25/25 23:50 Alkaline Phosphatase 123 U/L (34-104) H 06/25/25 23:50 Troponin I High Sens 4.7 pg/ml (0-14) 06/25/25 23:50 Total Protein 6.3 gm/dl (6.0-8.3) 06/25/25 23:50 Albumin 3.7 gm/dl (3.4-5.0) 06/25/25 23:50 Globulin 2.6 gm/dl (2.5-4.0) 06/25/25 23:50 Albumin/Globulin Ratio 1.4 (0.9-2) 06/25/25 23:50 Lipase 62 U/L (11-82) 06/25/25 23:50 Impressions Chest X-Ray 06/25/25 23:50 EXAM: XR chest 1V portable CLINICAL HISTORY: Chest pain, nonspecific TECHNIQUE: An X-ray image of the chest is obtained in AP projection. COMPARISON: CT 04/27/25 was reviewed. FINDINGS: Pulmonary Parenchyma: Lungs are clear bilaterally. No evidence of consolidation, collapse, or focal opacities. No pulmonary nodules are identified. No evidence of pleural effusion or pleural thickening. Heart and Mediastinum: Heart size and shape are normal. Mediastinal and hilar lymphadenopathy, more prominent on the right, resulting in prominence of the right hilum and mediastinal contour, in keeping with prior CT findings. Atherosclerotic changes of the aortic arch. Bony Thorax: Degenerative changes of visualized skeleton. Bony thorax appears intact without fractures or deformities. Soft Tissues: Soft tissues overlying the chest wall are unremarkable. IMPRESSION: 1. No acute cardiopulmonary abnormalities are identified. 2. Mediastinal and hilar lymphadenopathy, more prominent on the right, as on prior CT. 3. No significant interval changes. Electronically signed by Apollo Edward 06-26-2025 01:28 AM Code Status & VTE Plan Code Status DNR/DNI VTE Prophylaxis Plan VTE Prophylaxis will be ordered: Yes PG Care Time/CCT Total # of Minutes Spent Total Time Spent with Patient: Total time spent is greater than 50% in coordination of care (as documented) at patient's floor/unit and/or counseling patient: Coding Level of Care Code 99306 INT INP/OBS CARE MIN Diagnoses Acute respiratory failure with hypoxia J96.01 Chronic bronchitis J42 COPD exacerbation J44.1 LAD (lymphadenopathy), mediastinal R59.0
[2025-06-26] MEDS: AZITHROMYCIN 500 MG/255 ML BAG IV STA (02:53)
[2025-06-26] MEDS ORDERED: NITROGLYCERIN SL 0.4 MG/TAB TAB SL PRN (03:53)
[2025-06-26] MEDS ORDERED: ONDANSETRON INJ 2 MG/ML 2 ML VIAL IV PRN (03:53)
[2025-06-26] MEDS ORDERED: ALBUTEROL HFA 8 GM INHALER INH PRN (03:53)
[2025-06-26] MEDS ORDERED: ACETAMINOPHEN 325 MG TAB PO PRN (03:53)
[2025-06-26 04:08] VITALS: O2SAT 94
[2025-06-26] MEDS ORDERED: ALBUT/IPRATROP 3MG/0.5MG NEB 3 ML VIAL NEB PRN (05:00)
[2025-06-26 05:09] LABS: Anion Gap 5.0 (3-11); Blood Urea Nitrogen 32.0 mg/dl (6-23); Calcium 8.6 mg/dl (8.6-10.3); Carbon Dioxide 23.0 mmol/L (21-32); Chloride 110.0 mmol/L (98-107); Creatinine Clr Calc Pharmacy 28.3 ml/min; Glucose 129.0 mg/dl (70-99(Fasting)); Potassium 4.2 mmol/L (3.5-5.1); Sodium 138.0 mmol/L (136-145)
[2025-06-26 08:09] VITALS: BP 120/66; PULSE 55; RESP 14; TEMP 97.9
[2025-06-26] MEDS: guaiFENesin 600 MG TABCR PO SCH (08:44)
[2025-06-26] MEDS: HEPARIN SOD 5,000 UNIT/0.5 ML VIAL SQ SCH (09:26)
[2025-06-26] MEDS: predniSONE 20 MG TAB PO SCH (09:37)
[2025-06-26] MEDS ORDERED: methylPREDNISolone 10 mg/mL (For Ped Dose < 7mg) IV SCH (10:00)
--- NOTE | 2025-06-26 11:25 | Electrocardiogram Report ---
Test Reason : Blood Pressure : */* mmHG Vent. Rate : 61 BPM Atrial Rate : 61 BPM P-R Int : 160 ms QRS Dur : 80 ms QT Int : 442 ms P-R-T Axes : 17 29 37 degrees QTcB Int : 444 ms Sinus rhythm with Premature atrial complexes Otherwise normal ECG When compared with ECG of 31-Mar-2024 15:02, Premature atrial complexes are now Present Confirmed by Royce Morejon ([id number]) on 06/26/2025 11:24:58 AM Referred By: REFERRED SELF Confirmed By: Royce Morejon
--- NOTE | 2025-06-26 11:58 | XCELERA ---
[id number]
--- NOTE | 2025-06-26 14:43 | Discharge Summary ---
Discharge Summary Date of Service June 26, 2025 Principal Dx & Hospital Course #1 = Principal Diagnosis (1) Atypical chest pain: Plan in summary this is an 85-year-old female who presented to the [facility] on 06/25 due to intermittent left arm discomfort that began in the midday during activity, was not specifically exacerbated by activity but then extended to involve the entirety of her left upper extremity, she subsequently presented for further evaluation. The patient's EKG was without any evidence of ischemic changes; her troponin trend was without abnormality. A TTE was obtained and was overall unremarkable. There is no evidence for an acute coronary syndrome at this time. There was concern of a possible COPD exacerbation though the patient does not have a proper diagnosis of COPD given no prior PFT analysis though there is one ordered for 07/08. She be discharged with a prednisone burst, and referred back to her primary care physician for further assessment. 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 She reports that she had 2 inhalers called into pharmacy, but 1 cost $400 and the other cost $480, she could not afford either of them. She resents to the emergency department with symptoms of chest pain that began earlier in the day today and persisted throughout today. She came into the emergency department this evening, when she noted that the pain was going toward her left arm, and a friend of hers told her that it could be a heart attack. She took aspirin at home, and came in the ED for assessment Discharge Exam General: Elderly female in no acute distress Vital Signs: reviewed HEENT: pupils equally round reactive to light; extraocular muscles intact Pulmonary: symmetric chest wall excursion; clear to auscultation bilaterally Cardiovascular: regular rate and rhythm without murmurs rubs or gallops; normal S1 and S2; bilateral radial posterior tibial pulse 2+; no notable lower extremity edema Neurologic: CN II-XII grossly intact; no discernible focal weakness nor paresthesias Discharge Plan Discharge Items Patient Disposition: Home - Self-Care Reason For Visit: ACUTE RESP FAILURE WITH HYPXIA, COPD EX, BRONCHITI Discharge Diagnosis: Chest pain, rule out ACS Condition on Discharge: Good Activity: Per Instructions section Non-emergency contact: Primary Care Provider Call non-emergency contact if: your symptoms worsen Follow-up/Referrals: PCP,NO [Primary Care Provider] - Diet: Regular Fluids: 1800ml (7 cups) Addtl Attending Provider Instructions: You were admitted to [facility] for Observation due to concern for chest pain that may be related to ACS. With regard to your presenting symptoms, it was likely musculoskeletal in nature given the normal laboratory assessment and EKG that was obtained, ruling out any cardiac involvement. There was concern by the admitting provider for possible COPD exacerbation however given your rapid improvement, lack of preceding symptoms typically associated with a COPD exacerbation, this is unlikely. Nonetheless, we will discharge you with a 5-day course of prednisone, side effects were reviewed at bedside. We recommend close follow-up with your primary care physician to discuss your presenting symptomatology and additional outpatient laboratory or diagnostic testing they feel is appropriate. Thank you for choosing [facility] as your healthcare provider. Pending Studies at Discharge: No Stand-Alone Forms: My [facility] Medications and DC Order Prescriptions: New prednisone 20 mg Tablet 40 mg PO DAILY 4 Days Qty: 8 0RF Continued acetaminophen 500 mg Tablet 500 mg PO Q6H PRN (Reason: PAIN/FEVER) Held umeclidinium-vilanterol [Anoro Ellipta] 62.5-25 mcg/actuation blister with device 1 inh inhalation DAILY Qty: 60 2RF Hold Instructions: Resume on 07/10/25. albuterol sulfate 90 mcg/actuation HFA aerosol inhaler 1 inh inhalation Q6H PRN (Reason: shortness of breath or wheezing) Qty: 6.7 0RF Hold Instructions: Resume on 07/10/25. Discharge Orders: Discharge Order (Routine); Ordered 06/26/25 Ordered By: Michele Zacarias Admission Data Admit Date/Time: 06/26/25 02:39 Attending Provider: Michele Zacarias Admit Provider: Melquiades Saleem Primary Care Provider: PCP,NO Other Providers: Melquiades Saleem Other Interventions: Discharge Summary Assessment (RN) Last Done: 06/26/25 10:40 Hospital Stay Data Consultations 06/26/25 02:08 ED Decision to Admit Stat Pending Results Patient Have Any Pending Studies at Discharge: No Discharge Instructions Given to Patient (Per Discharging Provider) You were admitted to [facility] for Observation due to concern for chest pain that may be related to ACS. With regard to your presenting symptoms, it was likely musculoskeletal in nature given the normal laboratory assessment and EKG that was obtained, ruling out any cardiac involvement. There was concern by the admitting provider for possible COPD exacerbation however given your rapid improvement, lack of preceding symptoms typically associated with a COPD exacerbation, this is unlikely. Nonetheless, we will discharge you with a 5-day course of prednisone, side effects were reviewed at bedside. We recommend close follow-up with your primary care physician to discuss your presenting symptomatology and additional outpatient laboratory or diagnostic testing they feel is appropriate. Thank you for choosing [facility] as your healthcare provider. Home Health Attestation I certify that this patient is under my care and that I, or a physicians stacy hawley working with me, had a face to-face encounter that meets the home health [id number] encounter requirements with this patient. The encounter with the patient was in whole, or in part, for the following medical condition, which is the primary reason for home health care (list medical condition): I certify that, based on my findings, the following services are medically necessary home health services: My clinical findings support the need for the above services because: Further, I certify that my clinical findings support that this patient is homebound (i.e. absences from home require considerable and taxing effort and are for medical reasons or christianity services or infrequently or of short duration when for other reasons) because: Certification for Home Health Services: Based on the above findings, I certify that this patient is confined to the home and needs intermittent care home care, physical therapy and/or speech therapy or continues to need occupational therapy. The patient is under my care, and I have initiated the establishment of the plan of care. This patient will be followed by a physician who will periodically review the plan of care. Total Time Total Time Spent Total Time Spent (In Minutes): 45 Coding Level of Care Code INP/OBS EV SAME DAY LV 1,45MIN Diagnoses Atypical chest pain R07.89
[2025-06-27] MEDS ORDERED: AZITHROMYCIN 500 MG/255 ML BAG IV SCH (03:00)
== END 2025-06-26 14:38 | disposition home or self-care (01) ==
LOC: SUATTDRO → 4W 23:19 → ED 23:19 → SUATTDRO 06-26 02:39 → 4W 06-26 03:10